=== PATIENT | male | born 1955 | race Caucasian/White ===

== ENCOUNTER → 2016-08-23 | Outpatient (CLI) | payer OTHER ==
[~2016-08-23] MED LIST: ALBU1AER9 INH; AMOX1TAB43 PO; FLUT1INH7 INH; FLUT220A INH; MIRT30TA2 PO; MULT-506 PO; NICO14DI5 TD; OLAN1TAB64 PO; PRED-301 PO; ROFL1TAB5 PO; ROSU20TA PO; SYMIN160 INH; TEMA30CA4 PO; TIOTCAP INH; VORT10TA PO; VORT10TA12 PEG; [UNRECOGNIZED DRUG - CODE] INH; doxepin PO
--- NOTE | 2016-08-23 09:56 | DIAGNOSTIC IMAGING REPORT ---
CHEST 2 VIEWS ROUTINE CLINICAL HISTORY: R06.02 Shortness of [id number] [id number] COMPARISON STUDY: 09/27/2012 FINDINGS: The bones soft tissues and hemidiaphragms are normal. The cardiomediastinal silhouette is normal. The lungs are clear. The pulmonary vasculature is normal. IMPRESSION: Negative chest. Electronically signed by: Wilber Canales M.D. 08/23/2016 9:55 AM Dictated Date/Time: 08/23/2016 9:54 AM
== END | disposition home or self-care (01) ==
LOC: C.RADBBURG 09:44
PROVIDERS: ATTEND Internal Medicine Pulmonary Disease
DX: J47.9 Bronchiectasis, uncomplicated (principal); R06.02 Shortness of breath

== ENCOUNTER → 2017-03-08 | Outpatient (CLI) | payer OTHER ==
--- NOTE | 2017-03-08 11:43 | DIAGNOSTIC IMAGING REPORT ---
CHEST 2 VIEWS ROUTINE HISTORY: 62 years-old Male BRONCHIECTASIS,COUGH COMPARISON: Chest radiographs 08/23/2016, CT chest 04/29/2015 TECHNIQUE: Frontal and lateral views of the chest FINDINGS: Cardiomediastinal and hilar silhouettes are within normal limits. There is atherosclerosis of the aorta. No pneumothorax, pleural effusion. Hazy right basilar opacity is best seen on the frontal projection. Lungs are mildly hyperinflated with diaphragmatic flattening. Abdomen is changes noted. Bones are grossly intact. IMPRESSION: 1. Hazy right basilar opacity seen best on the frontal projection suggests atelectasis or developing pneumonia. 2. Emphysema. The above report was generated using voice recognition software. It may contain grammatical, syntax or spelling errors. Electronically signed by: Trever Plummer M.D. 03/08/2017 11:42 AM Dictated Date/Time: 03/08/2017 11:40 AM
== END | disposition home or self-care (01) ==
LOC: C.RAD1850 11:28
PROVIDERS: ATTEND Physician Assistant
DX: J47.9 Bronchiectasis, uncomplicated (principal); R05 Cough; J43.9 Emphysema, unspecified

== ENCOUNTER 2017-03-22 15:41 | Inpatient (IN) | payer OTHER ==
[~2017-03-22] VITALS: Ht 167.6 cm; Wt 76.8 kg
[~2017-03-22 15:41] MED LIST changes: -AMOX1TAB43 PO; -FLUT1INH7 INH; -NICO14DI5 TD; -PRED-301 PO; -ROFL1TAB5 PO; -VORT10TA12 PEG
[2017-03-22 16:44] VITALS: BP 140/98; PULSE 111; TEMP 36.9; O2SAT 95; Ht 167.6 cm; Wt 76.8 kg
--- NOTE | 2017-03-22 16:56 | History and Physical ---
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 He was recently seen in her office on March 08 and was placed on Levaquin 500 daily x 7 days and prednisone taper for 8 days. His symptoms have not improved, therefore he went back to the office for an acute sick visit and was referred to the hospitalist service as a direct admission. The patient reports he has been feeling short of breath for at least 2 weeks now, with cough productive of yellow sputum. He is unable to walk more than 1 block before becoming acutely short of breath. He denies hemoptysis. The patient is a chronic smoker and admits to smoking at least 4 cigarettes today. The patient is interested in smoking cessation. He did have a DuoNeb treatment while in the office, and reports that that helped a little bit. While at the office today when he was seeing Evangelina Robles, she brought to his attention swelling around his neck. He reports that this has been present for some time now but it has worsened within the past week, it is nonpainful to touch, no reddness or warmth around the area. . 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 Hyperlipidemia bipolar disorder Insomnia Surgical history: History of ankle surgery History of eye surgery Abdominal hernia repair Wrist surgery Foot surgery Social History Smoking Status: Former Smoker Smokeless Tobacco Use: No Alcohol Use: none Drug Use: none Marital Status: single Housing status: lives alone Immunizations History of Influenza Vaccine: No History of Tetanus Vaccine?: No History of Pneumococcal: No History of Hepatitis B Vaccine: No Multi-Drug Resistant Organisms History of MDRO: No Allergies Coded Allergies: No Known Allergies (Verified , 12/04/15) Home Medications Scheduled Fluticasone Furoate-Vilanterol (Breo Ellipta 200-25 Mcg/INH), 1 PUFF INH DAILY Mirtazapine Soltab (Remeron Soltab), 30 MG PO HS Multivitamin (Multivitamin), 1 TAB PO DAILY Olanzapine (Zyprexa), 15 MG PO DAILY Roflumilast (Daliresp), 1 TAB PO DAILY Rosuvastatin Calcium (Crestor), 20 MG PO QAM Tiotropium [place] (Spiriva Handihaler), 1 CAP INH DAILY Vortioxetine HBr (Trintellix), 10 MG PEG DAILY [doxepin], 150 MG PO DAILY [ipratropium/alb], 3 ML INH DIRECTED Scheduled PRN Albuterol Sulfate (Proair Hfa), 2 PUFF INH QID PRN Temazepam (Restoril), 15 MG PO HS PRN for Sleep Review of Systems Constitutional: No fever, sweats or chills Eyes: No diplopia, no worsening or blurred vision ENT: normal hearing, no trouble swallowing Respiratory: See HPI. Cardiovascular: No chest pain, tightness or palpitations Abdomen: + Constipation. No pain, nausea, vomiting, diarrhea Musculoskeletal: No joint pain, calf pain, swelling Neurologic: No weakness, numbness/tingling, or balance problems, + does use a cane occasionally Psychiatric: Bipolar disorder Skin: No rash or itch Physical Exam General: awake, alert, no apparent distress Head: Normocephalic, atraumatic ENT: PERRL, EOMI, no pharyngeal exudate, mucous membranes moist, + cervical lymphadenopathy Chest: + supraclavicular edema-worse on right compared to left, soft to touch, + Prolonged expiratory phase, barrel chest, expiratory wheeze throughout, cough , on 2 L via NC, breath sounds throughout without rhonchi or rales. No axillary lymphadenopathy. Cardiac: Regular rate, + tachycardic, no murmur, no JVD, normal peripheral pulses, good capillary refill Abdominal: NABS x 4, slightly distended but soft, nontender to palpation, no rebound, guarding or tenderness. No femoral lymphadenopathy. 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 Shortness of breath ? Acute COPD exacerbation vs infectious etiology - Admit to telemetry - Failed outpatient therapy with antibiotics and prednisone - Checking CBC with differential, PRP, lactic acid, blood cultures 2, Ua and culture if indicated - Collect sputum culture- hx of acid fast bacilli - Check MRSA nasal swab - Checking a chest x-ray 2 view, consider CTA chest to r/o PE after PRP resulted - Pulmonary toilet ordered with Solu-Medrol 60 mg Q8H, Mucinex, flutter, incentive spirometry - Continue spiriva inh, daliresp 500 mcg PO daily, and breoeliptra inh - Start Zosyn and vancomycin IV 48 hours for empiric coverage since he has failed outpatient Levaquin 1 week. - Pt follows with Evangelina Valero as an outpatient in the pulmonary office, will consult Pulmonary team for further recommendations. New onset supraclavicular region lymphadenopathy - Pt reports as nonpainful with palpation. Appears bilaterally in supraclavicular regions, soft to the touch, appears to be worsening over the last week but patient reports has been present for an unknown amount of time. Overlying skin is not erythematous. Patient has not demonstrated fever. No other peripheral swelling. - Follow chest x-ray - Consider ultrasound or Chest CT, and consider FNA for further workup pending initial imaging results. Tachycardia - Checking a12 lead EKG now, Will check to make sure no underlying arrhythmia. - Patient does not take any oral hypertensive agents as an outpatient, likely due to his shortness of breath at this time. Will order Lopressor IV when necessary for tachycardia greater than 120 bpm. - Check troponin now and trend x 2 more sets - Consider CTA if Cr. ok to r/o PE. Bipolar disorder - Patient takes Trintellix 10 mg daily, will ask him to bring supply from home as this is not available as an inpatient - Continue olanzapine 15 mg daily - Follows with Dr. Veras at [id number], and was seen in office 1 month ago. Insomnia - Continue doxepin 150 mg QHS, mirtazapine 30 mg QHS, and temazepam 15 mg QHS prn Constipation - Ordered dulcolax tabs, MiraLAX, and milk of magnesia when necessary Hyperlipidemia - Continue Crestor 20 mg daily DVT prophylaxis: Heparin, teds, SCDs CODE STATUS: Full code Disposition: Admitted to telemetry, patient from home, lives alone. Level of Care Telemetry Advanced Directives Existing Advance Directive: No Existing Living Will: No Existing Power of Scaler Packer: No Existing Health Care Proxy: No Resuscitation Status FULL RESUSCITATION VTE Prophylaxis VTE Risk Assessment Done? Y/N: Yes Risk Level: Low Given or contraindicated: Unfractionated heparin SQ, T.E.D. Stockings, SCD's
[2017-03-22] MEDS ORDERED: PIPERACILL/TAZOBAC IV 4.5 GM in DEXTROSE 5% 100ML 100 ML IV SCH (17:30)
[2017-03-22] MEDS ORDERED: POLYETHYLENE (MIRALAX) 17 GM PACK PO PRN (17:30)
[2017-03-22] MEDS ORDERED: MAGNESIUM HYDROXIDE SUSP 30 ML UDC PO PRN (17:30)
[2017-03-22] MEDS ORDERED: TEMAZEPAM 15 MG CAP PO PRN (17:30)
[2017-03-22] MEDS ORDERED: ONDANSETRON INJ 2 MG/ML 2 ML VIAL IV PRN (17:30)
[2017-03-22] MEDS ORDERED: ACETAMINOPHEN 325 MG TAB PO PRN (17:30)
[2017-03-22] MEDS ORDERED: VORT10TA12 PEG (17:34)
[2017-03-22] MEDS ORDERED: ROFL1TAB5 PO (17:34)
[2017-03-22] MEDS ORDERED: FLUT1INH7 INH (17:34)
[2017-03-22 18:10] LABS: BASO % 0.9 %; BASO ABS # 0.08 K/uL (0-0.2); COMPLETE YES; HEMATOCRIT 48.2 % (42-52); IG% 1.2 %; LYMPH % 22.3 %; LYMPH ABS # 2.08 K/uL (1.2-3.4); MEAN CELL VOLUME 101.9 fL (80-100); MEAN CORPUSCULAR HEMOGLOBIN 33.2 pg (25-34); MEAN CORPUSCULAR HGB CONC 32.6 g/dl (32-36); MEAN PLATELET VOLUME 10.3 fL (7.4-10.4); MONO % 8.7 %; NEUT % 62.9 %; PLATELET COUNT 224 K/uL (130-400); RED BLOOD COUNT 4.73 M/uL (4.7-6.1); WHITE BLOOD COUNT 9.34 K/uL (4.8-10.8)
[2017-03-22] MEDS ORDERED: VANCOMYCIN INJ 2,000 MG in SODIUM CHLORIDE 0.9% 500ML 500 ML IV ONE (18:22)
[2017-03-22] MEDS ORDERED: METOPROLOL TARTRATE 1 MG/ML VIAL IV PRN (18:30)
[2017-03-22] MEDS ORDERED: PIPERACILL/TAZOBAC IV 3.375 GM in DEXTROSE 5% 100ML IV ONE (18:30)
[2017-03-22 18:32] LABS: BUN/CREATININE RATIO 22.1 (10-20); CALCIUM 9.7 mg/dl (8.5-10.1); CREATININE 0.88 mg/dl (0.60-1.40); POTASSIUM 4.1 mmol/L (3.5-5.1)
[2017-03-22] MEDS: NICOTINE 14 MG/24 HR TDSY TD SCH (18:42)
[2017-03-22] MEDS ORDERED: VANCOMYCIN CONSULT ACTIVE PRN (18:45)
[2017-03-22] MEDS ORDERED: PIPERACILL/TAZOBAC CONSULT ACTIVE PRN (18:45)
[2017-03-22 18:47] VITALS: BP 136/96; PULSE 111; TEMP 36.7; O2SAT 94
[2017-03-22] MEDS: METHYLPREDNISOLONE IV 60 MG in SYRINGE 0 ML IV SCH (18:50)
[2017-03-22] MEDS: BISACODYL 5 MG TABEC PO SCH (18:50)
[2017-03-22] MEDS: ALBUT/IPRATROP 3MG/0.5MG NEB 3 ML VIAL INH SCH (19:24)
[2017-03-22 19:26] VITALS: PULSE 106; O2SAT 95
[2017-03-22 19:45] LABS: INR 0.9 (0.9-1.1); PROTHROMBIN TIME (PATIENT) 9.9 SECONDS (9.0-12.0)
[2017-03-22 20:00] VITALS: O2SAT 95
[2017-03-22] MEDS ORDERED: OPTIRAY 320 IV PRN (20:00)
[2017-03-22] MEDS: DOXEPIN HCL 50 MG CAP PO SCH (20:40)
--- NOTE | 2017-03-22 20:40 | Pharmacy Progress Note ---
Pharmacy Abx Initial Consult Date of Service Mar 22, 2017. Pharmacy Dosing Scope Date of Consult: 03/22/17 Consultation requested by: Lucille Gordillo PA-C Pharmacy is consulted to initiate Vancomycin & Zosyn IV dosing therapy, order appropriate labs and adjust drug dose/frequency. Subjective The patient is a 62 year old male admitted on Mar 22, 2017 at 16:29. Objective Height (Feet): 5 Height (Inches): 6.00 Weight (Kilograms): 77.100 Vital Signs (Past 12Hrs) Vital Signs Past 12 Hours Date Time Temp Pulse Resp B/P (MAP) Pulse Ox O2 Delivery O2 Flow Rate FiO2 03/22/17 19:26 106 95 Nasal Cannula 2.0 03/22/17 18:47 36.7 111 24 136/96 (109) 94 Nasal Cannula 2.0 03/22/17 16:44 36.9 111 22 140/98 95 Nasal Cannula 2.0 Lab Results (24Hrs) Laboratory Tests (24 Hours) Test 03/22/17 17:47 Lactic Acid Level 0.3 mmol/L (0.4-2.0) L White Blood Count 9.34 K/uL (4.8-10.8) Red Blood Count 4.73 M/uL (4.7-6.1) Hemoglobin 15.7 g/dL (14.0-18.0) Hematocrit 48.2 % (42-52) Mean Corpuscular Volume 101.9 fL (80-100) H Mean Corpuscular Hemoglobin 33.2 pg (25-34) Mean Corpuscular Hemoglobin Concent 32.6 g/dl (32-36) Platelet Count 224 K/uL (130-400) Mean Platelet Volume 10.3 fL (7.4-10.4) Neutrophils (%) (Auto) 62.9 % Lymphocytes (%) (Auto) 22.3 % Monocytes (%) (Auto) 8.7 % Eosinophils (%) (Auto) 4.0 % Basophils (%) (Auto) 0.9 % Neutrophils # (Auto) 5.89 K/uL (1.4-6.5) Lymphocytes # (Auto) 2.08 K/uL (1.2-3.4) Monocytes # (Auto) 0.81 K/uL (0.11-0.59) H Eosinophils # (Auto) 0.37 K/uL (0-0.5) Basophils # (Auto) 0.08 K/uL (0-0.2) Micro Results Date/Time Source Procedure Growth Status 03/22/17 17:54 Blood Blood Culture Pending Received 03/22/17 17:47 Blood Blood Culture Pending Received 03/22/17 17:17 Nasal MRSA DNA Surveillance Screen Pending Ordered 03/22/17 17:51 Sputum Expectorated Sputum Gram Stain Pending Ordered 03/22/17 17:51 Sputum Expectorated Sputum Sputum Culture Pending Ordered Risk Factors for Resistance * Antimicrobial use within the last 90 days -- Levaquin 500mg po daily x 7 days prior to admission Assessment & Plan Assessment 62 year old male on empiric IV Vancomycin and Zosyn for unclear possible infectious process, possible pneumonia. * Patient was on Levaquin 500mg po daily x 7 days prior to admission * Renal function appears to be at baseline with recent sCr = 0.88 mg/dL and estimated CrCl ~87 mL/min. Estimated pharmacokinetic parameters: * Ke ~0.077/hr, T1/2 ~9 hrs Plan Vancomycin IV * Loading dose: 2000 mg (26 mg/kg) * Maintenance dose: 1250 mg IV (16 mg/kg) every 12 hours * Goal trough level for possible pneumonia : ~15 mcg/mL * Did not order trough level at this time due to empiric use of antibiotics. If Vancomycin to be continued >48 hours, will order level at that time Piperacillin/tazobactam * 3.375 g bolus administered over 30 minutes, then 3.375 g IV extended infusion every 8 hours for CrCl greater than 20 mL/min OR every 12 hours for CrCl 20 mL/ min or less and dialysis. Pharmacy will continue to follow and will adjust dose/frequency as necessary. Thank you.
[2017-03-22] MEDS: MIRTAZAPINE TAB 15 MG TAB PO SCH (20:41)
[2017-03-22] MEDS: GUAIFENESIN 600 MG TABCR PO SCH (20:56)
[2017-03-22] MEDS: ENOXAPARIN 40 MG/0.4 ML SYR SC SCH (20:57)
[2017-03-22] MEDS: INSULIN ASPART 100 UNITS/ML 3 ML PEN SC SCH (21:00)
--- NOTE | 2017-03-22 21:04 | DIAGNOSTIC IMAGING REPORT ---
CHEST 2 VIEWS ROUTINE CLINICAL HISTORY: Eval etiology of sob, hx COPD dyspnea COMPARISON STUDY: 03/08/2017 FINDINGS: Mild chronic interstitial change. No focal infiltrates. Diaphragms smooth. Lungs otherwise appear clear. IMPRESSION: Improved exam compared to the prior study. Mild chronic baseline interstitial change. The above report was generated using voice recognition software. It may contain grammatical, syntax or spelling errors. Electronically signed by: Wilber Canales M.D. 03/22/2017 9:03 PM Dictated Date/Time: 03/22/2017 9:02 PM
--- NOTE | 2017-03-22 21:11 | DIAGNOSTIC IMAGING REPORT ---
(CHEST FOR PE) ANGIO WITH CT DOSE: 545.82 mGy.cm HISTORY: Chest pain dyspnea TECHNIQUE: Multiaxial CT images of the chest were performed following the intravenous administration of contrast to evaluate the pulmonary arteries. Maximal intensity projection images were also obtained. A dose lowering technique was utilized adhering to the principles of ALARA. COMPARISON STUDY: 04/29/2015 FINDINGS: Mild atherosclerotic change thoracic aorta. Pulmonary vasculature enhances appropriately. There are no filling defects. Slight peribronchial thickening. Slight interstitial prominence throughout both hemithoraces. Small parenchymal infiltrate right base posteriorly. IMPRESSION: 1. No evidence for pulmonary embolus. 2. Mild interstitial and peribronchial prominence. 3. Focal infiltrate right base The above report was generated using voice recognition software. It may contain grammatical, syntax or spelling errors. Electronically signed by: Wilber Canales M.D. 03/22/2017 9:10 PM Dictated Date/Time: 03/22/2017 9:07 PM
[2017-03-22] MEDS: PIPERACILL/TAZOBAC IV 3.375 GM in DEXTROSE 5% 100ML IV SCH (22:41)
[2017-03-22 23:35] VITALS: BP 100/58; PULSE 102; TEMP 36.5; O2SAT 93
[2017-03-23] VITALS (9 sets, daily range): BP systolic 108–123; BP diastolic 72–92; PULSE 96–113; TEMP 36.6–36.8; O2SAT 92–96
[2017-03-23] MEDS: METHYLPREDNISOLONE IV 60 MG in SYRINGE 0 ML IV SCH ×3 (02:16→17:27)
[2017-03-23] MEDS: VANCOMYCIN INJ 1,250 MG in SODIUM CHLORIDE 0.9% 250ML 250 ML IV SCH ×2 (05:58→17:25)
[2017-03-23] MEDS: PIPERACILL/TAZOBAC IV 3.375 GM in DEXTROSE 5% 100ML IV SCH ×3 (06:00→20:41)
[2017-03-23 06:52] LABS: BASO % 0.2 %; BASO ABS # 0.02 K/uL (0-0.2); COMPLETE YES; EOS % 0.2 %; HEMATOCRIT 46.7 % (42-52); LYMPH % 6.7 %; LYMPH ABS # 0.69 K/uL (1.2-3.4); MEAN CELL VOLUME 100.9 fL (80-100); MEAN CORPUSCULAR HEMOGLOBIN 32.4 pg (25-34); MEAN CORPUSCULAR HGB CONC 32.1 g/dl (32-36); MEAN PLATELET VOLUME 10.4 fL (7.4-10.4); MONO % 0.7 %; NEUT % 91.2 %; PLATELET COUNT 226 K/uL (130-400); RED BLOOD COUNT 4.63 M/uL (4.7-6.1); WHITE BLOOD COUNT 10.28 K/uL (4.8-10.8)
[2017-03-23 06:59] LABS: URINE APPEARANCE CLEAR (CLEAR); URINE BILIRUBIN NEG (NEG); URINE COLOR YELLOW; URINE NITRITE NEG (NEG); URINE PH 5.5 (4.5-7.5); URINE SPECIFIC GRAVITY 1.031 (1.000-1.030); UROBILINOGEN NEG (NEG); ZZUR CULT IF INDIC CLEAN CATCH NO
[2017-03-23 07:01] LABS: MANUAL MICROSCOPIC REQUIRED? NO; REVIEW REQ? NO
[2017-03-23] MEDS: ALBUT/IPRATROP 3MG/0.5MG NEB 3 ML VIAL INH SCH ×4 (07:08→19:45)
[2017-03-23 07:18] LABS: BLOOD UREA NITROGEN 18 mg/dl (7-18); CALCIUM 9.1 mg/dl (8.5-10.1); CARBON DIOXIDE 26 mmol/L (21-32); CHLORIDE 106 mmol/L (98-107); CREATININE 0.82 mg/dl (0.60-1.40); ESTIMATED AVERAGE GLUCOSE 134 mg/dl; GLUCOSE 175 mg/dl (70-99); HA1C FLAG Normal (Normal); POTASSIUM 4.2 mmol/L (3.5-5.1); SODIUM 139 mmol/L (136-145)
[2017-03-23 07:22] LABS: CHOLESTEROL 231 mg/dl (0-200); CHOLESTEROL/HDL RATIO 4.9; HDL CHOLESTEROL 47 mg/dl; LDL CHOLESTEROL CALCULATED 140 mg/dl; TRIGLYCERIDES 221 mg/dl (0-150); VERY LOW DENSITY LIPOPROT CALC 44 mg/dl
[2017-03-23] MEDS: ROFLUMILAST 500 MCG TAB PO SCH (07:29)
[2017-03-23] MEDS: ROSUVASTATIN CALCIUM 20 MG TAB PO SCH (07:29)
[2017-03-23] MEDS: GUAIFENESIN 600 MG TABCR PO SCH (07:29)
[2017-03-23] MEDS: OLANZAPINE 10 MG TAB PO SCH (07:30)
[2017-03-23] MEDS: BISACODYL 5 MG TABEC PO SCH (07:30)
[2017-03-23] MEDS: TIOTROPIUM BROMIDE 5 PUFF/90 MCG INH INH SCH (07:31)
[2017-03-23] MEDS: INSULIN ASPART 100 UNITS/ML 3 ML PEN SC SCH ×4 (07:37→20:44)
--- NOTE | 2017-03-23 08:25 | Family Medicine Progress Note ---
Progress Note Date of Service Mar 23, 2017. Subjective Pt evaluation today including: conversation w/ patient, physical exam, chart review, lab review, review of studies Found pt resting comfortably in gurney. Says his left frontal chest area aches with a cough, same as has been for "weeks". Notes the bilateral neck swelling, says it's been around for six months, worse perhaps in last month, but no apparent impact on life. Denies any overnight or acute c/o. Constitutional: No fever, No chills Respiratory: + cough, + shortness of breath Cardiovascular: + chest pain, No edema Abdomen: No pain, No nausea, No vomiting, No diarrhea Musculoskeletal: + swelling (bilateral neck) Medications Current Inpatient Medications Medications (Trade) Dose Ordered Sig/Evelyn Route Start Time Stop Time Status Last Admin Dose Admin Enoxaparin Sodium (Lovenox Inj) 40 mg Q24H SC 03/22/17 21:00 04/21/17 20:59 03/22/17 20:57 40 MG Acetaminophen (Tylenol Tab) 650 mg Q4H PRN PO 03/22/17 17:30 04/21/17 17:29 Magnesium Hydroxide (Milk Of Magnesia Susp) 30 ml Q12H PRN PO 03/22/17 17:30 04/21/17 17:29 Ondansetron HCl (Zofran Inj) 4 mg Q6H PRN IV 03/22/17 17:30 04/21/17 17:29 Polyethylene (Miralax Powder Packet) 17 gm DAILY PRN PO 03/22/17 17:30 04/21/17 17:29 Albuterol/ Ipratropium (Duoneb) 3 ml QIDR INH 03/22/17 20:00 04/21/17 19:59 03/23/17 07:08 3 ML Methylprednisolone Sodium Succinate 60 mg/Syringe 0.96 ml @ 1.5 mls/min Q8H IV 03/22/17 18:30 04/21/17 18:29 03/23/17 02:16 1.5 MLS/MIN Nicotine (Nicoderm Cq 14MG Patch) 1 patch QAM TD 03/22/17 17:30 04/21/17 17:29 03/22/17 18:42 1 PATCH Miscellaneous (Remove Nicoderm Patch) 1 ea HS N/A 03/22/17 21:00 04/21/17 20:59 03/22/17 20:57 1 EA Guaifenesin (Mucinex Contr Rel Tab) 600 mg Q12 PO 03/22/17 21:00 04/21/17 20:59 03/23/17 07:29 600 MG Roflumilast (Daliresp Tab) 500 mcg DAILY PO 03/23/17 09:00 04/22/17 08:59 03/23/17 07:29 500 MCG Rosuvastatin Calcium (Crestor Tab) 20 mg QAM PO 03/23/17 09:00 04/22/17 08:59 03/23/17 07:29 20 MG Temazepam (Restoril Cap) 15 mg HS PRN PO 03/22/17 17:30 04/21/17 17:29 Tiotropium [place] (Spiriva Handihaler Inhaler) 1 puff DAILY INH 03/23/17 09:00 04/22/17 08:59 03/23/17 07:31 1 PUFF Miscellaneous Information (Order Awaiting Action) 1 ea QS N/A 03/23/17 00:00 04/22/17 00:00 Mirtazapine (Remeron Tab) 30 mg HS PO 03/22/17 21:00 04/21/17 20:59 03/22/17 20:41 30 MG Olanzapine (Zyprexa Tab) 15 mg DAILY PO 03/23/17 09:00 04/22/17 08:59 03/23/17 07:30 15 MG Doxepin HCl (Sinequan Cap) 150 mg HS PO 03/22/17 21:00 04/21/17 20:59 03/22/17 20:40 150 MG Miscellaneous Information (Order Awaiting Action) 1 ea QS N/A 03/23/17 00:00 04/22/17 00:00 Bisacodyl (Dulcolax Tab) 5 mg DAILY PO 03/22/17 18:15 04/21/17 18:14 Insulin Aspart (novoLOG ASPART) SLIDING SCALE G... ACHS SC 03/22/17 21:00 04/21/17 20:59 03/23/17 07:37 4 UNITS Metoprolol Tartrate (Lopressor Iv) 5 mg Q4 PRN IV 03/22/17 18:30 04/21/17 18:29 Vancomycin HCl (Consult) 1 ea UD PRN N/A 03/22/17 18:45 04/21/17 18:44 Piperacillin Sod/ Tazobactam Sod (Consult) 1 ea UD PRN N/A 03/22/17 18:45 04/21/17 18:44 Ioversol (Optiray 320) 100 ml UD PRN IV 03/22/17 20:00 03/26/17 19:59 Piperacillin Sod/ Tazobactam Sod 3.375 gm/Dextrose 115 ml @ 28.75 mls/ hr Q8H IV 03/22/17 22:00 03/24/17 21:59 03/23/17 06:00 28.75 MLS/HR Vancomycin HCl 1250 mg/Sodium Chloride 275 ml @ 125 mls/hr Q12H IV 03/23/17 06:00 03/25/17 05:59 03/23/17 05:58 125 MLS/HR Objective Vital Signs Date Time Temp Pulse Resp B/P (MAP) Pulse Ox O2 Delivery O2 Flow Rate FiO2 03/23/17 07:10 96 18 94 Nasal Cannula 2.0 03/23/17 07:05 36.6 98 20 121/86 (98) 94 03/23/17 04:00 Nasal Cannula 2.0 03/23/17 03:50 36.8 104 22 108/78 (88) 93 Nasal Cannula 2.0 03/23/17 00:01 Nasal Cannula 2.0 03/22/17 23:35 36.5 102 24 100/58 (72) 93 Nasal Cannula 2.0 03/22/17 20:00 95 Nasal Cannula 2.0 03/22/17 19:26 106 95 Nasal Cannula 2.0 03/22/17 18:47 36.7 111 24 136/96 (109) 94 Nasal Cannula 2.0 03/22/17 16:44 36.9 111 22 140/98 95 Nasal Cannula 2.0 Physical Exam General Appearance: no apparent distress (speaking easily in full sentences, NC oxygen in place) Respiratory/Chest: no respiratory distress, + wheezing (diffuse expiratory wheezing) Cardiovascular: regular rate, rhythm, no murmur Abdomen: non tender, soft Extremities: no pedal edema Laboratory Results 03/23/17 06:09 Red Blood Count 4.63, Mean Corpuscular Volume 100.9, Mean Corpuscular Hemoglobin 32.4, Mean Corpuscular Hemoglobin Concent 32.1, Mean Platelet Volume 10.4, Neutrophils (%) (Auto) 91.2, Lymphocytes (%) (Auto) 6.7, Monocytes (%) ( Auto) 0.7, Eosinophils (%) (Auto) 0.2, Basophils (%) (Auto) 0.2, Neutrophils # ( Auto) 9.38, Lymphocytes # (Auto) 0.69, Monocytes # (Auto) 0.07, Eosinophils # ( Auto) 0.02, Basophils # (Auto) 0.02 03/23/17 06:09 Test 03/22/17 17:47 03/23/17 06:09 03/23/17 06:15 03/23/17 06:35 Prothrombin Time 9.9 SECONDS (9.0-12.0) Prothromb Time International Ratio 0.9 (0.9-1.1) Lactic Acid Level 0.3 mmol/L (0.4-2.0) White Blood Count 10.28 K/uL (4.8-10.8) Red Blood Count 4.63 M/uL (4.7-6.1) Hemoglobin 15.0 g/dL (14.0-18.0) Hematocrit 46.7 % (42-52) Mean Corpuscular Volume 100.9 fL (80-100) Mean Corpuscular Hemoglobin 32.4 pg (25-34) Mean Corpuscular Hemoglobin Concent 32.1 g/dl (32-36) Platelet Count 226 K/uL (130-400) Mean Platelet Volume 10.4 fL (7.4-10.4) Neutrophils (%) (Auto) 91.2 % Lymphocytes (%) (Auto) 6.7 % Monocytes (%) (Auto) 0.7 % Eosinophils (%) (Auto) 0.2 % Basophils (%) (Auto) 0.2 % Neutrophils # (Auto) 9.38 K/uL (1.4-6.5) Lymphocytes # (Auto) 0.69 K/uL (1.2-3.4) Monocytes # (Auto) 0.07 K/uL (0.11-0.59) Eosinophils # (Auto) 0.02 K/uL (0-0.5) Basophils # (Auto) 0.02 K/uL (0-0.2) RDW Standard Deviation 55.0 fL (36.4-46.3) RDW Coefficient of Variation 15.0 % (11.5-14.5) Immature Granulocyte % (Auto) 1.0 % Immature Granulocyte # (Auto) 0.10 K/uL (0.00-0.02) Anion Gap 7.0 mmol/L (3-11) Est Creatinine Clear Calc Drug Dose 86.4 ml/min Estimated GFR () 111.4 Estimated GFR (Non- 96.1 BUN/Creatinine Ratio 22.0 (10-20) Estimated Average Glucose 134 mg/dl Hemoglobin A1c 6.3 % (4.5-5.6) Calcium Level 9.1 mg/dl (8.5-10.1) Troponin I < 0.015 ng/ml (0-0.045) Triglycerides Level 221 mg/dl (0-150) Cholesterol Level 231 mg/dl (0-200) HDL Cholesterol 47 mg/dl LDL Cholesterol, Calculated 140 mg/dl VLDL Cholesterol, Calculated 44 mg/dl Cholesterol/HDL Ratio 4.9 Urine Color YELLOW Urine Appearance CLEAR (CLEAR) Urine pH 5.5 (4.5-7.5) Urine Specific [place] 1.031 (1.000-1.030) Urine Protein NEG (NEG) Urine Glucose (UA) NEG (NEG) Urine Ketones NEG (NEG) Urine Occult Blood NEG (NEG) Urine Nitrite NEG (NEG) Urine Bilirubin NEG (NEG) Urine Urobilinogen NEG (NEG) Urine Leukocyte Esterase NEG (NEG) Bedside Glucose 179 mg/dl (70-99) Test 03/23/17 08:18 Date/Time Source Procedure Growth Status 03/22/17 22:45 Nasal MRSA DNA Surveillance Screen - Final Specimen Negative for MRSA by DNA Probe Complete Assessment and Plan 62 yo M with PMHx of advanced COPD, bronchietasis, chronic tobacco smoker of 0.5 -1 ppd x 45 years, and sensorineural hearing loss, 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 Shortness of breath: Hx COPD. Back on 30Aug, was placed on levaquin 500 mg daily x7d and prednisone taper x 8d. No reported sx improvement. - 13Sep MRSA nasal swab negative [ ] 13Sep BCx x 2 pending [ ] Sputum cx ordered on 13Sep was cancelled. Will inquire on rounds if will pursue further. - 13Sep CTA for PE: 1. No evidence for pulmonary embolus. 2. Mild interstitial and peribronchial prominence. 3. Focal infiltrate right base - Pulmonary toilet ordered with Solu-Medrol 60 mg Q8H, Mucinex, flutter, incentive spirometry - Continue spiriva inh, daliresp 500 mcg PO daily, and breoeliptra inh - Start Zosyn and vancomycin IV 48 hours for empiric coverage since he has failed outpatient Levaquin 1 week. - Pt follows with Evangelina Valero as an outpatient in the pulmonary office, will consult Pulmonary team for further recommendations. [ ] Will discuss status of pulm consult on rounds. New onset supraclavicular region lymphadenopathy: Per pt, has been present for about six months, worse in past month (prior reports stated in past week). No prior PCM workup per pt. Says not painful and doesn't limit his speaking, swallowing, neck ROM, or cause impact on ADL's. - No ttp. Overlying skin is not erythematous. Patient has not demonstrated fever. No other peripheral swelling. - Consider ultrasound or Chest CT, and consider FNA for further workup pending initial imaging results. Tachycardia: Noted on admit. EKG on 13Sep was sinus tachy 102 without other acute changes. TnI x 3 negative. CTA did not show evidence of PE. - Patient does not take any oral hypertensive agents as an outpatient, likely due to his shortness of breath at this time. Will order Lopressor IV when necessary for tachycardia greater than 120 bpm. PMH Bipolar disorder: - Patient takes Trintellix 10 mg daily, will ask him to bring supply from home as this is not available as an inpatient - Continue olanzapine 15 mg daily - Follows with Dr. Veras at [facility] [id number], and was seen in office 1 month ago. PMH Insomnia: - Continue doxepin 150 mg QHS, mirtazapine 30 mg QHS, and temazepam 15 mg QHS prn ? Constipation: - Ordered dulcolax tabs, MiraLAX, and milk of magnesia when necessary PMH Hyperlipidemia: - Continue Crestor 20 mg daily Disposition: Patient from home, lives alone. DVT prophylaxis: Heparin, teds, SCDs CODE STATUS: Full code Will discuss all the above on attending rounds this morning. GAYE, PGY1 Informatics Pharmacist Tracking Resident Involvement: Resident Care Provided Care Provided: Adult [facility] (inpt rounds) History Resident Physician Supervision Note: I was present with Dr. Whipple during the history and exam. I discussed the case with the resident and agree with the findings and plan as documented in the note. Any exceptions or clarifications are listed here. pt resting in bed with improving minimally productive cough and shortness of breath. Tolerating nebulizer care well. B/L neck swelling increased from chronic but still nonpainful. General Appearance: WD/WN, no apparent distress Neck: non-tender, full range of motion, supple, other (?swelling over the supraclavicular soft tissue b/l which is nonpainful) Respiratory: chest non-tender, no respiratory distress, decreased breath sounds , wheezing (diffuse b/l exp) Cardiovascular: normal peripheral pulses, regular rate, rhythm, no edema, no murmur Assessment/Plan 62 y/o male h/o COPD, ~40pk year smoking hx, AF[employer] p/w worsening SOB/cough SOB/Cough - likely COPD exacerbation failing outpatient therapy - pulmonology aware, input appreciated - vanc/zosyn, solumedrol, continue inhaler regimen ( minus breo, as is on solumedrol) B/L Neck swelling - US today Tachycardia - increased HR potentially 2/2 respiratory demand v. pulmonary HTN v. underlying cardiac pathology Constipation - bowel regimen Bipolar - continue outpatient regimen HLD - continue crestor
--- NOTE | 2017-03-23 09:19 | Pulmonary Consultation ---
History General Date of Service: Mar 23, 2017. Stated Complaint: Copd Exacerbation, Tachycardia HPI The patient is a 62 year old male who presents to [facility] with complaints of Copd Exacerbation, Tachycardia. The patient's primary care provider is Bro Thomas PA-C. 62-year-old male with history of COPD,bronchiectasis, EVE, current tobacco user of half a pack to 1 pack per day for the last 45 years, bipolar disorder and hyperlipidemia.He follows up with Dr. Hammer's office and was transferred yesterday from pulmonary clinic as a direct admit for COPD exacerbation. He had been recently seen by JOSE MANUEL Valero on March 08 2017 in pulmonary clinic. He was prescribed Levaquin 500 mg daily for a week as well as a steroid taper for 8 days.He returned with minimal improvement of his symptoms of productive yellow cough and worsening shortness of breath especially on exertion. He denies any fever, chills, chest pain, lower extremity edema or swelling, recent travel or sick contacts. He denies any hemoptysis. He also states that he has had some swelling in this neck that has increase over the last 6 months, nontender. He was given DuoNeb treatment on the office which improved his symptoms a little bit but then transferred over to Hospital for further evaluation. Vital signs since arrival have shown MAXIMUM TEMPERATURE 36.8, blood pressure ranging from 108/78-121/86, pulse 96-104, respiratory rate 18-22, pulse oximetry 93-94 on 2 L nasal cannula. His current home medications include albuterol sulfate 2 puffs inhaler 4 times a day when necessary, Breo Ellipta 200 -25 g 1 puff inhalation daily, mirtazapine 30 mg by mouth at bedtime, multivitamin 1 tab by mouth daily, olanzapine 15 mg by mouth daily, telemetry rest 500 g tab daily, rosuvastatin 20 mg tab daily, temazepam 15 and by mouth at bedtime when necessary and Spiriva one Inhalation daily. CT chest showed evidence of pulmonary embolus, mild interstitial and peribronchial prominence with a focal opacification of the right lower lobe as well as chronic emphysematous changes. CT chest from 04/29/2015 showed emphysema, bronchiectasis of upper and lower lobes with some modest tracheostenosis. He is status post bronchoscopy done on 12/04/2015. The pathology from bronchial washings of right lower lobe showed no malignant cells; respiratory epithelial cells, squamous cells and pulmonary macrophages. Bacteria culture showed moderate normal emelia. Fungal culture showed saprophyticus fungus. AFB cultures showed Mycobacterium gordonae. He is currently on Vancomycin and Zosyn IV and Solumedrol. This morning he states that he is feeling somewhat better. He some pain in his left side of chest associated with deep inspiration. Historian: patient Onset: last week Severity: moderate Complaint Status: improved Review of Systems Constitutional: reports: as stated in HPI Eyes: reports: as stated in HPI ENT: reports: as stated in HPI Cardiovascular: reports: as stated in HPI Respiratory: reports: as stated in HPI Gastrointestinal: reports: as stated in HPI Genitourinary - Male: reports: as stated in HPI Musculoskeletal: reports: as stated in HPI Integumentary: reports: as stated in HPI Neurologic: reports: as stated in HPI Psychiatric: reports: as stated in HPI Endocrine: as stated in HPI Hematologic / Lymphatic: as stated in HPI Allergic / Immunologic: as stated in HPI All Other Symptoms All Other Systems: Reviewed and Negative Past Medical History Past Medical History: COPD Bronchiectasis EVE Hyperlipidemia Seasonal allergies Tobacco use disorder Tracheal stenosis Past Surgical History: History of ankle surgery History of eye surgery History of foot surgery right History of hernia repair History of wrist surgery Family History His family history is significant for alcoholism, diabetes, myocardial infarction. Social History Hx Tobacco Use In Past Year?: Yes Smoking Status: Current Every Day Smoker Marital status: single Housing status: lives alone Immunizations History of Influenza Vaccine: No History of Tetanus Vaccine?: No History of Pneumococcal: No History of Hepatitis B Vaccine: No History of MDRO History of MDRO: No Allergies Coded Allergies: No Known Allergies (Verified , 12/04/15) Current Medications Reported Home Medications Medications Dose Route/Sig Max Daily Dose Days Date Category Daliresp (Roflumilast) 500 Mcg Tab 1 Tab PO DAILY 90 03/22/17 Reported Breo Ellipta 200-25 Mcg/INH (Fluticasone Furoate-Vilanterol) 1 Inh Inh 1 Puff INH DAILY 03/22/17 Reported Trintellix (Vortioxetine HBr) 10 Mg Tab 10 Mg PEG DAILY 03/22/17 Reported Zyprexa (Olanzapine) 15 Mg Tab 15 Mg PO DAILY 12/04/15 Reported Remeron Soltab (Mirtazapine) 30 Mg Soltab 30 Mg PO HS 12/04/15 Reported [doxepin] 150 Mg PO DAILY 12/04/15 Reported [ipratropium/alb] 3 Ml INH DIRECTED 12/04/15 Reported Spiriva Handihaler (Tiotropium [place]) 18 Mcg/ Aerp 1 Cap INH DAILY 12/04/15 Reported Multivitamin (Multivitamins) Tab 1 Tab PO DAILY 10/05/12 Reported Crestor (Rosuvastatin Calcium) 20 Mg Tab 20 Mg PO QAM 09/27/12 Reported Proair Hfa (Albuterol Sulfate) 108 Mcg/ Aer 2 Puff INH QID PRN 09/27/12 Reported Restoril (Temazepam) 30 Mg Cap 15 Mg PO HS PRN 09/27/12 Reported Physical Physical Exam Vital Signs: Date Time Temp Pulse Resp B/P (MAP) Pulse Ox O2 Delivery O2 Flow Rate FiO2 03/23/17 07:10 96 18 94 Nasal Cannula 2.0 03/23/17 07:05 36.6 98 20 121/86 (98) 94 03/23/17 04:00 Nasal Cannula 2.0 03/23/17 03:50 36.8 104 22 108/78 (88) 93 Nasal Cannula 2.0 03/23/17 00:01 Nasal Cannula 2.0 03/22/17 23:35 36.5 102 24 100/58 (72) 93 Nasal Cannula 2.0 03/22/17 20:00 95 Nasal Cannula 2.0 03/22/17 19:26 106 95 Nasal Cannula 2.0 03/22/17 18:47 36.7 111 24 136/96 (109) 94 Nasal Cannula 2.0 03/22/17 16:44 36.9 111 22 140/98 95 Nasal Cannula 2.0 General Appearance: WD/WN, NO APPARENT DISTRESS Head: NORMOCEPHALIC, ATRAUMATIC Eyes: PERRLA, NO DISCHARGE, EOMI, SCLERAE NORMAL ENT: NORMAL THROAT EXAM Neck: NORMAL RANGE OF MOTION, NO STRIDOR, SUPPLE, NO LYMPHADENOPATHY, other ( bilateral supraclavicular lymphadenopathy, nontender) Respiratory: other (Bilateral wheezing with prolonged expiratory phase) Cardiovasular: REGULAR RATE/RHYTHM, NORMAL S1S2 Abdomen: NON TENDER, NORMAL BOWEL SOUNDS Back: NORMAL INSPECTION Upper Extremities: NO EDEMA, NO DEFORMITY, NORMAL ROM, other (no cyanosis, no clubbing) Lower Extremities: NO EDEMA, NO DEFORMITY, NORMAL ROM Pulses: dorsalis pedis (R) (2+), dorsalis pedis (L) (2+) Neuro: ALERT, ORIENTED x 3, NORMAL MOTOR EXAM, NORMAL SENSATION, NORMAL SPEECH , NORMAL GAIT Psychiatric: NO SUICIDAL IDEATION, CONTRACTS FOR SAFETY, flat affect Diagnostics Labs Results Past 24 Hours Test 03/22/17 17:47 03/22/17 20:05 03/23/17 00:32 03/23/17 06:09 Range/Units White Blood Count 9.34 10.28 4.8-10.8 K/uL Red Blood Count 4.73 4.63 4.7-6.1 M/uL Hemoglobin 15.7 15.0 14.0-18.0 g/dL Hematocrit 48.2 46.7 42-52 % Mean Corpuscular Volume 101.9 100.9 80-100 fL Mean Corpuscular Hemoglobin 33.2 32.4 25-34 pg Mean Corpuscular Hemoglobin Concent 32.6 32.1 32-36 g/dl Platelet Count 224 226 130-400 K/uL Mean Platelet Volume 10.3 10.4 7.4-10.4 fL Neutrophils (%) (Auto) 62.9 91.2 % Lymphocytes (%) (Auto) 22.3 6.7 % Monocytes (%) (Auto) 8.7 0.7 % Eosinophils (%) (Auto) 4.0 0.2 % Basophils (%) (Auto) 0.9 0.2 % Neutrophils # (Auto) 5.89 9.38 1.4-6.5 K/uL Lymphocytes # (Auto) 2.08 0.69 1.2-3.4 K/uL Monocytes # (Auto) 0.81 0.07 0.11-0.59 K/uL Eosinophils # (Auto) 0.37 0.02 0-0.5 K/uL Basophils # (Auto) 0.08 0.02 0-0.2 K/uL RDW Standard Deviation 56.8 55.0 36.4-46.3 fL RDW Coefficient of Variation 15.2 15.0 11.5-14.5 % Immature Granulocyte % (Auto) 1.2 1.0 % Immature Granulocyte # (Auto) 0.11 0.10 0.00-0.02 K/uL Prothrombin Time 9.9 9.0-12.0 SECONDS Prothromb Time International Ratio 0.9 0.9-1.1 Sodium Level 143 139 136-145 mmol/L Potassium Level 4.1 4.2 3.5-5.1 mmol/L Chloride Level 109 106 98-107 mmol/L Carbon Dioxide Level 29 26 21-32 mmol/L Anion Gap 5.0 7.0 3-11 mmol/L Blood Urea Nitrogen 19 18 7-18 mg/dl Creatinine 0.88 0.82 0.60-1.40 mg/dl Est Creatinine Clear Calc Drug Dose 87.2 86.4 ml/min Estimated GFR () 108.2 111.4 Estimated GFR (Non- 93.4 96.1 BUN/Creatinine Ratio 22.1 22.0 10-20 Random Glucose 117 175 70-99 mg/dl Lactic Acid Level 0.3 0.4-2.0 mmol/L Calcium Level 9.7 9.1 8.5-10.1 mg/dl Troponin I < 0.015 < 0.015 < 0.015 0-0.045 ng/ml Bedside Glucose 172 70-99 mg/dl Estimated Average Glucose 134 mg/dl Hemoglobin A1c 6.3 4.5-5.6 % Triglycerides Level 221 0-150 mg/dl Cholesterol Level 231 0-200 mg/dl HDL Cholesterol 47 mg/dl LDL Cholesterol, Calculated 140 mg/dl VLDL Cholesterol, Calculated 44 mg/dl Cholesterol/HDL Ratio 4.9 Test 03/23/17 06:15 03/23/17 06:35 Range/Units Urine Color YELLOW Urine Appearance CLEAR CLEAR Urine pH 5.5 4.5-7.5 Urine Specific [place] 1.031 1.000-1.030 Urine Protein NEG NEG Urine Glucose (UA) NEG NEG Urine Ketones NEG NEG Urine Occult Blood NEG NEG Urine Nitrite NEG NEG Urine Bilirubin NEG NEG Urine Urobilinogen NEG NEG Urine Leukocyte Esterase NEG NEG Bedside Glucose 179 70-99 mg/dl Microbiology Results 03/22/17 Blood Culture, Received Pending 03/22/17 Blood Culture, Received Pending 03/22/17 MRSA DNA Surveillance Screen - Final, Complete Specimen Negative for MRSA by DNA Probe Diagnostic Radiology Chest x-ray 03/22/2017 FINDINGS: Mild chronic interstitial change. No focal infiltrates. Diaphragms smooth. Lungs otherwise appear clear. (CHEST FOR PE) ANGIO WITH FINDINGS: Mild atherosclerotic change thoracic aorta. Pulmonary vasculature enhances appropriately. There are no filling defects. Slight peribronchial thickening. Slight interstitial prominence throughout both hemithoraces. Small parenchymal infiltrate right base posteriorly. IMPRESSION: 1. No evidence for pulmonary embolus. 2. Mild interstitial and peribronchial prominence. 3. Focal infiltrate right base EKG EKG 03/22/2017 Sinus tachycardia 102 bpm Impression Assessment and Plan COPD exacerbation EVE Bronchiectasis Right lower lobe pneumonia Tobacco use disorder Supraclavicular lymphadenopathy At the current time I would continue patient patient has severe COPD which is most likely exacerbated from right lower lobe pneumonia and failing outpatient empiric antibiotic therapy. Follow up blood cultures and obtain sputum cultures. Continue supplemental oxygen to maintain SaO2 above 92%. Patient does have history of EVE so consider CPAP at night. Continue with Duonebs q6h, Solumedrol 60 mg q8h, Spiriva and Daliresp. Continue with aggressive chest PT, flutter valve. For supraclavicular lymphadenopathy--will require more imaging and defer this to primary team. I appreciate the consult.
[2017-03-23] MEDS: NICOTINE 14 MG/24 HR TDSY TD SCH (09:44)
[2017-03-23] MEDS ORDERED: NURSING DECISION MEDICATION ORDER SCH (13:30)
[2017-03-23] MEDS ORDERED: NURSING VERBAL MED ORDER ONE (13:30)
--- NOTE | 2017-03-23 13:34 | DIAGNOSTIC IMAGING REPORT ---
BILATERAL SUPRACLAVICULAR ULTRASOUND HISTORY: Bilateral supraclavicular soft tissue swelling COMPARISON: Chest CTA 03/22/2017. FINDINGS: No masses or fluid collections within the supraclavicular locations. No lymphadenopathy. IMPRESSION: No sonographic abnormality within the bilateral supraclavicular locations. Electronically signed by: Selvin Mueller M.D. 03/23/2017 1:33 PM Dictated Date/Time: 03/23/2017 1:28 PM
[2017-03-23] MEDS ORDERED: NICOTINE POLACRILEX 2 MG GUM MT PRN (13:45)
[2017-03-23] MEDS ORDERED: SODIUM CHLORIDE 0.9% 1000ML 1,000 ML IV ONE (17:00)
[2017-03-23] MEDS: DOXEPIN HCL 50 MG CAP PO SCH (20:40)
[2017-03-23] MEDS: MIRTAZAPINE TAB 15 MG TAB PO SCH (20:40)
[2017-03-23] MEDS: ENOXAPARIN 40 MG/0.4 ML SYR SC SCH (20:41)
[2017-03-23] MEDS: TRINTELLIX: ORDER AWAITING ACTION SCH (23:16)
[2017-03-24] VITALS (12 sets, daily range): BP systolic 103–139; BP diastolic 69–92; PULSE 94–112; TEMP 36.4–36.8; O2SAT 92–97
[2017-03-24] MEDS: METHYLPREDNISOLONE IV 60 MG in SYRINGE 0 ML IV SCH ×3 (02:39→18:30)
[2017-03-24] MEDS: PIPERACILL/TAZOBAC IV 3.375 GM in DEXTROSE 5% 100ML IV SCH ×3 (05:41→22:10)
[2017-03-24] MEDS: VANCOMYCIN INJ 1,250 MG in SODIUM CHLORIDE 0.9% 250ML 250 ML IV SCH ×2 (05:41→18:00)
--- NOTE | 2017-03-24 05:43 | Family Medicine Progress Note ---
Progress Note Date of Service Mar 24, 2017. Subjective Pt evaluation today including: conversation w/ patient, physical exam, chart review, lab review Found pt sitting up, watching tv, appeared comfortable. Says that his breathing was improved yesterday afternoon but feels a little harder this morning. Says hasn't been able to cough any sputum up yet for a sample. Denies any new CP, SOB, pains or other concerns besides baseline admit sx. No reported overnight events. Constitutional: No fever, No chills Respiratory: + cough, + shortness of breath, + dyspnea at rest Cardiovascular: No chest pain, No edema Abdomen: No pain, No nausea, No vomiting, No diarrhea Medications Current Inpatient Medications Medications (Trade) Dose Ordered Sig/Evelyn Route Start Time Stop Time Status Last Admin Dose Admin Enoxaparin Sodium (Lovenox Inj) 40 mg Q24H SC 03/22/17 21:00 04/21/17 20:59 03/23/17 20:41 40 MG Acetaminophen (Tylenol Tab) 650 mg Q4H PRN PO 03/22/17 17:30 04/21/17 17:29 Magnesium Hydroxide (Milk Of Magnesia Susp) 30 ml Q12H PRN PO 03/22/17 17:30 04/21/17 17:29 Ondansetron HCl (Zofran Inj) 4 mg Q6H PRN IV 03/22/17 17:30 04/21/17 17:29 Polyethylene (Miralax Powder Packet) 17 gm DAILY PRN PO 03/22/17 17:30 04/21/17 17:29 Albuterol/ Ipratropium (Duoneb) 3 ml QIDR INH 03/22/17 20:00 04/21/17 19:59 03/23/17 19:45 3 ML Methylprednisolone Sodium Succinate 60 mg/Syringe 0.96 ml @ 1.5 mls/min Q8H IV 03/22/17 18:30 04/21/17 18:29 03/24/17 02:39 1.5 MLS/MIN Nicotine (Nicoderm Cq 14MG Patch) 1 patch QAM TD 03/22/17 17:30 04/21/17 17:29 03/24/17 07:38 1 PATCH Miscellaneous (Remove Nicoderm Patch) 1 ea HS N/A 03/22/17 21:00 04/21/17 20:59 03/23/17 21:00 1 EA Guaifenesin (Mucinex Contr Rel Tab) 600 mg Q12 PO 03/22/17 21:00 04/21/17 20:59 Future Hold 03/23/17 07:29 600 MG Roflumilast (Daliresp Tab) 500 mcg DAILY PO 03/23/17 09:00 04/22/17 08:59 03/24/17 07:37 500 MCG Rosuvastatin Calcium (Crestor Tab) 20 mg QAM PO 03/23/17 09:00 04/22/17 08:59 03/24/17 07:36 20 MG Temazepam (Restoril Cap) 15 mg HS PRN PO 03/22/17 17:30 04/21/17 17:29 Tiotropium [place] (Spiriva Handihaler Inhaler) 1 puff DAILY INH 03/23/17 09:00 04/22/17 08:59 03/24/17 07:36 1 PUFF Miscellaneous Information (Order Awaiting Action) 1 ea QS N/A 03/23/17 00:00 04/22/17 00:00 Mirtazapine (Remeron Tab) 30 mg HS PO 03/22/17 21:00 04/21/17 20:59 03/23/17 20:40 30 MG Olanzapine (Zyprexa Tab) 15 mg DAILY PO 03/23/17 09:00 04/22/17 08:59 03/24/17 07:35 15 MG Doxepin HCl (Sinequan Cap) 150 mg HS PO 03/22/17 21:00 04/21/17 20:59 03/23/17 20:40 150 MG Miscellaneous Information (Order Awaiting Action) 1 ea QS N/A 03/23/17 00:00 04/22/17 00:00 Bisacodyl (Dulcolax Tab) 5 mg DAILY PO 03/22/17 18:15 04/21/17 18:14 03/24/17 07:35 5 MG Insulin Aspart (novoLOG ASPART) SLIDING SCALE G... ACHS SC 03/22/17 21:00 04/21/17 20:59 03/24/17 07:44 3 UNITS Metoprolol Tartrate (Lopressor Iv) 5 mg Q4 PRN IV 03/22/17 18:30 04/21/17 18:29 Vancomycin HCl (Consult) 1 ea UD PRN N/A 03/22/17 18:45 04/21/17 18:44 Piperacillin Sod/ Tazobactam Sod (Consult) 1 ea UD PRN N/A 03/22/17 18:45 04/21/17 18:44 Ioversol (Optiray 320) 100 ml UD PRN IV 03/22/17 20:00 03/26/17 19:59 Piperacillin Sod/ Tazobactam Sod 3.375 gm/Dextrose 115 ml @ 28.75 mls/ hr Q8H IV 03/22/17 22:00 03/24/17 21:59 03/24/17 05:41 28.75 MLS/HR Vancomycin HCl 1250 mg/Sodium Chloride 275 ml @ 125 mls/hr Q12H IV 03/23/17 06:00 03/25/17 05:59 03/24/17 05:41 125 MLS/HR Objective Vital Signs Date Time Temp Pulse Resp B/P (MAP) Pulse Ox O2 Delivery O2 Flow Rate FiO2 03/24/17 04:04 36.5 100 18 121/74 (90) 93 Nasal Cannula 2.0 03/24/17 04:00 Nasal Cannula 2.0 03/24/17 00:19 36.5 108 18 110/80 (90) 92 Nasal Cannula 2.0 03/24/17 00:00 Nasal Cannula 2.0 03/23/17 20:00 Nasal Cannula 2.0 03/23/17 19:25 98 18 96 Nasal Cannula 2.0 03/23/17 18:56 36.8 104 24 123/92 (102) 92 Nasal Cannula 2.0 03/23/17 16:00 Nasal Cannula 2.0 03/23/17 15:25 105 18 93 Nasal Cannula 2.0 03/23/17 15:14 36.6 100 24 119/72 (88) 92 Nasal Cannula 2.0 03/23/17 11:47 36.7 113 20 110/80 (90) 93 03/23/17 11:04 108 18 94 Nasal Cannula 2.0 03/23/17 08:00 Room Air Physical Exam General Appearance: no apparent distress (speaking a few words, seems his baseline () Neck: + pertinent finding (bilateral supraclavicular soft tissue swelling, unchanged from 14Sep) Respiratory/Chest: no respiratory distress (not at baseline), no accessory muscle use, + wheezing (diffuse expiratory wheezing) Cardiovascular: no edema, no murmur, + tachycardia (borderline, regular) Abdomen: normal bowel sounds, non tender, soft Neurologic/Psychiatric: + depressed affect (seems baseline for pt) Skin: no rash (no supraclavicular erythema/rash (B)) Laboratory Results 03/24/17 05:29 Red Blood Count 4.07, Mean Corpuscular Volume 101.5, Mean Corpuscular Hemoglobin 33.4, Mean Corpuscular Hemoglobin Concent 32.9, Mean Platelet Volume 11.0, Neutrophils (%) (Auto) 94.2, Lymphocytes (%) (Auto) 1.5, Monocytes (%) ( Auto) 3.5, Eosinophils (%) (Auto) 0.0, Basophils (%) (Auto) 0.1, Neutrophils # ( Auto) 18.44, Lymphocytes # (Auto) 0.30, Monocytes # (Auto) 0.68, Eosinophils # ( Auto) 0.00, Basophils # (Auto) 0.01 03/24/17 05:29 Test 03/24/17 05:29 03/24/17 06:37 White Blood Count 19.56 K/uL (4.8-10.8) Red Blood Count 4.07 M/uL (4.7-6.1) Hemoglobin 13.6 g/dL (14.0-18.0) Hematocrit 41.3 % (42-52) Mean Corpuscular Volume 101.5 fL (80-100) Mean Corpuscular Hemoglobin 33.4 pg (25-34) Mean Corpuscular Hemoglobin Concent 32.9 g/dl (32-36) Platelet Count 230 K/uL (130-400) Mean Platelet Volume 11.0 fL (7.4-10.4) Neutrophils (%) (Auto) 94.2 % Lymphocytes (%) (Auto) 1.5 % Monocytes (%) (Auto) 3.5 % Eosinophils (%) (Auto) 0.0 % Basophils (%) (Auto) 0.1 % Neutrophils # (Auto) 18.44 K/uL (1.4-6.5) Lymphocytes # (Auto) 0.30 K/uL (1.2-3.4) Monocytes # (Auto) 0.68 K/uL (0.11-0.59) Eosinophils # (Auto) 0.00 K/uL (0-0.5) Basophils # (Auto) 0.01 K/uL (0-0.2) RDW Standard Deviation 55.6 fL (36.4-46.3) RDW Coefficient of Variation 15.3 % (11.5-14.5) Immature Granulocyte % (Auto) 0.7 % Immature Granulocyte # (Auto) 0.13 K/uL (0.00-0.02) Anion Gap 5.0 mmol/L (3-11) Est Creatinine Clear Calc Drug Dose 88.8 ml/min Estimated GFR () 108.7 Estimated GFR (Non- 93.8 BUN/Creatinine Ratio 20.5 (10-20) Calcium Level 8.5 mg/dl (8.5-10.1) Bedside Glucose 168 mg/dl (70-99) Assessment and Plan 62 yo M with PMHx of advanced COPD, bronchietasis, chronic tobacco smoker of 0.5 -1 ppd x 45 years, and sensorineural hearing loss, 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 Shortness of breath / PNA: Hx COPD. Back on 30Aug, was placed on levaquin 500 mg daily x7d and prednisone taper x 8d. No reported sx improvement. 13Sep CTA noted no evidence of PE but a right base infiltrate concerning for PNA. Pt was started on zosyn and vancomycin empirically. Cultures pending. Pulmonary consult placed, appreciate their recs. Ongoing pulmonary toilet with duonebs, solumedrol, Spiriva,and daliresp. Worsening leukocytosis from 14->15Sep. - 13Sep MRSA nasal swab negative [ ] 13Sep BCx x 2 pending, but no growth as of 15Sep. [ ] Sputum cultures cancelled for second time. Will inquire on rounds. - Pt has a hx of EVE and may benefit from CPAP at night. - Pt follows with Evangelina Valero as an outpatient in the pulmonary office, will consult Pulmonary team for further recommendations. Bilateral supraclavicular region lymphadenopathy: Per pt, has been present for about six months, worse in past month (prior reports stated in past week). No prior PCM workup per pt. Says not painful and doesn't limit his speaking, swallowing, neck ROM, or cause impact on ADL's. Not tender on exam. Doesnt look clearly infectious. Soft tissue u/s did not show any focal masses or fluid pockets. Source remains unclear at this point. Tachycardia: Noted on admit. EKG on 13Sep was sinus tachy 102 without other acute changes. TnI x 3 negative. CTA did not show evidence of PE. Gave IVF without much change. May be due to fighting ongoing pulm infection. - Patient does not take any oral hypertensive agents as an outpatient, likely due to his shortness of breath at this time. Will consider Lopressor IV when necessary for tachycardia greater than 120 bpm. PMH Bipolar disorder: - Patient takes Trintellix 10 mg daily, will ask him to bring supply from home as this is not available as an inpatient - Continue olanzapine 15 mg daily - Follows with Dr. Veras at [id number], and was seen in office 1 month ago. PMH Insomnia: - Continue doxepin 150 mg QHS, mirtazapine 30 mg QHS, and temazepam 15 mg QHS prn ? Constipation: - Ordered dulcolax tabs, MiraLAX, and milk of magnesia when necessary PMH Hyperlipidemia: - Continue Crestor 20 mg daily Disposition: Patient from home, lives alone. DVT prophylaxis: Heparin, teds, SCDs CODE STATUS: Full code Will discuss all the above on attending rounds this morning. [facility], PGY1 [employer] Tracking Resident Involvement: Resident Care Provided Care Provided: Adult Hospital Medicine (inpt rounds) History Resident Physician Supervision Note: I was present with Dr. Whipple during the history and exam. I discussed the case with the resident and agree with the findings and plan as documented in the note. Any exceptions or clarifications are listed here. Pt seen and examined at bedside. Reports his shortness of breath is marginally improved from yesterday, despite worsening overnight. His SOB appears worse while sitting up and is somewhat better while laying flat. Cough is more frequent and productive today, and was able to produce sputum sample. Tolerated IVF 1L NS overnight well. Reports no fever, lightheadedness, chest pain. General Appearance: WD/WN, no apparent distress Neck: non-tender, full range of motion, supple, other (persistent, b/l supraclavicular swelling) Respiratory: chest non-tender, no respiratory distress, decreased breath sounds (improved from previous, but still diffuse), wheezing (scattered insp/ exp wheezes) Cardiovascular: normal peripheral pulses, regular rate, rhythm, no edema, no murmur Assessment/Plan 62 y/o male h/o COPD, ~40pk year smoking hx, AFB p/w worsening SOB/cough SOB/Cough - likely COPD exacerbation failing outpatient therapy - pulmonology aware, input appreciated - vanc/zosyn, solumedrol, continue inhaler regimen ( minus breo, as is on solumedrol) - awaiting clinical improvement, MRSA negative but without considerable improvement, will d/c vanc in AM B/L Neck swelling - US complete, no apparent cause for subjective swelling on US Tachycardia - increased HR potentially 2/2 respiratory demand v. pulmonary HTN v. underlying cardiac pathology - on telemetry, no response to fluid bolus, may be 2/2 to exacerbation, will monitor Constipation - bowel regimen Bipolar - continue outpatient regimen HLD - continue crestor
[2017-03-24 06:38] LABS: HEMATOCRIT 41.3 % (42-52); MEAN CELL VOLUME 101.5 fL (80-100); MEAN CORPUSCULAR HEMOGLOBIN 33.4 pg (25-34); MEAN CORPUSCULAR HGB CONC 32.9 g/dl (32-36); PLATELET COUNT 230 K/uL (130-400); RED BLOOD COUNT 4.07 M/uL (4.7-6.1); WHITE BLOOD COUNT 19.56 K/uL (4.8-10.8)
[2017-03-24 06:39] LABS: BASO % 0.1 %; BASO ABS # 0.01 K/uL (0-0.2); COMPLETE YES; IG% 0.7 %; LYMPH % 1.5 %; MONO % 3.5 %; NEUT % 94.2 %
[2017-03-24 06:45] LABS: BUN/CREATININE RATIO 20.5 (10-20); CALCIUM 8.5 mg/dl (8.5-10.1); CREATININE 0.87 mg/dl (0.60-1.40); POTASSIUM 4.4 mmol/L (3.5-5.1)
[2017-03-24] MEDS: OLANZAPINE 10 MG TAB PO SCH (07:35)
[2017-03-24] MEDS: BISACODYL 5 MG TABEC PO SCH (07:35)
[2017-03-24] MEDS: ROSUVASTATIN CALCIUM 20 MG TAB PO SCH (07:36)
[2017-03-24] MEDS: TIOTROPIUM BROMIDE 5 PUFF/90 MCG INH INH SCH (07:36)
[2017-03-24] MEDS: ROFLUMILAST 500 MCG TAB PO SCH (07:37)
[2017-03-24] MEDS: NICOTINE 14 MG/24 HR TDSY TD SCH (07:38)
[2017-03-24] MEDS: INSULIN ASPART 100 UNITS/ML 3 ML PEN SC SCH ×4 (07:44→20:40)
[2017-03-24] MEDS: TRINTELLIX: ORDER AWAITING ACTION SCH ×2 (08:00→16:00)
[2017-03-24] MEDS: ALBUT/IPRATROP 3MG/0.5MG NEB 3 ML VIAL INH SCH ×3 (11:13→19:19)
--- NOTE | 2017-03-24 11:33 | Pulmonology Progress Note ---
Pulmonary Progress Note Date of Service Mar 24, 2017. Attending Dr. Rivas Subjective Patient seen and examined at bedside. He states that he is feeling short of breath and wheezing a lot. Still having a cough. Objective VS: reviewed Gen: AAOx3, NAD, speaking in full sentences, calm but appears is tachypnea CVS: S1, S2, tachycardic Abd: soft/NT/ND BS+ Ext: no edema bilaterally, no cyanosis, no clubbing Labs reviewed WBC 10--> 19 Hgb 15-->13.6 Sputum culture 03/24--pending, AFB--pending Blood culture 03/22/2017--no growth to date Imaging viewed and reviewed by me Bilateral supraclavicular U/S 03/23/2017 FINDINGS: No masses or fluid collections within the supraclavicular locations. No lymphadenopathy. IMPRESSION: No sonographic abnormality within the bilateral supraclavicular locations. Medications reviewed Assessment & Plan Assessment and Plan COPD exacerbation EVE Bronchiectasis Right lower lobe pneumonia Tobacco use disorder At the current time I would continue patient patient has severe COPD which is most likely exacerbated from right lower lobe pneumonia and failing outpatient empiric antibiotic therapy. blood cultures are negative to date, sputum cultures are pending. He still has persisent wheezes and tachypnea--requested stat nebulizer treatment Continue supplemental oxygen to maintain SaO2 above 92%. Patient does have history of EVE so consider CPAP at night. If patient has worsened work of breathing can give BIPAP. Continue with Duonebs q6h, Solumedrol 60 mg q8h, Spiriva and Daliresp. Continue with aggressive chest PT, flutter valve Continue with nicotine patch Data Medications: Current Inpatient Medications Medications (Trade) Dose Ordered Sig/Evelyn Route Start Time Stop Time Status Last Admin Dose Admin Enoxaparin Sodium (Lovenox Inj) 40 mg Q24H SC 03/22/17 21:00 04/21/17 20:59 03/23/17 20:41 40 MG Acetaminophen (Tylenol Tab) 650 mg Q4H PRN PO 03/22/17 17:30 04/21/17 17:29 Magnesium Hydroxide (Milk Of Magnesia Susp) 30 ml Q12H PRN PO 03/22/17 17:30 04/21/17 17:29 Ondansetron HCl (Zofran Inj) 4 mg Q6H PRN IV 03/22/17 17:30 04/21/17 17:29 Polyethylene (Miralax Powder Packet) 17 gm DAILY PRN PO 03/22/17 17:30 04/21/17 17:29 Albuterol/ Ipratropium (Duoneb) 3 ml QIDR INH 03/22/17 20:00 04/21/17 19:59 03/24/17 11:13 3 ML Methylprednisolone Sodium Succinate 60 mg/Syringe 0.96 ml @ 1.5 mls/min Q8H IV 03/22/17 18:30 04/21/17 18:29 03/24/17 10:50 1.5 MLS/MIN Nicotine (Nicoderm Cq 14MG Patch) 1 patch QAM TD 03/22/17 17:30 04/21/17 17:29 03/24/17 07:38 1 PATCH Miscellaneous (Remove Nicoderm Patch) 1 ea HS N/A 03/22/17 21:00 04/21/17 20:59 03/23/17 21:00 1 EA Guaifenesin (Mucinex Contr Rel Tab) 600 mg Q12 PO 03/22/17 21:00 04/21/17 20:59 Future Hold 03/23/17 07:29 600 MG Roflumilast (Daliresp Tab) 500 mcg DAILY PO 03/23/17 09:00 04/22/17 08:59 03/24/17 07:37 500 MCG Rosuvastatin Calcium (Crestor Tab) 20 mg QAM PO 03/23/17 09:00 04/22/17 08:59 03/24/17 07:36 20 MG Temazepam (Restoril Cap) 15 mg HS PRN PO 03/22/17 17:30 04/21/17 17:29 Tiotropium [place] (Spiriva Handihaler Inhaler) 1 puff DAILY INH 03/23/17 09:00 04/22/17 08:59 03/24/17 07:36 1 PUFF Miscellaneous Information (Order Awaiting Action) 1 ea QS N/A 03/23/17 00:00 04/22/17 00:00 Mirtazapine (Remeron Tab) 30 mg HS PO 03/22/17 21:00 04/21/17 20:59 03/23/17 20:40 30 MG Olanzapine (Zyprexa Tab) 15 mg DAILY PO 03/23/17 09:00 04/22/17 08:59 03/24/17 07:35 15 MG Doxepin HCl (Sinequan Cap) 150 mg HS PO 03/22/17 21:00 04/21/17 20:59 03/23/17 20:40 150 MG Miscellaneous Information (Order Awaiting Action) 1 ea QS N/A 03/23/17 00:00 04/22/17 00:00 Bisacodyl (Dulcolax Tab) 5 mg DAILY PO 03/22/17 18:15 04/21/17 18:14 03/24/17 07:35 5 MG Insulin Aspart (novoLOG ASPART) SLIDING SCALE G... ACHS SC 03/22/17 21:00 04/21/17 20:59 03/24/17 07:44 3 UNITS Metoprolol Tartrate (Lopressor Iv) 5 mg Q4 PRN IV 03/22/17 18:30 04/21/17 18:29 Vancomycin HCl (Consult) 1 ea UD PRN N/A 03/22/17 18:45 04/21/17 18:44 Piperacillin Sod/ Tazobactam Sod (Consult) 1 ea UD PRN N/A 03/22/17 18:45 04/21/17 18:44 Ioversol (Optiray 320) 100 ml UD PRN IV 03/22/17 20:00 03/26/17 19:59 Piperacillin Sod/ Tazobactam Sod 3.375 gm/Dextrose 115 ml @ 28.75 mls/ hr Q8H IV 03/22/17 22:00 03/24/17 21:59 03/24/17 05:41 28.75 MLS/HR Vancomycin HCl 1250 mg/Sodium Chloride 275 ml @ 125 mls/hr Q12H IV 03/23/17 06:00 03/25/17 05:59 03/24/17 05:41 125 MLS/HR Vital Signs: Date Time Temp Pulse Resp B/P (MAP) Pulse Ox O2 Delivery O2 Flow Rate FiO2 03/24/17 11:13 104 20 93 Nasal Cannula 2.0 03/24/17 08:07 36.8 105 18 118/82 (94) 93 Nasal Cannula 2.0 03/24/17 08:00 Nasal Cannula 2.0 03/24/17 07:03 97 18 94 Nasal Cannula 2.0 03/24/17 04:04 36.5 100 18 121/74 (90) 93 Nasal Cannula 2.0 03/24/17 04:00 Nasal Cannula 2.0 03/24/17 00:19 36.5 108 18 110/80 (90) 92 Nasal Cannula 2.0 03/24/17 00:00 Nasal Cannula 2.0 03/23/17 20:00 Nasal Cannula 2.0 03/23/17 19:25 98 18 96 Nasal Cannula 2.0 03/23/17 18:56 36.8 104 24 123/92 (102) 92 Nasal Cannula 2.0 03/23/17 16:00 Nasal Cannula 2.0 03/23/17 15:25 105 18 93 Nasal Cannula 2.0 03/23/17 15:14 36.6 100 24 119/72 (88) 92 Nasal Cannula 2.0 03/23/17 11:47 36.7 113 20 110/80 (90) 93 Laboratory Results: Last 24 Hours Test 03/23/17 11:32 03/23/17 15:55 03/23/17 20:11 03/24/17 05:29 Bedside Glucose 186 mg/dl 167 mg/dl 223 mg/dl White Blood Count 19.56 K/uL Red Blood Count 4.07 M/uL Hemoglobin 13.6 g/dL Hematocrit 41.3 % Mean Corpuscular Volume 101.5 fL Mean Corpuscular Hemoglobin 33.4 pg Mean Corpuscular Hemoglobin Concent 32.9 g/dl Platelet Count 230 K/uL Mean Platelet Volume 11.0 fL Neutrophils (%) (Auto) 94.2 % Lymphocytes (%) (Auto) 1.5 % Monocytes (%) (Auto) 3.5 % Eosinophils (%) (Auto) 0.0 % Basophils (%) (Auto) 0.1 % Neutrophils # (Auto) 18.44 K/uL Lymphocytes # (Auto) 0.30 K/uL Monocytes # (Auto) 0.68 K/uL Eosinophils # (Auto) 0.00 K/uL Basophils # (Auto) 0.01 K/uL RDW Standard Deviation 55.6 fL RDW Coefficient of Variation 15.3 % Immature Granulocyte % (Auto) 0.7 % Immature Granulocyte # (Auto) 0.13 K/uL Sodium Level 142 mmol/L Potassium Level 4.4 mmol/L Chloride Level 110 mmol/L Carbon Dioxide Level 27 mmol/L Anion Gap 5.0 mmol/L Blood Urea Nitrogen 18 mg/dl Creatinine 0.87 mg/dl Est Creatinine Clear Calc Drug Dose 88.8 ml/min Estimated GFR () 108.7 Estimated GFR (Non- 93.8 BUN/Creatinine Ratio 20.5 Random Glucose 188 mg/dl Calcium Level 8.5 mg/dl Test 03/24/17 06:37 Bedside Glucose 168 mg/dl
--- NOTE | 2017-03-24 16:21 | DIAGNOSTIC IMAGING REPORT ---
CHEST 2 VIEWS ROUTINE CLINICAL HISTORY: Worsening shortness of breath COMPARISON STUDY: 03/22/2017 FINDINGS: The cardiac and mediastinal contours remain stable. There is stable interstitial thickening. There is no failure. There is no lobar consolidation. There is minimal blunting of the right posterior costophrenic angle suggesting a trace effusion. A linear opacities the right lung base is felt to be atelectatic.[ IMPRESSION: Emphysema and stable interstitial thickening. No acute parenchymal consolidation. Blunting of the right posterior costophrenic angle. A trace effusion cannot be excluded. Electronically signed by: Huang Ellison M.D. 03/24/2017 4:19 PM Dictated Date/Time: 03/24/2017 4:17 PM
--- NOTE | 2017-03-24 16:26 | Medical Student: [facility] ---
Med Student Progress Note Date of Service Mar 24, 2017. Subjective Pt evaluation today including: conversation w/ patient, physical exam, chart review, lab review, review of studies, review of inpatient medication list Pain: none PO Intake: normal Voiding: no voiding problems This is 62 year-old male with history of COPD, bronchiectasis, pulmonary emphysema, hyperlipidemia, and bipolar disorder presented on 03/22/17 with worsening SOB for 2 weeks with cough and yellow sputum. Upon admission, he was also found to have tachycardia. Of note, patient was seen in office on 03/08 and was put on Levaquin and prednisone taper. He also complains of neck swelling which he noticed a few months ago but get worse for the past week. Yesterday, he had an U/S soft tissue for the neck swelling problem which shows no abnormalities. Today, he says he feels the same. Still some difficulty breathing sitting in bed. Denies fever, N/V, chest pain, abdominal pain, and urination problems. He does not have BM yesterday. Review of Systems Constitutional: No fever Respiratory: + shortness of breath, + dyspnea at rest Cardiac: No chest pain Abdomen: No pain Male : No dysuria Objective Vital Signs Date Time Temp Pulse Resp B/P (MAP) Pulse Ox O2 Delivery O2 Flow Rate FiO2 03/24/17 12:16 36.6 112 18 103/69 (80) 92 Nasal Cannula 03/24/17 12:00 Nasal Cannula 2.0 03/24/17 11:13 104 20 93 Nasal Cannula 2.0 03/24/17 08:07 36.8 105 18 118/82 (94) 93 Nasal Cannula 2.0 03/24/17 08:00 Nasal Cannula 2.0 03/24/17 07:03 97 18 94 Nasal Cannula 2.0 03/24/17 04:04 36.5 100 18 121/74 (90) 93 Nasal Cannula 2.0 03/24/17 04:00 Nasal Cannula 2.0 03/24/17 00:19 36.5 108 18 110/80 (90) 92 Nasal Cannula 2.0 03/24/17 00:00 Nasal Cannula 2.0 03/23/17 20:00 Nasal Cannula 2.0 03/23/17 19:25 98 18 96 Nasal Cannula 2.0 03/23/17 18:56 36.8 104 24 123/92 (102) 92 Nasal Cannula 2.0 03/23/17 16:00 Nasal Cannula 2.0 03/23/17 15:25 105 18 93 Nasal Cannula 2.0 03/23/17 15:14 36.6 100 24 119/72 (88) 92 Nasal Cannula 2.0 Physical Exam General Appearance: no apparent distress Eyes: bilateral eyes normal inspection ENT: hearing grossly normal Neck: + pertinent finding (Supraclavicular mild swelling, no erythema.) Respiratory/Chest: + decreased breath sounds, + crackles (coarse ), + rales, + pertinent finding (on 2L NC) Cardiovascular: no edema, no murmur, + tachycardia Abdomen: normal bowel sounds, soft Extremities: no pedal edema Neurologic/Psychiatric: alert, normal mood/affect Laboratory Results Last 24 Hours Test 03/23/17 15:55 03/23/17 20:11 03/24/17 05:29 03/24/17 06:37 Bedside Glucose 167 mg/dl 223 mg/dl 168 mg/dl White Blood Count 19.56 K/uL Red Blood Count 4.07 M/uL Hemoglobin 13.6 g/dL Hematocrit 41.3 % Mean Corpuscular Volume 101.5 fL Mean Corpuscular Hemoglobin 33.4 pg Mean Corpuscular Hemoglobin Concent 32.9 g/dl Platelet Count 230 K/uL Mean Platelet Volume 11.0 fL Neutrophils (%) (Auto) 94.2 % Lymphocytes (%) (Auto) 1.5 % Monocytes (%) (Auto) 3.5 % Eosinophils (%) (Auto) 0.0 % Basophils (%) (Auto) 0.1 % Neutrophils # (Auto) 18.44 K/uL Lymphocytes # (Auto) 0.30 K/uL Monocytes # (Auto) 0.68 K/uL Eosinophils # (Auto) 0.00 K/uL Basophils # (Auto) 0.01 K/uL RDW Standard Deviation 55.6 fL RDW Coefficient of Variation 15.3 % Immature Granulocyte % (Auto) 0.7 % Immature Granulocyte # (Auto) 0.13 K/uL Sodium Level 142 mmol/L Potassium Level 4.4 mmol/L Chloride Level 110 mmol/L Carbon Dioxide Level 27 mmol/L Anion Gap 5.0 mmol/L Blood Urea Nitrogen 18 mg/dl Creatinine 0.87 mg/dl Est Creatinine Clear Calc Drug Dose 88.8 ml/min Estimated GFR () 108.7 Estimated GFR (Non- 93.8 BUN/Creatinine Ratio 20.5 Random Glucose 188 mg/dl Calcium Level 8.5 mg/dl Medications Current Inpatient Medications Medications (Trade) Dose Ordered Sig/Evelyn Route Start Time Stop Time Status Last Admin Dose Admin Enoxaparin Sodium (Lovenox Inj) 40 mg Q24H SC 03/22/17 21:00 04/21/17 20:59 03/23/17 20:41 40 MG Acetaminophen (Tylenol Tab) 650 mg Q4H PRN PO 03/22/17 17:30 04/21/17 17:29 Magnesium Hydroxide (Milk Of Magnesia Susp) 30 ml Q12H PRN PO 03/22/17 17:30 04/21/17 17:29 Ondansetron HCl (Zofran Inj) 4 mg Q6H PRN IV 03/22/17 17:30 04/21/17 17:29 Polyethylene (Miralax Powder Packet) 17 gm DAILY PRN PO 03/22/17 17:30 04/21/17 17:29 Albuterol/ Ipratropium (Duoneb) 3 ml QIDR INH 03/22/17 20:00 04/21/17 19:59 03/24/17 11:13 3 ML Methylprednisolone Sodium Succinate 60 mg/Syringe 0.96 ml @ 1.5 mls/min Q8H IV 03/22/17 18:30 04/21/17 18:29 03/24/17 10:50 1.5 MLS/MIN Nicotine (Nicoderm Cq 14MG Patch) 1 patch QAM TD 03/22/17 17:30 04/21/17 17:29 03/24/17 07:38 1 PATCH Miscellaneous (Remove Nicoderm Patch) 1 ea HS N/A 03/22/17 21:00 04/21/17 20:59 03/23/17 21:00 1 EA Guaifenesin (Mucinex Contr Rel Tab) 600 mg Q12 PO 03/22/17 21:00 04/21/17 20:59 Future Hold 03/23/17 07:29 600 MG Roflumilast (Daliresp Tab) 500 mcg DAILY PO 03/23/17 09:00 04/22/17 08:59 03/24/17 07:37 500 MCG Rosuvastatin Calcium (Crestor Tab) 20 mg QAM PO 03/23/17 09:00 04/22/17 08:59 03/24/17 07:36 20 MG Temazepam (Restoril Cap) 15 mg HS PRN PO 03/22/17 17:30 04/21/17 17:29 Tiotropium [place] (Spiriva Handihaler Inhaler) 1 puff DAILY INH 03/23/17 09:00 04/22/17 08:59 03/24/17 07:36 1 PUFF Miscellaneous Information (Order Awaiting Action) 1 ea QS N/A 03/23/17 00:00 04/22/17 00:00 Mirtazapine (Remeron Tab) 30 mg HS PO 03/22/17 21:00 04/21/17 20:59 03/23/17 20:40 30 MG Olanzapine (Zyprexa Tab) 15 mg DAILY PO 03/23/17 09:00 04/22/17 08:59 03/24/17 07:35 15 MG Doxepin HCl (Sinequan Cap) 150 mg HS PO 03/22/17 21:00 04/21/17 20:59 03/23/17 20:40 150 MG Miscellaneous Information (Order Awaiting Action) 1 ea QS N/A 03/23/17 00:00 04/22/17 00:00 Bisacodyl (Dulcolax Tab) 5 mg DAILY PO 03/22/17 18:15 04/21/17 18:14 03/24/17 07:35 5 MG Insulin Aspart (novoLOG ASPART) SLIDING SCALE G... ACHS SC 03/22/17 21:00 04/21/17 20:59 03/24/17 12:59 5 UNITS Metoprolol Tartrate (Lopressor Iv) 5 mg Q4 PRN IV 03/22/17 18:30 04/21/17 18:29 Vancomycin HCl (Consult) 1 ea UD PRN N/A 03/22/17 18:45 04/21/17 18:44 Piperacillin Sod/ Tazobactam Sod (Consult) 1 ea UD PRN N/A 03/22/17 18:45 04/21/17 18:44 Ioversol (Optiray 320) 100 ml UD PRN IV 03/22/17 20:00 03/26/17 19:59 Piperacillin Sod/ Tazobactam Sod 3.375 gm/Dextrose 115 ml @ 28.75 mls/ hr Q8H IV 03/22/17 22:00 03/24/17 21:59 03/24/17 05:41 28.75 MLS/HR Vancomycin HCl 1250 mg/Sodium Chloride 275 ml @ 125 mls/hr Q12H IV 03/23/17 06:00 03/25/17 05:59 03/24/17 05:41 125 MLS/HR Assessment and Plan Assessment and Plan: This is 62 year-old male with history of COPD, bronchiectasis, pulmonary emphysema, hyperlipidemia, and bipolar disorder presented on 03/22/17 with worsening SOB for 2 weeks with cough and yellow sputum. Upon admission, he was also found to have tachycardia. Patient also complains of neck swelling recently get worse. SOB Ddx: COPD exacerbation, pulmonary hypertension 2/2 chronic lung disease, pneumonia, PA, PE. CXR upon admission (03/22) shows no focal infiltrates and patient came in with no fever, chills and WBC was in normal range. This makes pneumonia unlikely however need to rule this out with blood culture and sputum culture. PA is possible however patient does not have chest pain and troponin (< 0.015) is normal. EKG does not show ischemia. PE is ruled out with CTA (03/22). COPD exacerbation or pulmonary hypertension 2/2 chronic lung disease are most probable cause of SOB. - [employer] consulted - COPD exacerbation - recommended continuing duoneb, solumedrol, spiriva, daliresp, chest PT, and flutter valve; consider cpap for patient at night - Pneumonia? Blood culture - no growth today; sputum culture pending. Meanwhile , continue vanco and zosyn. Tachycardia Ddx: 2/2 to SOB, heart condition, or PE. PE is ruled out with CTA (03/22). Heart condition such as heart strain 2/2 pulmonary htn due to chronic lung disease is possible. However, it is not likely in this patient since he does not have any symptoms of chest pain/discomfort or edema, normal ekg, normal troponin. - Continue monitor - Echo? Supraventricular swelling Ddx: Fluid shift 2/2 pulmonary htn, infection, superior vena cava obstruction, lymphatic obstruction. Lymphatic obstruction is not likely since lymphatic obstruction tend to occur unilaterally with lymphedema in both leg and arm. Superior vena cava obstruction is possible if patient develops a mass that compresses the vena cava. This patient has a unchanged CXR with existing chronic findings, no mass found and no signs of facial plethora or facial/neck veins swelling. With hx of extensive chronic lung disease, pulmonary htn is possible; however this patient does not seem to have edema with no JVD and no pitting edema. - U/S 03/23 shows no mass or fluid collection in the supraventricular areas. - Continue to watch. Bipolar Disorder - Continue home meds mirtazapine and olanzapine DVT prophylaxis - Lovenox injection. Continued [facility] stay due to: abnormal vital signs
[2017-03-24] MEDS ORDERED: VANCOMYCIN TROUGH ONE (17:30)
--- NOTE | 2017-03-24 19:34 | Pharmacy Progress Note ---
Pharmacy Abx Dose Progress Nt Date of Service Mar 24, 2017. Pharmacy Dosing Scope The patient is currently receiving the following antimicrobial agents per Pharmacy consult: Vancomycin 1,250 mg IV every 12 hours & Zosyn 3.375g IV Q8hrs extended infusion dosing {each dose given over 4hrs} Objective Height (Feet): 5 Height (Inches): 6.00 Weight (Kilograms): 78.100 Vital Signs (Past 12Hrs) Vital Signs Past 12 Hours Date Time Temp Pulse Resp B/P (MAP) Pulse Ox O2 Delivery O2 Flow Rate FiO2 03/24/17 19:19 94 18 95 Nasal Cannula 2.0 03/24/17 18:39 36.7 104 18 116/92 (100) 94 Nasal Cannula 2.0 03/24/17 16:00 Nasal Cannula 2.0 03/24/17 15:09 104 18 95 Nasal Cannula 2.0 03/24/17 14:56 36.8 109 20 131/80 (97) 95 Nasal Cannula 2.0 03/24/17 12:16 36.6 112 18 103/69 (80) 92 Nasal Cannula 03/24/17 12:00 Nasal Cannula 2.0 03/24/17 11:13 104 20 93 Nasal Cannula 2.0 03/24/17 08:07 36.8 105 18 118/82 (94) 93 Nasal Cannula 2.0 03/24/17 08:00 Nasal Cannula 2.0 Lab Results (24Hrs) Laboratory Tests (24 Hours) Test 03/24/17 05:29 White Blood Count 19.56 K/uL (4.8-10.8) H Red Blood Count 4.07 M/uL (4.7-6.1) L Hemoglobin 13.6 g/dL (14.0-18.0) L Hematocrit 41.3 % (42-52) L Mean Corpuscular Volume 101.5 fL (80-100) H Mean Corpuscular Hemoglobin 33.4 pg (25-34) Mean Corpuscular Hemoglobin Concent 32.9 g/dl (32-36) Platelet Count 230 K/uL (130-400) Mean Platelet Volume 11.0 fL (7.4-10.4) H Neutrophils (%) (Auto) 94.2 % Lymphocytes (%) (Auto) 1.5 % Monocytes (%) (Auto) 3.5 % Eosinophils (%) (Auto) 0.0 % Basophils (%) (Auto) 0.1 % Neutrophils # (Auto) 18.44 K/uL (1.4-6.5) H Lymphocytes # (Auto) 0.30 K/uL (1.2-3.4) L Monocytes # (Auto) 0.68 K/uL (0.11-0.59) H Eosinophils # (Auto) 0.00 K/uL (0-0.5) Basophils # (Auto) 0.01 K/uL (0-0.2) Micro Results Date/Time Source Procedure Growth Status 03/22/17 17:54 Blood Blood Culture - Preliminary NO GROWTH TO DATE. Resulted 03/22/17 17:47 Blood Blood Culture - Preliminary NO GROWTH TO DATE. Resulted 03/22/17 22:45 Nasal MRSA DNA Surveillance Screen - Final Specimen Negative for MRSA by DNA Probe Complete 03/24/17 07:30 Sputum Expectorated Sputum Gram Stain Pending Ordered 03/24/17 07:30 Sputum Expectorated Sputum Sputum Culture Pending Ordered 03/24/17 07:15 Sputum Expectorated Sputum Acid Fast Stain Pending Received 03/24/17 07:15 Sputum Expectorated Sputum Mycobacterial Culture Pending Received Risk Factors for Resistance * Antimicrobial use within the last 90 days: Levaquin x 7 days Assessment & Plan Assessment 62 year old male receiving Vancomycin + Zosyn for empiric treatment of PNA Day # 3/7 of antimicrobial therapy Plan Vancomycin IV * Trough level of 11.8 mcg/mL is subtherapeutic * Change to 1250 mg IV every 10 hours * Goal trough level for PNA : 15 to 20 mcg/mL * Trough level ordered for: 03/26/17 @ 1000 * Less than traditional dose and/or extended dosing interval selected due to likelihood of drug accumulation Piperacillin/tazobactam * Continue 3.375 g IV extended infusion every 8 hours for CrCl greater than 20 mL/min Pharmacy will continue to follow and will adjust dose/frequency as necessary. Thank you.
[2017-03-24] MEDS: DOXEPIN HCL 50 MG CAP PO SCH (20:37)
[2017-03-24] MEDS: MIRTAZAPINE TAB 15 MG TAB PO SCH (20:37)
[2017-03-24] MEDS: ENOXAPARIN 40 MG/0.4 ML SYR SC SCH (20:39)
[2017-03-25] VITALS (13 sets, daily range): BP systolic 115–124; BP diastolic 74–86; PULSE 90–108; TEMP 36.5–36.8; O2SAT 93–97
[2017-03-25] MEDS: METHYLPREDNISOLONE IV 60 MG in SYRINGE 0 ML IV SCH ×2 (02:18→09:22)
[2017-03-25] MEDS: VANCOMYCIN INJ 1,250 MG in SODIUM CHLORIDE 0.9% 250ML 250 ML IV SCH ×2 (04:19→14:11)
[2017-03-25 05:48] LABS: COMPLETE YES; HEMATOCRIT 40.9 % (42-52); IG% 0.7 %; LYMPH % 3.4 %; LYMPH ABS # 0.55 K/uL (1.2-3.4); MEAN CELL VOLUME 103.8 fL (80-100); MEAN CORPUSCULAR HGB CONC 31.8 g/dl (32-36); MEAN PLATELET VOLUME 10.5 fL (7.4-10.4); MONO % 3.2 %; NEUT % 92.7 %; PLATELET COUNT 219 K/uL (130-400); RED BLOOD COUNT 3.94 M/uL (4.7-6.1); WHITE BLOOD COUNT 16.14 K/uL (4.8-10.8)
[2017-03-25 06:13] LABS: CREATININE 0.82 mg/dl (0.60-1.40)
[2017-03-25] MEDS: PIPERACILL/TAZOBAC IV 3.375 GM in DEXTROSE 5% 100ML IV SCH ×3 (06:55→22:06)
[2017-03-25] MEDS: INSULIN ASPART 100 UNITS/ML 3 ML PEN SC SCH ×4 (07:00→22:06)
[2017-03-25] MEDS: ALBUT/IPRATROP 3MG/0.5MG NEB 3 ML VIAL INH SCH ×5 (07:07→19:06)
[2017-03-25] MEDS: TRINTELLIX: ORDER AWAITING ACTION SCH ×3 (08:00→16:00)
[2017-03-25] MEDS: BISACODYL 5 MG TABEC PO SCH (08:51)
[2017-03-25] MEDS: ROSUVASTATIN CALCIUM 20 MG TAB PO SCH (08:51)
[2017-03-25] MEDS: TIOTROPIUM BROMIDE 5 PUFF/90 MCG INH INH SCH (08:51)
[2017-03-25] MEDS: OLANZAPINE 10 MG TAB PO SCH (08:51)
[2017-03-25] MEDS: ROFLUMILAST 500 MCG TAB PO SCH (08:51)
[2017-03-25] MEDS: NICOTINE 14 MG/24 HR TDSY TD SCH (08:53)
[2017-03-25] MEDS ORDERED: ALBUT/IPRATROP 3MG/0.5MG NEB 3 ML VIAL INH SCH (12:00)
[2017-03-25] MEDS ORDERED: PERFLUTREN LIPID MICROSPHERE (DEFINITY) IV ONE (13:56)
--- NOTE | 2017-03-25 14:50 | ECHOCARDIOGRAM REPORT ---
*NOTICE TO RECEIVING LIBERTARIAN AGENCY This information is strictly Confidential and protected under [place] law. [place] law prohibits you from making any further disclosure of this information unless further disclosure is expressly permitted by the written consent of the person to whom it pertains or is authorized by law. A general authorization for the release of medical or other information is not sufficient for this purpose. Hospital accepts no responsibility if the information is made available to any other person, INCLUDING THE PATIENT. Interpretation Summary * Name: CHRISSY NEGRON Study Date: 03/25/2017 01:35 PM BP: 124/80 mmHg * Patient Location: [id number].[id number]\E202\[id number]\1 HR: 106 * : 1955 (M/d/yyyy) Gender: Male Height: 66 in * Age: 62 yrs Ethnicity: HI Weight: 172 lb * Ordering Physician: Maricarmen Amaya * Referring Physician: Miguel Hammer * Performed By: Vanda Damian * * Reason For Study: COPD EXACERBATION * BSA: 1.9 m2 * -- Conclusions -- * The left ventricle is normal in size. * There is mild concentric left ventricular hypertrophy. * Left ventricular systolic function is normal. * Ejection Fraction = 60-65%. * The left ventricular wall motion is normal. * The right ventricle is normal in size and function. * The right ventricular systolic function is normal as assessed by tricuspid annular plane systolic excursion (TAPSE) (normal >1.5 cm). * Calcified non-coronary cusp * No significant aortic stenosis * Grade I diastolic dysfunction, (abnormal relaxation pattern). * Normal LA pressures Procedure Details * A complete two-dimensional transthoracic echocardiogram was performed (2D, M-mode, Doppler and color flow Doppler). * The study was technically difficult. * There were technical limitations due to patient'sPoor acoustic windows secondary to severe lung disease. * A contrast injection of Definity was performed to improve assessment of LV function. * Contrast was injected into an intravenous site in the right arm. * One vial of Definity ultrasound contrast was diluted in normal saline to a total volume of 10 ml. A total of '3' ml of solution was administered during imaging. * Lot # [id number] of Definity utilized for procedure. * Expiration date 04/26. Left Ventricle * The left ventricle is normal in size. * There is mild concentric left ventricular hypertrophy. * Ejection Fraction = 60-65%. * Left ventricular systolic function is normal. * The left ventricular wall motion is normal. Right Ventricle * The right ventricle is normal in size and function. * The right ventricular systolic function is normal as assessed by tricuspid annular plane systolic excursion (TAPSE) (normal >1.5 cm). Atria * The left atrial size is normal. * Right atrial size is normal. Mitral Valve * The mitral valve is grossly normal. Tricuspid Valve * The tricuspid valve is not well visualized, but is grossly normal. Aortic Valve * Calcified non-coronary cusp No significant aortic stenosis Pulmonic Valve * The pulmonic valve is not well seen, but is grossly normal. Great Vessels * The aortic root is normal size. Pericardium/Pleural * There is no pericardial effusion. Great Vessels * Normal inferior vena cava size and collapsability with sniff indicates a normal right atrial pressure of 3 mmHg Left Ventricular Diastolic Function * Grade I diastolic dysfunction, (abnormal relaxation pattern). * Normal LA pressures MMode 2D Measurements and Calculations IVSd 1.2 cm IVSs 2.0 cm LVIDd 4.6 cm LVIDs 2.9 cm LVPWd 1.5 cm LVPWs 1.5 cm IVS/LVPW 0.80 FS 36.1 % EDV(Teich) 97.1 ml ESV(Teich) 33.2 ml EF(Teich) 65.8 % EDV(cubed) 97.1 ml ESV(cubed) 25.3 ml EF(cubed) 73.9 % % IVS thick 71.4 % % LVPW thick 0.69 % LV mass(C)d 232.5 grams LV mass(C)dI 123.9 grams/m\S\2 LV mass(C)s 197.5 grams LV mass(C)sI 105.3 grams/m\S\2 SV(Teich) 63.9 ml SI(Teich) 34.1 ml/m\S\2 SV(cubed) 71.8 ml SI(cubed) 38.3 ml/m\S\2 ACS 1.6 cm LA dimension 3.7 cm asc Aorta Diam 2.9 cm LVOT diam 2.1 cm LVOT area 3.5 cm\S\2 LVAd ap4 32.8 cm\S\2 LVLd ap4 8.3 cm EDV(MOD-sp4) 108.5 ml EDV(sp4-el) 109.8 ml LVAs ap4 18.2 cm\S\2 LVLs ap4 7.2 cm ESV(MOD-sp4) 39.5 ml ESV(sp4-el) 39.4 ml EF(MOD-sp4) 63.6 % EF(sp4-el) 64.1 % SV(MOD-sp4) 69.0 ml SI(MOD-sp4) 36.8 ml/m\S\2 SV(sp4-el) 70.4 ml SI(sp4-el) 37.5 ml/m\S\2 Doppler Measurements and Calculations MV E max paulino 88.5 cm/sec MV A max paulino 113.3 cm/sec MV E/A 0.78 MV dec time 0.16 sec Ao V2 max 136.3 cm/sec Ao max PG 7.4 mmHg Ao max PG (full) 5.1 mmHg MEDINA(V,A) 1.9 cm\S\2 MEDINA(V,D) 1.9 cm\S\2 LV V1 max PG 2.3 mmHg LV V1 max 75.7 cm/sec PA V2 max 69.6 cm/sec PA max PG 1.9 mmHg
--- NOTE | 2017-03-25 16:58 | Family Medicine Progress Note ---
Progress Note Date of Service Mar 25, 2017. Subjective Pt evaluation today including: conversation w/ patient, physical exam, chart review, lab review, review of studies, review of inpatient medication list Pain: No pain reported by patient PO Intake: No issues, normal diet Voiding: no voiding problems Patient today was complaining of feeling acutely dyspneic and asked for another duoneb, which was given He reports no pain Currently on 2L NC with SpO2 95% Constitutional: No see HPI, No fever, No chills, No sweats, No weight loss, No weakness, No fatigue, No problem reported Eyes: No see HPI, No worsening of vision, No eye pain, No redness, No discharge, No diplopia, No problem reported ENT: No see HPI, No hearing loss, No unusual epistaxis, No nasal symptoms, No sore throat, No tinnitus, No dental problems, No trouble swallowing, No problem reported Respiratory: + see HPI, + cough, + sputum, + wheezing, + shortness of breath Cardiovascular: No see HPI, No chest pain, No orthopnea, No PND, No edema, No claudication, No palpitations, No problem reported Psychiatric: + anhedonism All Other Systems: Reviewed and Negative Medications Current Inpatient Medications Medications (Trade) Dose Ordered Sig/Evelyn Route Start Time Stop Time Status Last Admin Dose Admin Enoxaparin Sodium (Lovenox Inj) 40 mg Q24H SC 03/22/17 21:00 04/21/17 20:59 03/24/17 20:39 40 MG Acetaminophen (Tylenol Tab) 650 mg Q4H PRN PO 03/22/17 17:30 04/21/17 17:29 Magnesium Hydroxide (Milk Of Magnesia Susp) 30 ml Q12H PRN PO 03/22/17 17:30 04/21/17 17:29 Ondansetron HCl (Zofran Inj) 4 mg Q6H PRN IV 03/22/17 17:30 04/21/17 17:29 Polyethylene (Miralax Powder Packet) 17 gm DAILY PRN PO 03/22/17 17:30 04/21/17 17:29 03/24/17 21:02 17 GM Albuterol/ Ipratropium (Duoneb) 3 ml QIDR INH 03/22/17 20:00 04/21/17 19:59 03/25/17 15:05 3 ML Nicotine (Nicoderm Cq 14MG Patch) 1 patch QAM TD 03/22/17 17:30 04/21/17 17:29 03/24/17 07:38 1 PATCH Miscellaneous (Remove Nicoderm Patch) 1 ea HS N/A 03/22/17 21:00 04/21/17 20:59 03/24/17 20:56 1 EA Guaifenesin (Mucinex Contr Rel Tab) 600 mg Q12 PO 03/22/17 21:00 04/21/17 20:59 Future Hold 03/23/17 07:29 600 MG Roflumilast (Daliresp Tab) 500 mcg DAILY PO 03/23/17 09:00 04/22/17 08:59 03/25/17 08:51 500 MCG Rosuvastatin Calcium (Crestor Tab) 20 mg QAM PO 03/23/17 09:00 04/22/17 08:59 03/25/17 08:51 20 MG Temazepam (Restoril Cap) 15 mg HS PRN PO 03/22/17 17:30 04/21/17 17:29 Tiotropium [place] (Spiriva Handihaler Inhaler) 1 puff DAILY INH 03/23/17 09:00 04/22/17 08:59 03/25/17 08:51 1 PUFF Miscellaneous Information (Order Awaiting Action) 1 ea QS N/A 03/23/17 00:00 04/22/17 00:00 Mirtazapine (Remeron Tab) 30 mg HS PO 03/22/17 21:00 04/21/17 20:59 03/24/17 20:37 30 MG Olanzapine (Zyprexa Tab) 15 mg DAILY PO 03/23/17 09:00 04/22/17 08:59 03/25/17 08:51 15 MG Doxepin HCl (Sinequan Cap) 150 mg HS PO 03/22/17 21:00 04/21/17 20:59 03/24/17 20:37 150 MG Miscellaneous Information (Order Awaiting Action) 1 ea QS N/A 03/23/17 00:00 04/22/17 00:00 Bisacodyl (Dulcolax Tab) 5 mg DAILY PO 03/22/17 18:15 04/21/17 18:14 03/25/17 08:51 5 MG Insulin Aspart (novoLOG ASPART) SLIDING SCALE G... ACHS SC 03/22/17 21:00 04/21/17 20:59 03/25/17 14:35 8 UNITS Metoprolol Tartrate (Lopressor Iv) 5 mg Q4 PRN IV 03/22/17 18:30 04/21/17 18:29 Vancomycin HCl (Consult) 1 ea UD PRN N/A 03/22/17 18:45 04/21/17 18:44 Piperacillin Sod/ Tazobactam Sod (Consult) 1 ea UD PRN N/A 03/22/17 18:45 04/21/17 18:44 Ioversol (Optiray 320) 100 ml UD PRN IV 03/22/17 20:00 03/26/17 19:59 Piperacillin Sod/ Tazobactam Sod 3.375 gm/Dextrose 115 ml @ 28.75 mls/ hr Q8H IV 03/22/17 22:00 03/29/17 23:59 03/25/17 13:59 28.75 MLS/HR Vancomycin HCl 1250 mg/Sodium Chloride 275 ml @ 125 mls/hr Q10H IV 03/25/17 04:00 03/29/17 23:59 03/25/17 14:11 125 MLS/HR Methylprednisolone Sodium Succinate 60 mg/Syringe 0.96 ml @ 1.5 mls/min Q12 IV 03/25/17 21:00 04/21/17 18:29 Objective Vital Signs Date Time Temp Pulse Resp B/P (MAP) Pulse Ox O2 Delivery O2 Flow Rate FiO2 03/25/17 15:05 106 18 95 Nasal Cannula 2.0 03/25/17 14:52 36.5 101 18 124/86 (99) 97 Nasal Cannula 4.0 03/25/17 12:20 36.8 104 18 115/74 (88) 95 Nasal Cannula 4.0 03/25/17 12:00 95 Nasal Cannula 2.0 03/25/17 11:15 106 18 95 Nasal Cannula 2.0 03/25/17 09:12 101 20 93 Nasal Cannula 2.0 03/25/17 08:16 36.8 107 20 124/80 (95) 95 Nasal Cannula 4.0 03/25/17 08:05 Nasal Cannula 4.0 03/25/17 07:07 90 18 96 Nasal Cannula 2.0 03/25/17 04:00 36.5 98 20 124/81 (95) 97 Nasal Cannula 4.0 03/25/17 04:00 97 Nasal Cannula 4.0 03/25/17 00:00 97 Nasal Cannula 4.0 03/24/17 23:00 36.4 102 16 139/79 (99) 97 Nasal Cannula 4.0 03/24/17 20:00 94 Nasal Cannula 2.0 03/24/17 19:19 94 18 95 Nasal Cannula 2.0 03/24/17 18:39 36.7 104 18 116/92 (100) 94 Nasal Cannula 2.0 Physical Exam General Appearance: WD/WN, no apparent distress Eyes: normal inspection, PERRL, EOMI, sclerae normal ENT: pharynx normal Neck: supple, no JVD Respiratory/Chest: chest non-tender, no accessory muscle use, + decreased breath sounds, + wheezing Cardiovascular: regular rate, rhythm, no murmur, + tachycardia Abdomen: normal bowel sounds, non tender, soft, no organomegaly Extremities: normal range of motion, non-tender Neurologic/Psychiatric: alert, oriented x 3, + pertinent finding (flat affect) Skin: normal color Lymphatic: no adenopathy Laboratory Results 03/25/17 05:19 Red Blood Count 3.94, Mean Corpuscular Volume 103.8, Mean Corpuscular Hemoglobin 33.0, Mean Corpuscular Hemoglobin Concent 31.8, Mean Platelet Volume 10.5, Neutrophils (%) (Auto) 92.7, Lymphocytes (%) (Auto) 3.4, Monocytes (%) ( Auto) 3.2, Eosinophils (%) (Auto) 0.0, Basophils (%) (Auto) 0.0, Neutrophils # ( Auto) 14.96, Lymphocytes # (Auto) 0.55, Monocytes # (Auto) 0.52, Eosinophils # ( Auto) 0.00, Basophils # (Auto) 0.00 03/25/17 05:19 Test 03/25/17 05:19 03/25/17 16:16 White Blood Count 16.14 K/uL (4.8-10.8) Red Blood Count 3.94 M/uL (4.7-6.1) Hemoglobin 13.0 g/dL (14.0-18.0) Hematocrit 40.9 % (42-52) Mean Corpuscular Volume 103.8 fL (80-100) Mean Corpuscular Hemoglobin 33.0 pg (25-34) Mean Corpuscular Hemoglobin Concent 31.8 g/dl (32-36) Platelet Count 219 K/uL (130-400) Mean Platelet Volume 10.5 fL (7.4-10.4) Neutrophils (%) (Auto) 92.7 % Lymphocytes (%) (Auto) 3.4 % Monocytes (%) (Auto) 3.2 % Eosinophils (%) (Auto) 0.0 % Basophils (%) (Auto) 0.0 % Neutrophils # (Auto) 14.96 K/uL (1.4-6.5) Lymphocytes # (Auto) 0.55 K/uL (1.2-3.4) Monocytes # (Auto) 0.52 K/uL (0.11-0.59) Eosinophils # (Auto) 0.00 K/uL (0-0.5) Basophils # (Auto) 0.00 K/uL (0-0.2) RDW Standard Deviation 58.9 fL (36.4-46.3) RDW Coefficient of Variation 15.4 % (11.5-14.5) Immature Granulocyte % (Auto) 0.7 % Immature Granulocyte # (Auto) 0.11 K/uL (0.00-0.02) Est Creatinine Clear Calc Drug Dose 94.2 ml/min Estimated GFR () 111.4 Estimated GFR (Non- 96.1 Bedside Glucose 283 mg/dl (70-99) Assessment and Plan 62 yo M with PMHx of advanced COPD, bronchietasis, chronic tobacco smoker of 0.5 -1 ppd x 45 years, and sensorineural hearing loss, 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 Shortness of breath / PNA: - Hx COPD. 13 Sep CTA noted no evidence of PE but a right base infiltrate concerning for PNA. - Continue zosyn and vancomycin empirically considering relapse this morning. - Cultures pending. Pulmonary consult placed, appreciate their recs. Ongoing pulmonary toilet with duonebs, solumedrol, Spiriva,and daliresp. - Leukocytosis improved from 19 to 16 today - 13Sep BCx x 2 pending, but no growth as of 15Sep. - Sputum cultures pending - Pt has a hx of EVE and may benefit from CPAP at night. - consulted pulm; recommend steroid taper - Solumedrol switched to 60 mg IV q12; will switch to oral prednisone 60 mg daily - Patient activity level increased as tolerated - BIPAP for overnight if he can tolerate. Bilateral supraclavicular region lymphadenopathy: Per pt, has been present for about six months, worse in past month (prior reports stated in past week). No prior PCM workup per pt. Says not painful and doesn't limit his speaking, swallowing, neck ROM, or cause impact on ADL's. Not tender on exam. Doesnt look clearly infectious. Soft tissue u/s did not show any focal masses or fluid pockets. Source remains unclear at this point. Tachycardia: Noted on admit. EKG on 13Sep was sinus tachy 102 without other acute changes. TnI x 3 negative. CTA did not show evidence of PE. Gave IVF without much change. May be due to fighting ongoing pulm infection. - Patient does not take any oral hypertensive agents as an outpatient, likely due to his shortness of breath at this time. Will consider Lopressor IV when necessary for tachycardia greater than 120 bpm. PMH Bipolar disorder: - Patient takes Trintellix 10 mg daily, will ask him to bring supply from home as this is not available as an inpatient - Continue olanzapine 15 mg daily - Follows with Dr. Veras at [id number], and was seen in office 1 month ago. PMH Insomnia: - Continue doxepin 150 mg QHS, mirtazapine 30 mg QHS, and temazepam 15 mg QHS prn ? Constipation: - Ordered dulcolax tabs, MiraLAX, and milk of magnesia when necessary PMH Hyperlipidemia: - Continue Crestor 20 mg daily Disposition: Remains on telemetry. DVT prophylaxis: Heparin, teds, SCDs CODE STATUS: Full code History Resident Physician Supervision Note: I was present with Dr. Amaya during the history and exam. I discussed the case with the resident and agree with the findings and plan as documented in the note. Any exceptions or clarifications are listed here. Pt seen and examined at bedside. Overnight reported some worsening of SOB which is resolved now. Overall condition improved since previous, may be approaching baseline, though pt unsure as 'wheezes at home'. Reports no positional SOB or fever. General Appearance: WD/WN, no apparent distress Neck: non-tender, full range of motion, supple, other (persistent, mild diffuse swelling w/ NL US) Respiratory: chest non-tender, no respiratory distress, rhonchi, wheezing ( improved air movement but still diffuse) Cardiovascular: normal peripheral pulses, regular rate, rhythm, no edema, no murmur Gastrointestinal: normal bowel sounds, non tender, soft, no organomegaly Assessment/Plan 62 y/o male h/o COPD, ~40pk year smoking hx, AFB p/w worsening SOB/cough COPD exacerbation, failed outpt therapy - pulmonology aware, input appreciated - zosyn, d/c vanc, taper solumedrol, continue inhaler regimen (minus breo, as is on solumedrol) - awaiting clinical improvement, will trial transition to PO in AM Tachycardia - somewhat improved w/ improved respiratory status, on telemetry, no response to fluid bolus B/L Neck swelling - US complete, no apparent cause for subjective swelling on US Constipation - bowel regimen Bipolar - continue outpatient regimen HLD - continue crestor Resident Tracking Resident Involvement: Resident Care Provided Care Provided: Adult Hospital Medicine
--- NOTE | 2017-03-25 19:17 | Pulmonology Progress Note ---
Pulmonary Progress Note Date of Service Mar 25, 2017. Attending Dr. Rivas Subjective Patient seen and examined this afternoon. States that he feels a little bit better, still wheezing. States he wheezes at home, but this is a little worse. Denies any chest pain. States he would like to get up out of bed and go for a walk. Objective VS: reviewed, Sao2 93-97% on 2-4L Gen: AAOx3, NAD, speaking in full sentences, calm but appears is tachypnea CVS: S1, S2, tachycardic Abd: soft/NT/ND BS+ Ext: no edema bilaterally, no cyanosis, no clubbing Labs reviewed WBC 10--> 19-->16 Hgb 15-->13.6-->13, MCV 103 Sputum culture 03/24--pending, AFB--pending Blood culture 03/22/2017--no growth to date Imaging viewed and reviewed by me TTE 03/25/2017 * -- Conclusions -- * The left ventricle is normal in size. * There is mild concentric left ventricular hypertrophy. * Left ventricular systolic function is normal. * Ejection Fraction = 60-65%. * The left ventricular wall motion is normal. * The right ventricle is normal in size and function. * The right ventricular systolic function is normal as assessed by tricuspid annular plane systolic excursion (TAPSE) (normal >1.5 cm). * Calcified non-coronary cusp * No significant aortic stenosis * Grade I diastolic dysfunction, (abnormal relaxation pattern). * Normal LA pressures Bilateral supraclavicular U/S 03/23/2017 FINDINGS: No masses or fluid collections within the supraclavicular locations. No lymphadenopathy. IMPRESSION: No sonographic abnormality within the bilateral supraclavicular locations. Medications reviewed Assessment & Plan Assessment and Plan COPD exacerbation EVE Bronchiectasis Right lower lobe pneumonia Tobacco use disorder At the current time I would continue patient patient has severe COPD which is most likely exacerbated from right lower lobe pneumonia and failing outpatient empiric antibiotic therapy. Blood cultures are negative to date, sputum cultures are pending. He still has persistent wheezes and tachypnea--he is mildly improved. Continue supplemental oxygen to maintain SaO2 above 92%. Patient does have history of EVE so consider CPAP at night. If patient has worsened work of breathing can give BIPAP. Continue with Duonebs q6h, Taper solumedrol , Spiriva and Daliresp. Continue with aggressive chest PT, flutter valve Continue with nicotine patch Consider patient out of bed to chair and ambulation with assistance. Data Medications: Current Inpatient Medications Medications (Trade) Dose Ordered Sig/Evelyn Route Start Time Stop Time Status Last Admin Dose Admin Enoxaparin Sodium (Lovenox Inj) 40 mg Q24H SC 03/22/17 21:00 04/21/17 20:59 03/24/17 20:39 40 MG Acetaminophen (Tylenol Tab) 650 mg Q4H PRN PO 03/22/17 17:30 04/21/17 17:29 Magnesium Hydroxide (Milk Of Magnesia Susp) 30 ml Q12H PRN PO 03/22/17 17:30 04/21/17 17:29 Ondansetron HCl (Zofran Inj) 4 mg Q6H PRN IV 03/22/17 17:30 04/21/17 17:29 Polyethylene (Miralax Powder Packet) 17 gm DAILY PRN PO 03/22/17 17:30 04/21/17 17:29 03/24/17 21:02 17 GM Albuterol/ Ipratropium (Duoneb) 3 ml QIDR INH 03/22/17 20:00 04/21/17 19:59 03/25/17 15:05 3 ML Nicotine (Nicoderm Cq 14MG Patch) 1 patch QAM TD 03/22/17 17:30 04/21/17 17:29 03/24/17 07:38 1 PATCH Miscellaneous (Remove Nicoderm Patch) 1 ea HS N/A 03/22/17 21:00 04/21/17 20:59 03/24/17 20:56 1 EA Guaifenesin (Mucinex Contr Rel Tab) 600 mg Q12 PO 03/22/17 21:00 04/21/17 20:59 Future Hold 03/23/17 07:29 600 MG Roflumilast (Daliresp Tab) 500 mcg DAILY PO 03/23/17 09:00 04/22/17 08:59 03/25/17 08:51 500 MCG Rosuvastatin Calcium (Crestor Tab) 20 mg QAM PO 03/23/17 09:00 04/22/17 08:59 03/25/17 08:51 20 MG Temazepam (Restoril Cap) 15 mg HS PRN PO 03/22/17 17:30 04/21/17 17:29 Tiotropium [place] (Spiriva Handihaler Inhaler) 1 puff DAILY INH 03/23/17 09:00 04/22/17 08:59 03/25/17 08:51 1 PUFF Miscellaneous Information (Order Awaiting Action) 1 ea QS N/A 03/23/17 00:00 04/22/17 00:00 Mirtazapine (Remeron Tab) 30 mg HS PO 03/22/17 21:00 04/21/17 20:59 03/24/17 20:37 30 MG Olanzapine (Zyprexa Tab) 15 mg DAILY PO 03/23/17 09:00 04/22/17 08:59 03/25/17 08:51 15 MG Doxepin HCl (Sinequan Cap) 150 mg HS PO 03/22/17 21:00 04/21/17 20:59 03/24/17 20:37 150 MG Miscellaneous Information (Order Awaiting Action) 1 ea QS N/A 03/23/17 00:00 04/22/17 00:00 Bisacodyl (Dulcolax Tab) 5 mg DAILY PO 03/22/17 18:15 04/21/17 18:14 03/25/17 08:51 5 MG Metoprolol Tartrate (Lopressor Iv) 5 mg Q4 PRN IV 03/22/17 18:30 04/21/17 18:29 Vancomycin HCl (Consult) 1 ea UD PRN N/A 03/22/17 18:45 04/21/17 18:44 Piperacillin Sod/ Tazobactam Sod (Consult) 1 ea UD PRN N/A 03/22/17 18:45 04/21/17 18:44 Ioversol (Optiray 320) 100 ml UD PRN IV 03/22/17 20:00 03/26/17 19:59 Piperacillin Sod/ Tazobactam Sod 3.375 gm/Dextrose 115 ml @ 28.75 mls/ hr Q8H IV 03/22/17 22:00 03/29/17 23:59 03/25/17 13:59 28.75 MLS/HR Vancomycin HCl 1250 mg/Sodium Chloride 275 ml @ 125 mls/hr Q10H IV 03/25/17 04:00 03/29/17 23:59 03/25/17 14:11 125 MLS/HR Methylprednisolone Sodium Succinate 60 mg/Syringe 0.96 ml @ 1.5 mls/min Q12 IV 03/25/17 21:00 04/21/17 18:29 Insulin Aspart (novoLOG ASPART) SLIDING SCALE G... ACHS SC 03/25/17 16:15 04/24/17 16:14 03/25/17 18:28 14 UNITS Insulin Glargine (Lantus Solostar Pen) 10 units BID SC 03/25/17 21:00 04/24/17 20:59 I & O: 24-Hour Column 03/26/17 08:00 Intake Total 515 ml Balance 515 ml Vital Signs: Date Time Temp Pulse Resp B/P (MAP) Pulse Ox O2 Delivery O2 Flow Rate FiO2 03/25/17 16:00 95 Nasal Cannula 2.0 03/25/17 15:05 106 18 95 Nasal Cannula 2.0 03/25/17 14:52 36.5 101 18 124/86 (99) 97 Nasal Cannula 4.0 03/25/17 12:20 36.8 104 18 115/74 (88) 95 Nasal Cannula 4.0 03/25/17 12:00 95 Nasal Cannula 2.0 03/25/17 11:15 106 18 95 Nasal Cannula 2.0 03/25/17 09:12 101 20 93 Nasal Cannula 2.0 03/25/17 08:16 36.8 107 20 124/80 (95) 95 Nasal Cannula 4.0 03/25/17 08:05 Nasal Cannula 4.0 03/25/17 07:07 90 18 96 Nasal Cannula 2.0 03/25/17 04:00 36.5 98 20 124/81 (95) 97 Nasal Cannula 4.0 03/25/17 04:00 97 Nasal Cannula 4.0 03/25/17 00:00 97 Nasal Cannula 4.0 03/24/17 23:00 36.4 102 16 139/79 (99) 97 Nasal Cannula 4.0 03/24/17 20:00 94 Nasal Cannula 2.0 03/24/17 19:19 94 18 95 Nasal Cannula 2.0 Laboratory Results: Last 24 Hours Test 03/24/17 20:00 03/25/17 05:19 03/25/17 07:05 03/25/17 11:25 Bedside Glucose 232 mg/dl 194 mg/dl 212 mg/dl White Blood Count 16.14 K/uL Red Blood Count 3.94 M/uL Hemoglobin 13.0 g/dL Hematocrit 40.9 % Mean Corpuscular Volume 103.8 fL Mean Corpuscular Hemoglobin 33.0 pg Mean Corpuscular Hemoglobin Concent 31.8 g/dl Platelet Count 219 K/uL Mean Platelet Volume 10.5 fL Neutrophils (%) (Auto) 92.7 % Lymphocytes (%) (Auto) 3.4 % Monocytes (%) (Auto) 3.2 % Eosinophils (%) (Auto) 0.0 % Basophils (%) (Auto) 0.0 % Neutrophils # (Auto) 14.96 K/uL Lymphocytes # (Auto) 0.55 K/uL Monocytes # (Auto) 0.52 K/uL Eosinophils # (Auto) 0.00 K/uL Basophils # (Auto) 0.00 K/uL RDW Standard Deviation 58.9 fL RDW Coefficient of Variation 15.4 % Immature Granulocyte % (Auto) 0.7 % Immature Granulocyte # (Auto) 0.11 K/uL Creatinine 0.82 mg/dl Est Creatinine Clear Calc Drug Dose 94.2 ml/min Estimated GFR () 111.4 Estimated GFR (Non- 96.1 Test 03/25/17 16:16 Bedside Glucose 283 mg/dl
[2017-03-25] MEDS: DOXEPIN HCL 50 MG CAP PO SCH (20:03)
[2017-03-25] MEDS: MIRTAZAPINE TAB 15 MG TAB PO SCH (20:03)
[2017-03-25] MEDS: ENOXAPARIN 40 MG/0.4 ML SYR SC SCH (20:05)
[2017-03-25] MEDS ORDERED: METHYLPREDNISOLONE IV 60 MG in SYRINGE 0 ML IV SCH (21:00)
[2017-03-25] MEDS: INSULIN GLARGINE SOLOSTAR 100 UNITS/ML 3 ML PEN SC SCH (22:10)
[2017-03-26] VITALS (14 sets, daily range): BP systolic 114–133; BP diastolic 66–90; PULSE 91–110; TEMP 36.6–36.8; O2SAT 91–99
[2017-03-26] MEDS: VANCOMYCIN INJ 1,250 MG in SODIUM CHLORIDE 0.9% 250ML 250 ML IV SCH ×2 (00:09→10:21)
[2017-03-26] MEDS: PIPERACILL/TAZOBAC IV 3.375 GM in DEXTROSE 5% 100ML IV SCH ×2 (06:05→13:38)
[2017-03-26] MEDS: ALBUT/IPRATROP 3MG/0.5MG NEB 3 ML VIAL INH SCH ×4 (06:22→18:47)
[2017-03-26] MEDS: TRINTELLIX: ORDER AWAITING ACTION SCH ×4 (08:00→23:27)
[2017-03-26] MEDS: TIOTROPIUM BROMIDE 5 PUFF/90 MCG INH INH SCH (08:24)
[2017-03-26] MEDS: ROFLUMILAST 500 MCG TAB PO SCH (08:25)
[2017-03-26] MEDS: BISACODYL 5 MG TABEC PO SCH (08:25)
[2017-03-26] MEDS: ROSUVASTATIN CALCIUM 20 MG TAB PO SCH (08:25)
[2017-03-26] MEDS: OLANZAPINE 10 MG TAB PO SCH (08:25)
[2017-03-26] MEDS: NICOTINE 14 MG/24 HR TDSY TD SCH (08:26)
[2017-03-26] MEDS: INSULIN GLARGINE SOLOSTAR 100 UNITS/ML 3 ML PEN SC SCH ×2 (08:29→21:12)
[2017-03-26] MEDS: INSULIN ASPART 100 UNITS/ML 3 ML PEN SC SCH ×4 (08:29→21:13)
[2017-03-26] MEDS ORDERED: VANCOMYCIN TROUGH SCH (09:30)
[2017-03-26 09:40] LABS: BASO % 0.1 %; BASO ABS # 0.01 K/uL (0-0.2); COMPLETE YES; HEMATOCRIT 43.3 % (42-52); LYMPH % 6.9 %; LYMPH ABS # 1.04 K/uL (1.2-3.4); MEAN CELL VOLUME 101.9 fL (80-100); MEAN CORPUSCULAR HEMOGLOBIN 33.2 pg (25-34); MEAN CORPUSCULAR HGB CONC 32.6 g/dl (32-36); MEAN PLATELET VOLUME 10.3 fL (7.4-10.4); MONO % 5.3 %; NEUT % 86.7 %; PLATELET COUNT 212 K/uL (130-400); RED BLOOD COUNT 4.25 M/uL (4.7-6.1); WHITE BLOOD COUNT 15.05 K/uL (4.8-10.8)
[2017-03-26 10:11] LABS: CREATININE 0.83 mg/dl (0.60-1.40)
[2017-03-26 10:12] LABS: BUN/CREATININE RATIO 21.9 (10-20); CREATININE 0.84 mg/dl (0.60-1.40)
--- NOTE | 2017-03-26 10:18 | Pulmonology Progress Note ---
Pulmonary Progress Note Date of Service Mar 26, 2017. Attending Dr. Rivas Subjective Patient seen and examined. He states that he feels the same. He is still a little short of breath, still wheezing. Objective VS: reviewed Tm 36.7, P 91, BP 122/74-133/85, SaO2 93-99%. Gen: AAOx3, NAD, speaking in full sentences, calm but appears is tachypnea CVS: S1, S2, tachycardic Abd: soft/NT/ND BS+ Ext: no edema bilaterally, no cyanosis, no clubbing Labs reviewed WBC 10--> 19-->16-->15 Hgb 15-->13.6-->13-->14, MCV 101 Sputum culture 03/24--cancelled, AFB--pending Blood culture 03/22/2017--no growth to date Imaging viewed and reviewed by wa TTE 03/25/2017 * -- Conclusions -- * The left ventricle is normal in size. * There is mild concentric left ventricular hypertrophy. * Left ventricular systolic function is normal. * Ejection Fraction = 60-65%. * The left ventricular wall motion is normal. * The right ventricle is normal in size and function. * The right ventricular systolic function is normal as assessed by tricuspid annular plane systolic excursion (TAPSE) (normal >1.5 cm). * Calcified non-coronary cusp * No significant aortic stenosis * Grade I diastolic dysfunction, (abnormal relaxation pattern). * Normal LA pressures Bilateral supraclavicular U/S 03/23/2017 FINDINGS: No masses or fluid collections within the supraclavicular locations. No lymphadenopathy. IMPRESSION: No sonographic abnormality within the bilateral supraclavicular locations. Medications reviewed Assessment & Plan Assessment and Plan COPD exacerbation EVE Bronchiectasis Right lower lobe pneumonia Tobacco use disorder At the current time I would continue patient patient has severe COPD which is most likely exacerbated from right lower lobe pneumonia and failing outpatient empiric antibiotic therapy. Blood cultures are negative to date, sputum cultures are pending. He still has persistent wheezes and tachypnea--he improving Continue supplemental oxygen to maintain SaO2 above 92%. Patient does have history of EVE so consider CPAP at night. If patient has worsened work of breathing can give BIPAP. Continue with Duonebs q6h, Spiriva and Daliresp. Patient now switched to oral prednisone 60 mg, which should be tapered by 5 mg dailiy until finished. Continue with aggressive chest PT, flutter valve Continue with nicotine patch I will sign off case today. Please reconsult if you have any other further questions or concerns. Data Medications: Current Inpatient Medications Medications (Trade) Dose Ordered Sig/Evelyn Route Start Time Stop Time Status Last Admin Dose Admin Enoxaparin Sodium (Lovenox Inj) 40 mg Q24H SC 03/22/17 21:00 04/21/17 20:59 03/25/17 20:05 40 MG Acetaminophen (Tylenol Tab) 650 mg Q4H PRN PO 03/22/17 17:30 04/21/17 17:29 Magnesium Hydroxide (Milk Of Magnesia Susp) 30 ml Q12H PRN PO 03/22/17 17:30 04/21/17 17:29 Ondansetron HCl (Zofran Inj) 4 mg Q6H PRN IV 03/22/17 17:30 04/21/17 17:29 Polyethylene (Miralax Powder Packet) 17 gm DAILY PRN PO 03/22/17 17:30 04/21/17 17:29 03/24/17 21:02 17 GM Albuterol/ Ipratropium (Duoneb) 3 ml QIDR INH 03/22/17 20:00 04/21/17 19:59 03/26/17 06:22 3 ML Nicotine (Nicoderm Cq 14MG Patch) 1 patch QAM TD 03/22/17 17:30 04/21/17 17:29 03/26/17 08:26 1 PATCH Miscellaneous (Remove Nicoderm Patch) 1 ea HS N/A 03/22/17 21:00 04/21/17 20:59 03/25/17 20:02 1 EA Guaifenesin (Mucinex Contr Rel Tab) 600 mg Q12 PO 03/22/17 21:00 04/21/17 20:59 Future Hold 03/23/17 07:29 600 MG Roflumilast (Daliresp Tab) 500 mcg DAILY PO 03/23/17 09:00 04/22/17 08:59 03/26/17 08:25 500 MCG Rosuvastatin Calcium (Crestor Tab) 20 mg QAM PO 03/23/17 09:00 04/22/17 08:59 03/26/17 08:25 20 MG Temazepam (Restoril Cap) 15 mg HS PRN PO 03/22/17 17:30 04/21/17 17:29 Tiotropium [place] (Spiriva Handihaler Inhaler) 1 puff DAILY INH 03/23/17 09:00 04/22/17 08:59 03/26/17 08:24 1 PUFF Miscellaneous Information (Order Awaiting Action) 1 ea QS N/A 03/23/17 00:00 04/22/17 00:00 Mirtazapine (Remeron Tab) 30 mg HS PO 03/22/17 21:00 04/21/17 20:59 03/25/17 20:03 30 MG Olanzapine (Zyprexa Tab) 15 mg DAILY PO 03/23/17 09:00 04/22/17 08:59 03/26/17 08:25 15 MG Doxepin HCl (Sinequan Cap) 150 mg HS PO 03/22/17 21:00 04/21/17 20:59 03/25/17 20:03 150 MG Miscellaneous Information (Order Awaiting Action) 1 ea QS N/A 03/23/17 00:00 04/22/17 00:00 Bisacodyl (Dulcolax Tab) 5 mg DAILY PO 03/22/17 18:15 04/21/17 18:14 03/26/17 08:25 5 MG Metoprolol Tartrate (Lopressor Iv) 5 mg Q4 PRN IV 03/22/17 18:30 04/21/17 18:29 Vancomycin HCl (Consult) 1 ea UD PRN N/A 03/22/17 18:45 04/21/17 18:44 Piperacillin Sod/ Tazobactam Sod (Consult) 1 ea UD PRN N/A 03/22/17 18:45 04/21/17 18:44 Ioversol (Optiray 320) 100 ml UD PRN IV 03/22/17 20:00 03/26/17 19:59 Piperacillin Sod/ Tazobactam Sod 3.375 gm/Dextrose 115 ml @ 28.75 mls/ hr Q8H IV 03/22/17 22:00 03/29/17 23:59 03/26/17 06:05 28.75 MLS/HR Vancomycin HCl 1250 mg/Sodium Chloride 275 ml @ 125 mls/hr Q10H IV 03/25/17 04:00 03/29/17 23:59 03/26/17 00:09 125 MLS/HR Insulin Aspart (novoLOG ASPART) SLIDING SCALE G... ACHS SC 03/25/17 16:15 04/24/17 16:14 03/26/17 08:29 6 UNITS Insulin Glargine (Lantus Solostar Pen) 10 units BID SC 03/25/17 21:00 04/24/17 20:59 03/26/17 08:29 10 UNITS Prednisone (PredniSONE TAB) 60 mg DAILY PO 03/26/17 09:00 04/25/17 08:59 03/26/17 09:23 60 MG Vital Signs: Date Time Temp Pulse Resp B/P (MAP) Pulse Ox O2 Delivery O2 Flow Rate FiO2 03/26/17 07:35 36.7 91 18 130/90 (103) 93 Room Air 03/26/17 06:22 99 20 95 Nasal Cannula 3.0 03/26/17 03:23 Nasal Cannula 3.0 03/26/17 03:15 36.7 94 24 122/74 (90) 99 Nasal Cannula 3.0 03/26/17 00:02 36.6 21 133/85 (101) 93 Nasal Cannula 3.0 03/25/17 23:45 Nasal Cannula 3.0 03/25/17 19:55 Nasal Cannula 03/25/17 19:25 36.5 107 18 116/76 (89) 93 Nasal Cannula 3.0 03/25/17 19:06 108 20 96 Nasal Cannula 2.0 03/25/17 16:00 95 Nasal Cannula 2.0 03/25/17 15:05 106 18 95 Nasal Cannula 2.0 03/25/17 14:52 36.5 101 18 124/86 (99) 97 Nasal Cannula 4.0 03/25/17 12:20 36.8 104 18 115/74 (88) 95 Nasal Cannula 4.0 03/25/17 12:00 95 Nasal Cannula 2.0 03/25/17 11:15 106 18 95 Nasal Cannula 2.0 Laboratory Results: Last 24 Hours Test 03/25/17 11:25 03/25/17 16:16 03/25/17 20:15 03/26/17 06:12 Bedside Glucose 212 mg/dl 283 mg/dl 124 mg/dl 167 mg/dl Test 03/26/17 09:24 White Blood Count 15.05 K/uL Red Blood Count 4.25 M/uL Hemoglobin 14.1 g/dL Hematocrit 43.3 % Mean Corpuscular Volume 101.9 fL Mean Corpuscular Hemoglobin 33.2 pg Mean Corpuscular Hemoglobin Concent 32.6 g/dl Platelet Count 212 K/uL Mean Platelet Volume 10.3 fL Neutrophils (%) (Auto) 86.7 % Lymphocytes (%) (Auto) 6.9 % Monocytes (%) (Auto) 5.3 % Eosinophils (%) (Auto) 0.0 % Basophils (%) (Auto) 0.1 % Neutrophils # (Auto) 13.05 K/uL Lymphocytes # (Auto) 1.04 K/uL Monocytes # (Auto) 0.80 K/uL Eosinophils # (Auto) 0.00 K/uL Basophils # (Auto) 0.01 K/uL RDW Standard Deviation 57.6 fL RDW Coefficient of Variation 15.4 % Immature Granulocyte % (Auto) 1.0 % Immature Granulocyte # (Auto) 0.15 K/uL Creatinine 0.83 mg/dl Est Creatinine Clear Calc Drug Dose 93.2 ml/min Estimated GFR () 110.8 Estimated GFR (Non- 95.6 Vancomycin Level Trough 18.2 mcg/ml
--- NOTE | 2017-03-26 11:17 | Family Medicine Progress Note ---
Progress Note Date of Service Mar 26, 2017. Subjective Pt evaluation today including: conversation w/ patient, physical exam, lab review, review of inpatient medication list Voiding: no voiding problems Patient sitting up eating breakfast on examination today; in no acute distress. Reports he is feeling much better than yesterday, and is eager to go home. Has 3L O2 via NC with SpO2 95% Constitutional: No fever, No chills, No sweats, No weight loss, No weakness , No fatigue, No problem reported Eyes: No worsening of vision ENT: + hearing loss, No sore throat, No trouble swallowing Respiratory: + cough, + shortness of breath, + dyspnea on exertion, + dyspnea at rest, No sputum Cardiovascular: No chest pain, No edema, No claudication, No palpitations Abdomen: No pain, No nausea, No vomiting, No diarrhea Male : No dysuria, No urinary frequency, No hematuria Neurologic: No memory loss Medications Current Inpatient Medications Medications (Trade) Dose Ordered Sig/Evelyn Route Start Time Stop Time Status Last Admin Dose Admin Enoxaparin Sodium (Lovenox Inj) 40 mg Q24H SC 03/22/17 21:00 04/21/17 20:59 03/25/17 20:05 40 MG Acetaminophen (Tylenol Tab) 650 mg Q4H PRN PO 03/22/17 17:30 04/21/17 17:29 Magnesium Hydroxide (Milk Of Magnesia Susp) 30 ml Q12H PRN PO 03/22/17 17:30 04/21/17 17:29 Ondansetron HCl (Zofran Inj) 4 mg Q6H PRN IV 03/22/17 17:30 04/21/17 17:29 Polyethylene (Miralax Powder Packet) 17 gm DAILY PRN PO 03/22/17 17:30 04/21/17 17:29 03/24/17 21:02 17 GM Albuterol/ Ipratropium (Duoneb) 3 ml QIDR INH 03/22/17 20:00 04/21/17 19:59 03/26/17 18:47 3 ML Nicotine (Nicoderm Cq 14MG Patch) 1 patch QAM TD 03/22/17 17:30 04/21/17 17:29 03/26/17 08:26 1 PATCH Miscellaneous (Remove Nicoderm Patch) 1 ea HS N/A 03/22/17 21:00 04/21/17 20:59 03/25/17 20:02 1 EA Guaifenesin (Mucinex Contr Rel Tab) 600 mg Q12 PO 03/22/17 21:00 04/21/17 20:59 Future Hold 03/23/17 07:29 600 MG Roflumilast (Daliresp Tab) 500 mcg DAILY PO 03/23/17 09:00 04/22/17 08:59 03/26/17 08:25 500 MCG Rosuvastatin Calcium (Crestor Tab) 20 mg QAM PO 03/23/17 09:00 04/22/17 08:59 03/26/17 08:25 20 MG Temazepam (Restoril Cap) 15 mg HS PRN PO 03/22/17 17:30 04/21/17 17:29 Tiotropium [place] (Spiriva Handihaler Inhaler) 1 puff DAILY INH 03/23/17 09:00 04/22/17 08:59 03/26/17 08:24 1 PUFF Miscellaneous Information (Order Awaiting Action) 1 ea QS N/A 03/23/17 00:00 04/22/17 00:00 Mirtazapine (Remeron Tab) 30 mg HS PO 03/22/17 21:00 04/21/17 20:59 03/25/17 20:03 30 MG Olanzapine (Zyprexa Tab) 15 mg DAILY PO 03/23/17 09:00 04/22/17 08:59 03/26/17 08:25 15 MG Doxepin HCl (Sinequan Cap) 150 mg HS PO 03/22/17 21:00 04/21/17 20:59 03/25/17 20:03 150 MG Miscellaneous Information (Order Awaiting Action) 1 ea QS N/A 03/23/17 00:00 04/22/17 00:00 Bisacodyl (Dulcolax Tab) 5 mg DAILY PO 03/22/17 18:15 04/21/17 18:14 03/26/17 08:25 5 MG Metoprolol Tartrate (Lopressor Iv) 5 mg Q4 PRN IV 03/22/17 18:30 04/21/17 18:29 Ioversol (Optiray 320) 100 ml UD PRN IV 03/22/17 20:00 03/26/17 19:59 Insulin Aspart (novoLOG ASPART) SLIDING SCALE G... ACHS SC 03/25/17 16:15 04/24/17 16:14 03/26/17 16:41 11 UNITS Insulin Glargine (Lantus Solostar Pen) 10 units BID SC 03/25/17 21:00 04/24/17 20:59 03/26/17 08:29 10 UNITS Prednisone (PredniSONE TAB) 60 mg DAILY PO 03/26/17 09:00 04/25/17 08:59 03/26/17 09:23 60 MG Amoxicillin/ Clavulanate Potassium (Augmentin Tab) 875 mg BIDM PO 03/26/17 16:45 03/28/17 23:59 03/26/17 16:15 875 MG Objective Physical Exam General Appearance: WD/WN, no apparent distress Eyes: normal inspection, PERRL, EOMI ENT: normal ENT inspection, TMs normal, + pertinent finding (sensorineural hearing loss) Neck: supple, no adenopathy, no JVD Respiratory/Chest: chest non-tender, no respiratory distress, no accessory muscle use, + wheezing (expiratory, diffuse) Cardiovascular: regular rate, rhythm, no edema, no gallop, no JVD, no murmur Abdomen: normal bowel sounds, non tender, soft Extremities: normal range of motion, non-tender, no pedal edema, no calf tenderness Neurologic/Psychiatric: 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, alert, oriented x 3, + pertinent finding (flat affect) Skin: warm/dry, no rash Laboratory Results 03/26/17 09:24 Red Blood Count 4.25, Mean Corpuscular Volume 101.9, Mean Corpuscular Hemoglobin 33.2, Mean Corpuscular Hemoglobin Concent 32.6, Mean Platelet Volume 10.3, Neutrophils (%) (Auto) 86.7, Lymphocytes (%) (Auto) 6.9, Monocytes (%) ( Auto) 5.3, Eosinophils (%) (Auto) 0.0, Basophils (%) (Auto) 0.1, Neutrophils # ( Auto) 13.05, Lymphocytes # (Auto) 1.04, Monocytes # (Auto) 0.80, Eosinophils # ( Auto) 0.00, Basophils # (Auto) 0.01 03/26/17 09:24 Test 03/26/17 09:24 03/26/17 16:20 White Blood Count 15.05 K/uL (4.8-10.8) Red Blood Count 4.25 M/uL (4.7-6.1) Hemoglobin 14.1 g/dL (14.0-18.0) Hematocrit 43.3 % (42-52) Mean Corpuscular Volume 101.9 fL (80-100) Mean Corpuscular Hemoglobin 33.2 pg (25-34) Mean Corpuscular Hemoglobin Concent 32.6 g/dl (32-36) Platelet Count 212 K/uL (130-400) Mean Platelet Volume 10.3 fL (7.4-10.4) Neutrophils (%) (Auto) 86.7 % Lymphocytes (%) (Auto) 6.9 % Monocytes (%) (Auto) 5.3 % Eosinophils (%) (Auto) 0.0 % Basophils (%) (Auto) 0.1 % Neutrophils # (Auto) 13.05 K/uL (1.4-6.5) Lymphocytes # (Auto) 1.04 K/uL (1.2-3.4) Monocytes # (Auto) 0.80 K/uL (0.11-0.59) Eosinophils # (Auto) 0.00 K/uL (0-0.5) Basophils # (Auto) 0.01 K/uL (0-0.2) RDW Standard Deviation 57.6 fL (36.4-46.3) RDW Coefficient of Variation 15.4 % (11.5-14.5) Immature Granulocyte % (Auto) 1.0 % Immature Granulocyte # (Auto) 0.15 K/uL (0.00-0.02) Anion Gap 5.0 mmol/L (3-11) Est Creatinine Clear Calc Drug Dose 92.1 ml/min Estimated GFR () 110.3 Estimated GFR (Non- 95.2 BUN/Creatinine Ratio 21.9 (10-20) Calcium Level 9.0 mg/dl (8.5-10.1) Vancomycin Level Trough 18.2 mcg/ml (SEE COMMENT) Bedside Glucose 272 mg/dl (70-99) Assessment and Plan 62 yo M with PMHx of advanced COPD, bronchietasis, chronic tobacco smoker of 0.5 -1 ppd x 45 years, and sensorineural hearing loss, 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 Shortness of breath: - Hx COPD. 13 Sep CTA noted no evidence of PE but a right base infiltrate concerning for pneumonia. - DCd zosyn and vancomycin today; started on oral augmentin 875 BID x 5 days ( to complete 10 full days after 5 days of zosyn); Should have taken 1 of 10 total tablets Monday evening. - Pulmonary consulted earlier, appreciate their recs. Ongoing pulmonary toilet with duonebs, Spiriva,and daliresp prn, but weaning - only needed one duoneb this morning. - Leukocytosis improved from 16 to 15 today - 13Sep BCx x 2 pending, but no growth as of 17Sep. - Sputum cultures pending - Pt has a hx of EVE, offered BIPAP overnight; has not needed but order is placed if need be. - Solumedrol switched to oral prednisone 60 mg daily - Patient activity level increased as tolerated - Should be ready to DC tomorrow if he can tolerate room air; nursing has been weaning from O2 today to prep for DC. Pt has not had home O2 at baseline Bilateral supraclavicular region lymphadenopathy: Per pt, has been present for about six months, worse in past month (prior reports stated in past week). No prior PCM workup per pt. Says not painful and doesn't limit his speaking, swallowing, neck ROM, or cause impact on ADL's. Not tender on exam. Doesnt look clearly infectious. Soft tissue u/s did not show any focal masses or fluid pockets. Source remains unclear at this point. Tachycardia: Noted on admit. EKG on 13Sep was sinus tachy 102 without other acute changes. TnI x 3 negative. CTA did not show evidence of PE. Gave IVF without much change. May be due to fighting ongoing pulm infection. - Patient does not take any oral hypertensive agents as an outpatient, likely due to his shortness of breath at this time. - HRs slowly shifting to mid 90s PMH Bipolar disorder: - Patient takes Trintellix 10 mg daily, will ask him to bring supply from home as this is not available as an inpatient - Continue olanzapine 15 mg daily - Follows with Dr. Veras at [id number], and was seen in office 1 month ago. PMH Insomnia: - Continue doxepin 150 mg QHS, mirtazapine 30 mg QHS, and temazepam 15 mg QHS prn ? Constipation: - Ordered dulcolax tabs, MiraLAX, and milk of magnesia prn PMH Hyperlipidemia: - Continue Crestor 20 mg daily Disposition: Remains on telemetry. For DC tomorrow hopefully DVT prophylaxis: Heparin, teds, SCDs CODE STATUS: Full code History Resident Physician Supervision Note: I was present with Dr. Amaya during the history and exam. I discussed the case with the resident and agree with the findings and plan as documented in the note. Any exceptions or clarifications are listed here. Pt seen and examined at bedside. Reports breathing gradually returning to baseline with mild exacerbation overnight but improving again now. Nonproductive cough has also decreased in frequency and severity. General Appearance: WD/WN, no apparent distress Respiratory: chest non-tender, no respiratory distress, decreased breath sounds , rhonchi, wheezing (gradually improving) Cardiovascular: normal peripheral pulses, regular rate, rhythm, no edema, no murmur Assessment/Plan 62 y/o male h/o COPD, ~40pk year smoking hx, AFB p/w worsening SOB/cough COPD exacerbation, failed outpt therapy - pulmonology aware, input appreciated - transition to PO pred and augmentin, continue inhaler regimen (minus breo, as is on solumedrol) - awaiting oxygen wean Tachycardia - improved w/ improved respiratory status, on telemetry, no response to fluid bolus B/L Neck swelling - US complete, no apparent cause for subjective swelling on US Constipation - bowel regimen Bipolar - continue outpatient regimen HLD - continue crestor Resident Tracking Resident Involvement: Resident Care Provided Care Provided: Adult [facility]
[2017-03-26] MEDS: AMOXICILLIN/CLAVULANATE TAB 875 MG TAB PO SCH (16:15)
[2017-03-26] MEDS: MIRTAZAPINE TAB 15 MG TAB PO SCH (19:46)
[2017-03-26] MEDS: DOXEPIN HCL 50 MG CAP PO SCH (19:47)
[2017-03-26] MEDS: ENOXAPARIN 40 MG/0.4 ML SYR SC SCH (19:47)
[2017-03-27] VITALS (13 sets, daily range): BP systolic 107–139; BP diastolic 71–93; PULSE 92–116; TEMP 36.4–36.9; O2SAT 91–98
--- NOTE | 2017-03-27 05:37 | Family Medicine Progress Note ---
Progress Note Date of Service Mar 27, 2017. Subjective Pt evaluation today including: conversation w/ patient, physical exam, chart review, lab review, review of studies Found pt sitting up, watching tv, appears comfortable and calm. Says his breathing has "improved" and at present denies out right SOB. Denies any CP or other acute c/o. Says he would like to go home (lives alone in apt complex) and a friend could pick him up from the hospital. Constitutional: No fever, No weight loss Respiratory: + cough, + shortness of breath (improved per pt) Cardiovascular: No chest pain, No edema Abdomen: No pain, No nausea, No vomiting Medications Current Inpatient Medications Medications (Trade) Dose Ordered Sig/Evelyn Route Start Time Stop Time Status Last Admin Dose Admin Enoxaparin Sodium (Lovenox Inj) 40 mg Q24H SC 03/22/17 21:00 04/21/17 20:59 03/26/17 19:47 40 MG Acetaminophen (Tylenol Tab) 650 mg Q4H PRN PO 03/22/17 17:30 04/21/17 17:29 Magnesium Hydroxide (Milk Of Magnesia Susp) 30 ml Q12H PRN PO 03/22/17 17:30 04/21/17 17:29 Ondansetron HCl (Zofran Inj) 4 mg Q6H PRN IV 03/22/17 17:30 04/21/17 17:29 Polyethylene (Miralax Powder Packet) 17 gm DAILY PRN PO 03/22/17 17:30 04/21/17 17:29 03/24/17 21:02 17 GM Albuterol/ Ipratropium (Duoneb) 3 ml QIDR INH 03/22/17 20:00 04/21/17 19:59 03/27/17 07:03 3 ML Nicotine (Nicoderm Cq 14MG Patch) 1 patch QAM TD 03/22/17 17:30 04/21/17 17:29 03/26/17 08:26 1 PATCH Miscellaneous (Remove Nicoderm Patch) 1 ea HS N/A 03/22/17 21:00 04/21/17 20:59 03/26/17 19:47 1 EA Guaifenesin (Mucinex Contr Rel Tab) 600 mg Q12 PO 03/22/17 21:00 04/21/17 20:59 Future Hold 03/23/17 07:29 600 MG Roflumilast (Daliresp Tab) 500 mcg DAILY PO 03/23/17 09:00 04/22/17 08:59 03/26/17 08:25 500 MCG Rosuvastatin Calcium (Crestor Tab) 20 mg QAM PO 03/23/17 09:00 04/22/17 08:59 03/26/17 08:25 20 MG Temazepam (Restoril Cap) 15 mg HS PRN PO 03/22/17 17:30 04/21/17 17:29 Tiotropium [place] (Spiriva Handihaler Inhaler) 1 puff DAILY INH 03/23/17 09:00 04/22/17 08:59 03/26/17 08:24 1 PUFF Miscellaneous Information (Order Awaiting Action) 1 ea QS N/A 03/23/17 00:00 04/22/17 00:00 Mirtazapine (Remeron Tab) 30 mg HS PO 03/22/17 21:00 04/21/17 20:59 03/26/17 19:46 30 MG Olanzapine (Zyprexa Tab) 15 mg DAILY PO 03/23/17 09:00 04/22/17 08:59 03/26/17 08:25 15 MG Doxepin HCl (Sinequan Cap) 150 mg HS PO 03/22/17 21:00 04/21/17 20:59 03/26/17 19:47 150 MG Miscellaneous Information (Order Awaiting Action) 1 ea QS N/A 03/23/17 00:00 04/22/17 00:00 Bisacodyl (Dulcolax Tab) 5 mg DAILY PO 03/22/17 18:15 04/21/17 18:14 03/26/17 08:25 5 MG Metoprolol Tartrate (Lopressor Iv) 5 mg Q4 PRN IV 03/22/17 18:30 04/21/17 18:29 Insulin Aspart (novoLOG ASPART) SLIDING SCALE G... ACHS SC 03/25/17 16:15 04/24/17 16:14 03/27/17 07:45 5 UNITS Insulin Glargine (Lantus Solostar Pen) 10 units BID SC 03/25/17 21:00 04/24/17 20:59 03/26/17 21:12 10 UNITS Prednisone (PredniSONE TAB) 60 mg DAILY PO 03/26/17 09:00 04/25/17 08:59 03/26/17 09:23 60 MG Amoxicillin/ Clavulanate Potassium (Augmentin Tab) 875 mg BIDM PO 03/26/17 16:45 03/28/17 23:59 03/27/17 07:36 875 MG Objective Vital Signs Date Time Temp Pulse Resp B/P (MAP) Pulse Ox O2 Delivery O2 Flow Rate FiO2 03/27/17 08:19 36.9 116 20 122/89 (100) 93 Nasal Cannula 1.0 03/27/17 07:05 36.5 98 19 139/93 (108) 95 03/27/17 07:04 106 22 92 Room Air 03/27/17 04:00 Nasal Cannula 1.0 03/27/17 03:48 36.5 92 20 122/83 (96) 95 Nasal Cannula 2.0 03/27/17 00:00 36.4 98 18 119/81 (94) 95 Nasal Cannula 2.0 03/26/17 23:25 Nasal Cannula 1.0 03/26/17 20:05 95 Nasal Cannula 1.0 03/26/17 19:35 36.8 110 18 131/66 (87) 92 03/26/17 18:47 109 22 92 Room Air 03/26/17 16:04 36.8 103 18 126/85 (99) 98 03/26/17 16:00 91 Nasal Cannula 1.0 03/26/17 15:08 101 18 92 Nasal Cannula 2.0 03/26/17 12:06 36.6 98 18 114/86 (95) 93 Room Air 03/26/17 12:00 92 Nasal Cannula 1.0 03/26/17 11:26 91 18 93 Room Air Laboratory Results 03/26/17 09:24 Red Blood Count 4.25, Mean Corpuscular Volume 101.9, Mean Corpuscular Hemoglobin 33.2, Mean Corpuscular Hemoglobin Concent 32.6, Mean Platelet Volume 10.3, Neutrophils (%) (Auto) 86.7, Lymphocytes (%) (Auto) 6.9, Monocytes (%) ( Auto) 5.3, Eosinophils (%) (Auto) 0.0, Basophils (%) (Auto) 0.1, Neutrophils # ( Auto) 13.05, Lymphocytes # (Auto) 1.04, Monocytes # (Auto) 0.80, Eosinophils # ( Auto) 0.00, Basophils # (Auto) 0.01 03/26/17 09:24 03/27/17 05:32 Test 03/26/17 09:24 03/27/17 05:32 03/27/17 06:59 White Blood Count 15.05 K/uL (4.8-10.8) Red Blood Count 4.25 M/uL (4.7-6.1) Hemoglobin 14.1 g/dL (14.0-18.0) Hematocrit 43.3 % (42-52) Mean Corpuscular Volume 101.9 fL (80-100) Mean Corpuscular Hemoglobin 33.2 pg (25-34) Mean Corpuscular Hemoglobin Concent 32.6 g/dl (32-36) Platelet Count 212 K/uL (130-400) Mean Platelet Volume 10.3 fL (7.4-10.4) Neutrophils (%) (Auto) 86.7 % Lymphocytes (%) (Auto) 6.9 % Monocytes (%) (Auto) 5.3 % Eosinophils (%) (Auto) 0.0 % Basophils (%) (Auto) 0.1 % Neutrophils # (Auto) 13.05 K/uL (1.4-6.5) Lymphocytes # (Auto) 1.04 K/uL (1.2-3.4) Monocytes # (Auto) 0.80 K/uL (0.11-0.59) Eosinophils # (Auto) 0.00 K/uL (0-0.5) Basophils # (Auto) 0.01 K/uL (0-0.2) RDW Standard Deviation 57.6 fL (36.4-46.3) RDW Coefficient of Variation 15.4 % (11.5-14.5) Immature Granulocyte % (Auto) 1.0 % Immature Granulocyte # (Auto) 0.15 K/uL (0.00-0.02) Anion Gap 5.0 mmol/L (3-11) BUN/Creatinine Ratio 21.9 (10-20) Calcium Level 9.0 mg/dl (8.5-10.1) Vancomycin Level Trough 18.2 mcg/ml (SEE COMMENT) Est Creatinine Clear Calc Drug Dose 96.7 ml/min Estimated GFR () 112.5 Estimated GFR (Non- 97.1 Bedside Glucose 90 mg/dl (70-99) Assessment and Plan 62 yo M with PMHx of advanced COPD, bronchietasis, chronic tobacco smoker of 0.5 -1 ppd x 45 years, and sensorineural hearing loss, 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 COPD Exacerbation secondary to PNA: Back on 30Aug, was placed on levaquin 500 mg daily x7d and prednisone taper x 8d. No reported sx improvement. 13Sep CTA noted no evidence of PE but a right base infiltrate concerning for PNA. Pt was started on zosyn and vancomycin empirically. Also started on pulmonary toilet with duonebs, solumedrol, Spiriva, and daliresp. Echocardiogram on 16Sep was grossly normal. Stopped vancomycin and zosyn on 17Sep. Gradually pt has noted improvement in symptoms. Most of inpt stay has only required 2-3 L oxygen via NC. - Ongoing leukocytosis noted, may be due to steroids. - 16Sep: Pulmonology recommended steroid taper, which was started via solumedrol 60 mg IV q12h then prednisone 60 mg daily. 17Sep note recd taper by 5 mg daily until finished. Pulm signed off 17Sep. - IV abx d/chandana. 17Sep started on Augmentin 875 mg BID. - 13Sep MRSA nasal swab negative, 13Sep BCx x 2 pending, but no growth as of 17Sep, 15Sep Sputum AFB noted acid fast strain with mycobacterial culture pending., 17Sep Sputum cx pending. The lab from 13 Sep & 15Sep sputum culture were cancelled. - 18Sep noted to have room SpO2 of 89-92% with ambulation. - Pt has a hx of EVE and may benefit from using CPAP at night. - Pt follows with Evangelina JACKSON) as an outpatient in the pulmonary office , will consult Pulmonary team for further recommendations. Tachycardia: Noted on admit. EKG on 13Sep was sinus tachy 102 without other acute changes. TnI x 3 negative. CTA did not show evidence of PE. ? sec to underlying pul status and ?anxiety. follow. Bipolar disorder: - Patient takes Trintellix 10 mg daily, will ask him to bring supply from home as this is not available as an inpatient - Continue olanzapine 15 mg daily - Follows with Dr. Veras at [facility] [id number], and was seen in office 1 month ago. Insomnia: - Continue doxepin 150 mg QHS, mirtazapine 30 mg QHS, and temazepam 15 mg QHS prn ? Constipation: - Ordered dulcolax tabs, MiraLAX, and milk of magnesia when necessary Hyperlipidemia: - Continue Crestor 20 mg daily Disposition: Patient from home, lives alone. DVT prophylaxis: Heparin, teds, SCDs CODE STATUS: Full code Resident Tracking Resident Involvement: Resident Care Provided Care Provided: Adult Hospital Medicine (inpt rounds) Reviewed: Pt Seen/Exam by Me History breathing better wanting to go home. Constitutional: denies: fever Respiratory: positive: short of breath (improving since admission) Cardiovascular: denies chest pain Gastrointestinal/Abdominal: negative: abdominal pain General Appearance: mild distress Respiratory: respiratory distress, decreased breath sounds Cardiovascular: regular rate, rhythm Neurologic/Psychiatric: alert, oriented x 3 Skin Characteristics: warm/dry Assessment/Plan Resident Physician Supervision Note: I was present with Dr. Whipple in bedside. I verified the whitfield history and physical, reviewed labs and image studies, discussed the case with the resident and agree with the findings and care plan.
[2017-03-27 06:26] LABS: CREATININE 0.8 mg/dl (0.60-1.40)
[2017-03-27] MEDS: ALBUT/IPRATROP 3MG/0.5MG NEB 3 ML VIAL INH SCH ×4 (07:03→18:59)
[2017-03-27] MEDS: AMOXICILLIN/CLAVULANATE TAB 875 MG TAB PO SCH ×2 (07:36→17:22)
[2017-03-27] MEDS: INSULIN ASPART 100 UNITS/ML 3 ML PEN SC SCH ×4 (07:45→21:00)
[2017-03-27] MEDS: TRINTELLIX: ORDER AWAITING ACTION SCH ×2 (08:00→16:00)
[2017-03-27] MEDS: BISACODYL 5 MG TABEC PO SCH (08:46)
[2017-03-27] MEDS: ROSUVASTATIN CALCIUM 20 MG TAB PO SCH (08:47)
[2017-03-27] MEDS: OLANZAPINE 10 MG TAB PO SCH (08:48)
[2017-03-27] MEDS: ROFLUMILAST 500 MCG TAB PO SCH (08:49)
[2017-03-27] MEDS: NICOTINE 14 MG/24 HR TDSY TD SCH (08:50)
[2017-03-27] MEDS: INSULIN GLARGINE SOLOSTAR 100 UNITS/ML 3 ML PEN SC SCH ×2 (08:53→21:00)
[2017-03-27] MEDS: TIOTROPIUM BROMIDE 5 PUFF/90 MCG INH INH SCH (12:30)
--- NOTE | 2017-03-27 15:27 | Discharge Summary ---
Discharge Summary Date of Service Mar 27, 2017. (Josh. Whipple M.D.) Discharge Summary Admission Date: Mar 22, 2017 at 17:26 Discharge Disposition: Home Principal Diagnosis: COPD exacerbation Problems/Secondary Diagnoses: - Community acquired pneumonia - Tachycardia - Bilateral supraclavicular soft tissue swelling Immunizations: Have You Had Influenza Vaccine: No History of Tetanus Vaccine?: No History of Pneumococcal: No History of Hepatitis B Vaccine: No Procedures: [id number] CXR two view: FINDINGS: Mild chronic interstitial change. No focal infiltrates. Diaphragms smooth. Lungs otherwise appear clear. IMPRESSION: Improved exam compared to the prior study. Mild chronic baseline interstitial change. [id number] CTA chest for PE 1. No evidence for pulmonary embolus. 2. Mild interstitial and peribronchial prominence. 3. Focal infiltrate right base [id number] BILATERAL SUPRACLAVICULAR ULTRASOUND No sonographic abnormality within the bilateral supraclavicular locations. [id number] CXR two view: Emphysema and stable interstitial thickening. No acute parenchymal consolidation. Blunting of the right posterior costophrenic angle. A trace effusion cannot be excluded. Consultations: [id number] Pulmonology: At the current time I would continue patient patient has severe COPD which is most likely exacerbated from right lower lobe pneumonia and failing outpatient empiric antibiotic therapy. Blood cultures are negative to date, sputum cultures are pending. He still has persistent wheezes and tachypnea--he improving. Continue supplemental oxygen to maintain SaO2 above 92%. Patient does have history of EVE so consider CPAP at night. If patient has worsened work of breathing can give BIPAP. Continue with Duonebs q6h, Spiriva and Daliresp. Patient now switched to oral prednisone 60 mg, which should be tapered by 5 mg dailiy until finished. Continue with aggressive chest PT, flutter valve. Continue with nicotine patch. I will sign off case today. Please reconsult if you have any other further questions or concerns. (Josh. Whipple M.D.) Medication Reconciliation New Medications: Prednisone (Prednisone) 5 Mg Tab 5 MG PO UD for 11 Days, #66 PKT Start at 11 tablets every day starting on Monday. Take one less tablet every day (for example, on MondayApr 01 take 8 tablets; on Wednesday Sep 27 take 4 tablets) until complete. Amoxicillin & Pot Clavulanate (Amoxicillin/Clavulanate P) 1 Tab Tab 875 MG PO BIDM for 4 Days, #8 TAB 0 Refills as antibiotic Nicotine (Nicoderm Cq 14MG Patch) 14 Mg/24 Hr Dis 1 PATCH TD QAM for 14 Days, #14 PATCH 0 Refills Continued Medications: Albuterol Sulfate (Proair Hfa) 108 Mcg/ Aer 2 PUFF INH QID PRN Fluticasone Furoate-Vilanterol (Breo Ellipta 200-25 Mcg/INH) 1 Inh Inh 1 PUFF INH DAILY Mirtazapine Soltab (Remeron Soltab) 30 Mg Soltab 30 MG PO HS, TAB Multivitamin (Multivitamin) Tab 1 TAB PO DAILY, TAB Olanzapine (Zyprexa) 15 Mg Tab 15 MG PO DAILY, TAB Roflumilast (Daliresp) 500 Mcg Tab 1 TAB PO DAILY for 90 Days, #90 TAB 3 Refills Rosuvastatin Calcium (Crestor) 20 Mg Tab 20 MG PO QAM, TAB Temazepam (Restoril) 30 Mg Cap 15 MG PO HS PRN for Sleep, CAP Tiotropium [place] (Spiriva Handihaler) 18 Mcg/ Aerp 1 CAP INH DAILY, INHALER Vortioxetine HBr (Trintellix) 10 Mg Tab 10 MG PEG DAILY [doxepin] () 150 MG PO DAILY [ipratropium/alb] () 3 ML INH DIRECTED Discharge Exam Review of Systems: Constitutional: No fever, No chills Respiratory: + cough, + shortness of breath, No sputum Cardiovascular: No chest pain, No edema Abdomen: No nausea, No vomiting, No diarrhea Physical Exam: General Appearance: no apparent distress Neck: + pertinent finding (bilateral supraclavicular soft tissue swelling, unchanged) Respiratory/Chest: no respiratory distress, + wheezing (expiratory > inspiratory wheezing throughout) Cardiovascular: no edema, no murmur, + tachycardia (borderline tachy, regular) Abdomen / GI: non tender, soft, no organomegaly Extremities: no calf tenderness, no pedal edema (Josh. Whipple M.D.) breathing much improved Review of Systems: Constitutional: No fever Respiratory: No shortness of breath Cardiovascular: No chest pain Abdomen: No pain Physical Exam: General Appearance: no apparent distress Respiratory/Chest: no respiratory distress, + decreased breath sounds Cardiovascular: regular rate, rhythm Abdomen / GI: normal bowel sounds, non tender, soft Neurologic/Psychiatric: alert, oriented x 3 Skin: warm/dry (Ruchi Jameson M.D.) Hospital Course History of Present Illness as noted in admission physical on 22Mar2017 This is a 62 yo M with PMHx of advanced COPD, bronchietasis, chronic tobacco smoker of 0.5-1 ppd x 45 years, and sensorineural hearing loss, 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 He was recently seen in her office on March 08 and was placed on Levaquin 500 daily x 7 days and prednisone taper for 8 days. His symptoms have not improved, therefore he went back to the office for an acute sick visit and was referred to the hospitalist service as a direct admission. The patient reports he has been feeling short of breath for at least 2 weeks now, with cough productive of yellow sputum. He is unable to walk more than 1 block before becoming acutely short of breath. He denies hemoptysis. The patient is a chronic smoker and admits to smoking at least 4 cigarettes today. The patient is interested in smoking cessation. He did have a DuoNeb treatment while in the office, and reports that that helped a little bit. While at the office today when he was seeing Evangelina Robles, she brought to his attention swelling around his neck. He reports that this has been present for some time now but it has worsened within the past week, it is nonpainful to touch, no reddness or warmth around the area. 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 COPD exacerbation / PNA: Hx COPD, current sx likely related to same. Back on 30Aug, was placed on levaquin 500 mg daily x7d and prednisone taper x 8d. No reported sx improvement. 13Sep CTA noted no evidence of PE but a right base infiltrate concerning for PNA. Pulmonary consult placed, appreciate their recs. Pt was started on zosyn and vancomycin empirically. Also started on pulmonary toilet with duonebs, solumedrol, Spiriva, and daliresp. Echocardiogram on 16Sep was grossly normal. 13Sep MRSA nasal swab negative. 13Sep BCx x 2 noted no growth (final). 17Sep stopped vancomycin and zosyn, started on Augmentin 875 mg BID. 16Sep: Pulmonology recommended steroid taper, which was started via solumedrol 60 mg IV q12h then prednisone 60 mg daily. 17Sep note recd taper by 5 mg daily until finished. Pulm signed off 17Sep. Gradually pt has noted improvement in symptoms. Most of inpt stay has only required 2-3 L oxygen via NC. On 18Sep, ambulatory pulse-ox noted SpO2 of 89-92% on room air. Pt denies hx of prior home oxygen use, so if still low on recheck, will likely need setup for the same upon d/c. - Some ongoing leukocytosis noted, improving, which may be due to steroids. [ ] 15Sep Sputum AFB noted acid fast strain with mycobacterial culture pending. [ ] 17Sep Sputum cx pending. The lab from 13 Sep & 15Sep sputum culture were cancelled. - Pt has a hx of EVE and may benefit from CPAP at night. - Pt follows with Evangelina JACKSON) as an outpatient in the pulmonary office. Tachycardia: Noted on admit. EKG on 13Sep was sinus tachy 102 without other acute changes. TnI x 3 negative. CTA did not show evidence of PE. Gave IVF without much change. May be due to fighting ongoing pulm infection (i.e. respiratory demand) vs pulmonary HTN vs underlying cardiac disease vs ongoing in -hospital stressors (e.g. lack of sleep, medications). Can f/u with PCM to see if still tachycardic upon d/c. Bipolar disorder: - Patient takes Trintellix 10 mg daily, though pt has not brought in home supply (as this is not available as an inpatient) during this hospitalization. - Continue olanzapine 15 mg daily. - Follows with Dr. Veras at [facility] q 8 weeks, and was seen in office approx. around February 2017. Insomnia: - Continue doxepin 150 mg QHS, mirtazapine 30 mg QHS, and temazepam 15 mg QHS prn Hyperlipidemia: - Continue Crestor 20 mg daily Disposition: Patient from home, lives alone. This includes examination of the patient, discharge planning, medication reconciliation, and communication with other providers. (Josh. Whipple M.D.) Resident Physician Supervision Note: I was present with Dr. Whipple in bedside. I verified the whitfield history and physical, reviewed labs and image studies, discussed the case with the resident and agree with the findings and care plan. Total Time Spent: Greater than 30 minutes (35) (Ruchi Jameson M.D.) Discharge Instructions Please refer to the electronic Patient Visit Report (Discharge Instructions) for additional information. (Josh. Whipple M.D.) Follow-Up - With PCM for ongoing management of his COPD, monitoring for tachycardia resolution, and further evaluation of supraclavicular soft tissue swelling. - With pulmonology for ongoing COPD management. (Josh. Whipple M.D.) Additional Copies To Bro Thomas PA-C
[2017-03-27] MEDS: ENOXAPARIN 40 MG/0.4 ML SYR SC SCH (20:36)
[2017-03-27] MEDS: DOXEPIN HCL 50 MG CAP PO SCH (20:36)
[2017-03-27] MEDS: MIRTAZAPINE TAB 15 MG TAB PO SCH (20:37)
[2017-03-28 02:49] VITALS: BP 118/69; PULSE 91; TEMP 36.7; O2SAT 95
--- NOTE | 2017-03-28 05:29 | Family Medicine Progress Note ---
Progress Note Date of Service Mar 28, 2017. Subjective Pt evaluation today including: conversation w/ patient, physical exam, chart review, lab review, review of studies Found pt sitting up, with neb on, speaking easily. Says no acute concerns, denies CP, acute SOB, or overnight issues. Constitutional: No fever, No weight loss Respiratory: + cough, + wheezing, + shortness of breath Cardiovascular: No chest pain, No edema Abdomen: No nausea, No vomiting, No diarrhea Medications Current Inpatient Medications Medications (Trade) Dose Ordered Sig/Evelyn Route Start Time Stop Time Status Last Admin Dose Admin Enoxaparin Sodium (Lovenox Inj) 40 mg Q24H SC 03/22/17 21:00 04/21/17 20:59 03/27/17 20:36 40 MG Acetaminophen (Tylenol Tab) 650 mg Q4H PRN PO 03/22/17 17:30 04/21/17 17:29 Magnesium Hydroxide (Milk Of Magnesia Susp) 30 ml Q12H PRN PO 03/22/17 17:30 04/21/17 17:29 Ondansetron HCl (Zofran Inj) 4 mg Q6H PRN IV 03/22/17 17:30 04/21/17 17:29 Polyethylene (Miralax Powder Packet) 17 gm DAILY PRN PO 03/22/17 17:30 04/21/17 17:29 03/24/17 21:02 17 GM Albuterol/ Ipratropium (Duoneb) 3 ml QIDR INH 03/22/17 20:00 04/21/17 19:59 03/28/17 07:01 3 ML Nicotine (Nicoderm Cq 14MG Patch) 1 patch QAM TD 03/22/17 17:30 04/21/17 17:29 03/27/17 08:50 1 PATCH Miscellaneous (Remove Nicoderm Patch) 1 ea HS N/A 03/22/17 21:00 04/21/17 20:59 03/27/17 20:37 1 EA Guaifenesin (Mucinex Contr Rel Tab) 600 mg Q12 PO 03/22/17 21:00 04/21/17 20:59 Future Hold 03/23/17 07:29 600 MG Roflumilast (Daliresp Tab) 500 mcg DAILY PO 03/23/17 09:00 04/22/17 08:59 03/27/17 08:49 500 MCG Rosuvastatin Calcium (Crestor Tab) 20 mg QAM PO 03/23/17 09:00 04/22/17 08:59 03/27/17 08:47 20 MG Temazepam (Restoril Cap) 15 mg HS PRN PO 03/22/17 17:30 04/21/17 17:29 Tiotropium [place] (Spiriva Handihaler Inhaler) 1 puff DAILY INH 03/23/17 09:00 04/22/17 08:59 03/27/17 12:30 1 PUFF Miscellaneous Information (Order Awaiting Action) 1 ea QS N/A 03/23/17 00:00 04/22/17 00:00 Mirtazapine (Remeron Tab) 30 mg HS PO 03/22/17 21:00 04/21/17 20:59 03/27/17 20:37 30 MG Olanzapine (Zyprexa Tab) 15 mg DAILY PO 03/23/17 09:00 04/22/17 08:59 03/27/17 08:48 15 MG Doxepin HCl (Sinequan Cap) 150 mg HS PO 03/22/17 21:00 04/21/17 20:59 03/27/17 20:36 150 MG Miscellaneous Information (Order Awaiting Action) 1 ea QS N/A 03/23/17 00:00 04/22/17 00:00 Bisacodyl (Dulcolax Tab) 5 mg DAILY PO 03/22/17 18:15 04/21/17 18:14 03/27/17 08:46 5 MG Metoprolol Tartrate (Lopressor Iv) 5 mg Q4 PRN IV 03/22/17 18:30 04/21/17 18:29 Insulin Aspart (novoLOG ASPART) SLIDING SCALE G... ACHS SC 03/25/17 16:15 04/24/17 16:14 03/27/17 21:00 2 UNITS Insulin Glargine (Lantus Solostar Pen) 10 units BID SC 03/25/17 21:00 04/24/17 20:59 03/27/17 21:00 10 UNITS Prednisone (PredniSONE TAB) 60 mg DAILY PO 03/26/17 09:00 04/25/17 08:59 03/27/17 08:46 60 MG Amoxicillin/ Clavulanate Potassium (Augmentin Tab) 875 mg BIDM PO 03/26/17 16:45 03/28/17 23:59 03/27/17 17:22 875 MG Objective Vital Signs Date Time Temp Pulse Resp B/P (MAP) Pulse Ox O2 Delivery O2 Flow Rate FiO2 03/28/17 07:28 36.4 102 18 123/94 (104) 92 Room Air 03/28/17 07:01 101 18 91 Room Air 03/28/17 04:00 Room Air 03/28/17 02:49 36.7 91 17 118/69 (85) 95 Room Air 03/28/17 00:00 Room Air 03/27/17 23:25 36.5 106 20 107/72 (84) 92 Room Air 03/27/17 20:00 Room Air 03/27/17 19:26 36.7 112 17 110/81 (91) 93 Room Air 03/27/17 18:59 103 18 93 Room Air 03/27/17 16:00 Room Air 03/27/17 15:58 36.9 111 22 113/87 (96) 92 Room Air 03/27/17 15:16 106 18 98 Room Air 03/27/17 12:52 36.9 110 20 108/71 (83) 91 Room Air 03/27/17 12:00 Room Air 03/27/17 11:08 108 18 97 Room Air 03/27/17 11:00 36.4 99 19 118/79 (92) 92 Room Air 03/27/17 08:19 36.9 116 20 122/89 (100) 93 Nasal Cannula 1.0 03/27/17 08:00 Nasal Cannula 1.0 Physical Exam General Appearance: no apparent distress Neck: + pertinent finding (bilateral supraclavicular soft tissue swelling, unchanged) Respiratory/Chest: no respiratory distress, + wheezing (expiratory > inspiratory diffuse wheezing throughout) Cardiovascular: no edema, no murmur, + tachycardia (regular) Abdomen: normal bowel sounds, non tender, soft Extremities: no pedal edema Laboratory Results 03/28/17 06:10 Red Blood Count 4.48, Mean Corpuscular Volume 102.5, Mean Corpuscular Hemoglobin 32.8, Mean Corpuscular Hemoglobin Concent 32.0, Mean Platelet Volume 10.3, Neutrophils (%) (Auto) 73.1, Lymphocytes (%) (Auto) 17.7, Monocytes (%) ( Auto) 6.0, Eosinophils (%) (Auto) 0.9, Basophils (%) (Auto) 0.2, Neutrophils # ( Auto) 8.17, Lymphocytes # (Auto) 1.98, Monocytes # (Auto) 0.67, Eosinophils # ( Auto) 0.10, Basophils # (Auto) 0.02 03/28/17 06:10 Test 03/28/17 06:10 03/28/17 06:42 White Blood Count 11.18 K/uL (4.8-10.8) Red Blood Count 4.48 M/uL (4.7-6.1) Hemoglobin 14.7 g/dL (14.0-18.0) Hematocrit 45.9 % (42-52) Mean Corpuscular Volume 102.5 fL (80-100) Mean Corpuscular Hemoglobin 32.8 pg (25-34) Mean Corpuscular Hemoglobin Concent 32.0 g/dl (32-36) Platelet Count 247 K/uL (130-400) Mean Platelet Volume 10.3 fL (7.4-10.4) Neutrophils (%) (Auto) 73.1 % Lymphocytes (%) (Auto) 17.7 % Monocytes (%) (Auto) 6.0 % Eosinophils (%) (Auto) 0.9 % Basophils (%) (Auto) 0.2 % Neutrophils # (Auto) 8.17 K/uL (1.4-6.5) Lymphocytes # (Auto) 1.98 K/uL (1.2-3.4) Monocytes # (Auto) 0.67 K/uL (0.11-0.59) Eosinophils # (Auto) 0.10 K/uL (0-0.5) Basophils # (Auto) 0.02 K/uL (0-0.2) RDW Standard Deviation 57.7 fL (36.4-46.3) RDW Coefficient of Variation 15.3 % (11.5-14.5) Immature Granulocyte % (Auto) 2.1 % Immature Granulocyte # (Auto) 0.24 K/uL (0.00-0.02) Anion Gap 5.0 mmol/L (3-11) Est Creatinine Clear Calc Drug Dose 97.0 ml/min Estimated GFR () 113.1 Estimated GFR (Non- 97.6 BUN/Creatinine Ratio 29.1 (10-20) Calcium Level 8.5 mg/dl (8.5-10.1) Bedside Glucose 88 mg/dl (70-99) Assessment and Plan 62 yo M with PMHx of advanced COPD, bronchietasis, chronic tobacco smoker of 0.5 -1 ppd x 45 years, and sensorineural hearing loss, 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 COPD exacerbation / PNA: Hx COPD, current sx likely related to same. Back on 30Aug, was placed on levaquin 500 mg daily x7d and prednisone taper x 8d. No reported sx improvement. 13Sep CTA noted no evidence of PE but a right base infiltrate concerning for PNA. Pulmonary consult placed, appreciate their recs. Pt was started on zosyn and vancomycin empirically. Also started on pulmonary toilet with duonebs, solumedrol, Spiriva, and daliresp. Echocardiogram on 16Sep was grossly normal. 17Sep stopped vancomycin and zosyn , started on Augmentin 875 mg BID. 16Sep: Pulmonology recommended steroid taper , which was started via solumedrol 60 mg IV q12h then prednisone 60 mg daily. 17Sep note recd taper by 5 mg daily until finished. Pulm signed off 17Sep. Gradually pt has noted improvement in symptoms. Most of inpt stay has only required 2-3 L oxygen via NC. On 18Sep, ambulatory pulse-ox noted SpO2 of 89-92 % on room air. Pt denies hx of prior home oxygen use, so if still low on recheck, will likely need setup for the same upon d/c. - Some ongoing leukocytosis noted, improving, which may be due to steroids. - 13Sep MRSA nasal swab negative - 13Sep BCx x 2 noted no growth (final). [ ] 15Sep Sputum AFB noted acid fast strain with mycobacterial culture pending. [ ] 17Sep Sputum cx pending. The lab from 13 Sep & 15Sep sputum culture were cancelled. - Pt has a hx of EVE and may benefit from CPAP at night. - Consider out of bed to chair and ambulation with assistance. - Pt follows with Evangelina JACKSON) as an outpatient in the pulmonary office. Tachycardia: Noted on admit. EKG on 13Sep was sinus tachy 102 without other acute changes. TnI x 3 negative. CTA did not show evidence of PE. Gave IVF without much change. May be due to fighting ongoing pulm infection (i.e. respiratory demand) vs pulmonary HTN vs underlying cardiac disease vs ongoing in -hospital stressors (e.g. lack of sleep, medications). Can f/u with PCM to see if still tachycardic upon d/c. Bipolar disorder: - Patient takes Trintellix 10 mg daily, though pt has not brought in home supply (as this is not available as an inpatient) during this hospitalization. - Continue olanzapine 15 mg daily. - Follows with Dr. Veras at [facility] q 8 weeks, and was seen in office approx. around February 2017. Insomnia: - Continue doxepin 150 mg QHS, mirtazapine 30 mg QHS, and temazepam 15 mg QHS prn Hyperlipidemia: - Continue Crestor 20 mg daily Disposition: Patient from home, lives alone. DVT prophylaxis: Heparin, teds, SCDs CODE STATUS: Full code Will discuss all the above on attending rounds this morning. GAYE, PGY1 Oncology Account Specialist Tracking Resident Involvement: Resident Care Provided Care Provided: Adult Hospital Medicine (inpt rounds)
[2017-03-28 06:42] LABS: BASO % 0.2 %; BASO ABS # 0.02 K/uL (0-0.2); COMPLETE YES; EOS % 0.9 %; HEMATOCRIT 45.9 % (42-52); IG% 2.1 %; LYMPH % 17.7 %; LYMPH ABS # 1.98 K/uL (1.2-3.4); MEAN CELL VOLUME 102.5 fL (80-100); MEAN CORPUSCULAR HEMOGLOBIN 32.8 pg (25-34); MEAN PLATELET VOLUME 10.3 fL (7.4-10.4); NEUT % 73.1 %; PLATELET COUNT 247 K/uL (130-400); RED BLOOD COUNT 4.48 M/uL (4.7-6.1); WHITE BLOOD COUNT 11.18 K/uL (4.8-10.8)
[2017-03-28 06:59] LABS: BUN/CREATININE RATIO 29.1 (10-20); CALCIUM 8.5 mg/dl (8.5-10.1); CREATININE 0.79 mg/dl (0.60-1.40); POTASSIUM 3.9 mmol/L (3.5-5.1)
[2017-03-28 07:01] VITALS: PULSE 101; O2SAT 91
[2017-03-28] MEDS: ALBUT/IPRATROP 3MG/0.5MG NEB 3 ML VIAL INH SCH ×2 (07:01→11:15)
[2017-03-28] MEDS: TRINTELLIX: ORDER AWAITING ACTION SCH ×2 (07:04)
[2017-03-28 07:28] VITALS: BP 123/94; PULSE 102; TEMP 36.4; O2SAT 92
[2017-03-28] MEDS: AMOXICILLIN/CLAVULANATE TAB 875 MG TAB PO SCH (08:12)
[2017-03-28] MEDS: NICOTINE 14 MG/24 HR TDSY TD SCH (08:13)
[2017-03-28] MEDS: ROFLUMILAST 500 MCG TAB PO SCH (08:13)
[2017-03-28] MEDS: OLANZAPINE 10 MG TAB PO SCH (08:13)
[2017-03-28] MEDS: BISACODYL 5 MG TABEC PO SCH (08:13)
[2017-03-28] MEDS: ROSUVASTATIN CALCIUM 20 MG TAB PO SCH (08:13)
[2017-03-28] MEDS: TIOTROPIUM BROMIDE 5 PUFF/90 MCG INH INH SCH (08:14)
[2017-03-28] MEDS: INSULIN ASPART 100 UNITS/ML 3 ML PEN SC SCH ×2 (08:16→11:52)
[2017-03-28] MEDS: INSULIN GLARGINE SOLOSTAR 100 UNITS/ML 3 ML PEN SC SCH (08:17)
--- NOTE | 2017-03-28 08:45 | Discharge Instructions ---
Discharge Instructions Date of Service Mar 28, 2017. Admission Reason for Admission: Copd Exacerbation, Tachycardia Discharge Discharge Diagnosis / Problem: COPD exacerbation, tachycardia Discharge Goals Goal(s): Improve function, Increase independence Activity Recommendations Activity Limitations: per Instructions/Follow-up section . Instructions / Follow-Up Instructions / Follow-Up You were admitted for a COPD exacerbation. Try to limit your activity to what is tolerated without getting short of breath. - It is important that you follow up in the pulmonology clinic for ongoing management of your COPD. There are some pending labs that they can review at that appointment. - Please also follow up with your primary care provider for further evaluation of your other medical issues. - You were prescribed some Augmentin, an antibiotic, to complete while at home. - You were prescribed prednisone, an oral steroid, to complete. It is a taper, meaning the dose decreases daily over time. - You were prescribed a nicotine patch if you need it. Please return to the nearest emergency department if you have any acute or immediate difficulty breathing, new chest pains, or with any other worrisome symptoms. clinical appeals specialist [facility]: Follow up appointments arranged. Per my entry in the DC instructions - "Please, follow up with Bro Thomas PA-C on MondayMarch 31 at 12:45 pm. *If you need to change this appointment you can call his office at [phone]. Please, follow up with Evangelina Robles PA-C on MondayApril 05 at 3:15 pm. *This office is located in [address] of the [facility] - big building next to this hospital. If you need to change this appointment you can call the office at ." Current Hospital Diet Patient's current hospital diet: Diabetes Type 2 Diet Discharge Diet Recommended Diet: Diabetes Type 2 Diet Pending Studies Studies pending at discharge: yes List of pending studies: [ ] 15Sep Sputum AFB noted acid fast strain with mycobacterial culture pending. [ ] 17Sep Sputum cx pending. The lab from Mar & 15Sep sputum culture were cancelled. Laboratory Results Hemoglobin A1c Test 03/23/17 06:09 Range/Units Estimated Average Glucose 134 mg/dl Hemoglobin A1c 6.3 H 4.5-5.6 % Lipid Panel Test 03/23/17 06:09 Range/Units Triglycerides Level 221 H 0-150 mg/dl Cholesterol Level 231 H 0-200 mg/dl HDL Cholesterol 47 mg/dl Cholesterol/HDL Ratio 4.9 LDL Cholesterol, Calculated 140 mg/dl Medical Emergencies . Who to Call and When: Medical Emergencies: If at any time you feel your situation is an emergency, please call 911 immediately. . Non-Emergent Contact Non-Emergency issues call your: Primary Care Provider, Shipping Hand . . "Provider Documentation" section prepared by Trever Whipple. . VTE Core Measure Inpt VTE Proph given/why not?: Unfractionated heparin SQ, T.E.Mike. Oxanaings, SCD 's
[2017-03-28] MEDS ORDERED: NICO14DI5 TD (09:20)
[2017-03-28] MEDS ORDERED: PRED-301 PO (09:20)
[2017-03-28] MEDS ORDERED: AMOX1TAB43 PO (09:20)
[2017-03-28 10:37] VITALS: BP 114/77; PULSE 88; TEMP 36.4; O2SAT 92
[2017-03-28 11:15] VITALS: PULSE 98; O2SAT 92
[2017-03-28 14:25] VITALS: BP 114/77; PULSE 98; TEMP 36.4; O2SAT 92
== END 2017-03-28 15:11 | disposition home health service (06) | DRG 190 ==
LOC: C.2E 16:29 → UNDOADMIN 16:29 → C.2E 17:26
PROVIDERS: ADMIT Hospitalist; ATTEND Family Medicine
DX: J44.1 Chronic obstructive pulmonary disease with (acute) exacerbation (principal); J18.9 Pneumonia, unspecified organism; J44.0 Chronic obstructive pulmonary disease with (acute) lower respiratory infection; R00.0 Tachycardia, unspecified; F31.9 Bipolar disorder, unspecified; G47.00 Insomnia, unspecified; E78.5 Hyperlipidemia, unspecified; R59.9 Enlarged lymph nodes, unspecified; G47.33 Obstructive sleep apnea (adult) (pediatric); K59.00 Constipation, unspecified; H90.5 Unspecified sensorineural hearing loss; J39.8 Other specified diseases of upper respiratory tract; Z87.891 Personal history of nicotine dependence; Z79.52 Long term (current) use of systemic steroids; Z79.899 Other long term (current) drug therapy

== ENCOUNTER → 2017-09-07 | Outpatient (CLI) | payer OTHER ==
[~2017-09-07] MED LIST changes: +AMOX1TAB43 PO; +FLUT1INH7 INH; -FLUT220A INH; +NICO14DI5 TD; +ROFL1TAB5 PO; -SYMIN160 INH; -VORT10TA PO; +VORT10TA12 PEG
--- NOTE | 2017-09-07 11:39 | DIAGNOSTIC IMAGING REPORT ---
CHEST 2 VIEWS ROUTINE CLINICAL HISTORY: ADVANCED COPD, BRNOCHIECTASIS, COUGH COMPARISON STUDY: 03/24/2017 FINDINGS: Mild improvement in aeration both lung bases. Mild basilar chronic interstitial change. Minimal parenchymal scarring left lung base unchanged. Diaphragms are smooth. Mild emphysematous change considered stable. IMPRESSION: Stable mild emphysematous component. Mild improvement of the basilar interstitial changes described previously. No acute process. The above report was generated using voice recognition software. It may contain grammatical, syntax or spelling errors. Electronically signed by: Wilber Canales M.D. 09/07/2017 11:38 AM Dictated Date/Time: 09/07/2017 11:36 AM
[2017-09-07 12:16] LABS: BASO % 0.6 %; BASO ABS # 0.06 K/uL (0-0.2); EOS % 1.9 %; EOS ABS # 0.19 K/uL (0-0.5); HEMATOCRIT 47.5 % (42-52); HEMOGLOBIN 16.1 g/dL (14.0-18.0); IG# 0.06 K/uL (0.00-0.02); LYMPH ABS # 1.82 K/uL (1.2-3.4); MEAN CELL VOLUME 100.4 fL (80-100); MEAN CORPUSCULAR HGB CONC 33.9 g/dl (32-36); MEAN PLATELET VOLUME 10.5 fL (7.4-10.4); MONO % 7.2 %; MONO ABS # 0.73 K/uL (0.11-0.59); NEUT % 71.7 %; NEUT ABS # 7.25 K/uL (1.4-6.5); PLATELET COUNT 263 K/uL (130-400); RED CELL DISTRIBUTION WIDTH CV 14.2 % (11.5-14.5); RED CELL DISTRIBUTION WIDTH SD 52.5 fL (36.4-46.3); WHITE BLOOD COUNT 10.11 K/uL (4.8-10.8)
[2017-09-07 13:15] LABS: INFLUENZA A PCR Neg for Influ A (NEG); INFLUENZA B PCR Neg for Influ B (NEG)
[2017-09-07 13:35] LABS: ALBUMIN 4.3 gm/dl (3.4-5.0); ALT/SGPT 74 U/L (12-78); AST/SGOT 33 U/L (15-37); BLOOD UREA NITROGEN 9 mg/dl (7-18); CALCIUM 9.6 mg/dl (8.5-10.1); CARBON DIOXIDE 24 mmol/L (21-32); CREATININE 0.89 mg/dl (0.60-1.40); GLUCOSE 102 mg/dl (70-99); SODIUM 137 mmol/L (136-145)
[2017-09-07 13:38] LABS: ALKALINE PHOSPHATASE 115 U/L (45-117)
== END | disposition home or self-care (01) ==
LOC: C.RAD1850 11:12
PROVIDERS: ATTEND Physician Assistant
DX: J47.9 Bronchiectasis, uncomplicated (principal); J44.9 Chronic obstructive pulmonary disease, unspecified; R05 Cough

== ENCOUNTER → 2017-09-29 | Outpatient (CLI) | payer OTHER ==
[2017-09-29 12:21] LABS: BASO % 0.8 %; BASO ABS # 0.06 K/uL (0-0.2); EOS % 2.4 %; EOS ABS # 0.19 K/uL (0-0.5); HEMOGLOBIN 15.5 g/dL (14.0-18.0); IG# 0.07 K/uL (0.00-0.02); LYMPH % 17.3 %; LYMPH ABS # 1.35 K/uL (1.2-3.4); MEAN CELL VOLUME 102.6 fL (80-100); MEAN CORPUSCULAR HEMOGLOBIN 33.8 pg (25-34); MEAN PLATELET VOLUME 10.8 fL (7.4-10.4); MONO % 7.3 %; MONO ABS # 0.57 K/uL (0.11-0.59); NEUT % 71.3 %; NEUT ABS # 5.57 K/uL (1.4-6.5); PLATELET COUNT 213 K/uL (130-400); RED CELL DISTRIBUTION WIDTH CV 14.5 % (11.5-14.5); RED CELL DISTRIBUTION WIDTH SD 54.4 fL (36.4-46.3); WHITE BLOOD COUNT 7.81 K/uL (4.8-10.8)
[2017-09-29 12:26] LABS: BLOOD UREA NITROGEN 15 mg/dl (7-18); CALCIUM 9.1 mg/dl (8.5-10.1); CARBON DIOXIDE 26 mmol/L (21-32); CREATININE 0.81 mg/dl (0.60-1.40); GLUCOSE 110 mg/dl (70-99); SODIUM 137 mmol/L (136-145)
[2017-09-29 12:29] LABS: INR 0.9 (0.9-1.1)
== END | disposition home or self-care (01) ==
LOC: C.LAB1850 10:05
PROVIDERS: ATTEND Physician Assistant
DX: J47.9 Bronchiectasis, uncomplicated (principal)

== ENCOUNTER 2017-10-18 07:05 | Day surgery (SDC) | payer OTHER ==
--- NOTE | 2017-10-17 15:44 | History and Physical ---
History & Physical Date of Service Oct 17, 2017. History & Physical 62-year-old gentleman here for bronchoscopic evaluation refractory COPD/ bronchitis PMHx: chronic bronchitis/COPD, bronchiectasis, sleep apnea (non-compliant), and tobacco use. Prior records reviewed. includes: hyperlipidemia, current tobacco use (36-pack year, current variable: 1/2- 2ppd), h/o dust exposure . Patient established in the office 10/2014 post admission for COPD exacerbation. Following discharge he began Symbicort and PRN albuterol and has been prescribed Breo, Spiriva, and Incruse, and DaliResp past/current. Beginning in he noted progression of POWELL, wheeze and chronic productive daily cough. 2015 bronchoscopy + lavage of mucopurulent secretions throughout with evidence of chronic inflammation. No tracheal stenosis. Bacteria/fungal/AFB/cytology: negative. He tolerated this procedure well without symptomatic post-procedure relief. Additionally, he has struggled with CPAP compliance and his machine was discontinued. He was agreeable to re-trial and repeat PSG 06/2017 completed was diagnostic of sleep apnea - mild. Auto CPAP recommended and we will arrange today. Clinically, patient continues to struggle. He reports daily chronic cough and dyspnea. HE is smoking 1/2 ppd and plans to go to a smoking cessation group later this week. He is compliant with his inhalers. Last visit, he was prescribed an antibiotic and steroid for marked wheeze and congestion on exam however reports that this was not palliative. PFT 01/19/2016: FVC: 2.59/71 % (24 % change), FEV1: 1.36/46 % (17 % change), FEV1/FVC: 65 %, FEF 25-75 %: 0.5/16 % (4 % change), PS: 3.54/46 % (14 % change), FVC: 2.59/71 %, T.96/122 %, RV: 4.37/210 %, DLCO: 54 % Active Problems 1. Acid fast bacillus 2. Advanced COPD/bronchiectasis (FEV1: 46%) 3. Ataxia 4. Mild obstructive sleep apnea (auto Pap [id number]) 6. Depression 7. Embedded metal fragments 8. Excessive daytime sleepiness 10. Hyperlipidemia 11. Impacted cerumen of both ears 12. Insomnia 14. Seasonal allergies 15. Shortness of breath 17. SNHL (sensorineural hearing loss) 18. Tinnitus 19. Tobacco use 20. Tracheal stenosis 21. Tremor Past Medical History 1. History of alcoholism (F10.21) 2. History of candidiasis of mouth (Z86.19) 3. History of pneumonia (Z87.01) Surgical History 1. History of Ankle Surgery 2. History of Eye Surgery 3. History of Foot Surgery Right 4. History of Hernia Repair 5. History of Wrist Surgery Family History 1. Family history of alcoholism (Z81.1) 2. Family history of diabetes mellitus (Z83.3) 3. Family history of myocardial infarction (Z82.49) Social History Always uses seat belt Current every day smoker No alcohol use Single Current Meds 1. AeroChamber MV; Use with Albuterol Inhaler; 2. Breo Ellipta 200-25 MCG/INH Inhalation Aerosol Powder Breath Activated; inhale 1 puff daily 3. Daliresp 500 MCG Oral Tablet; TAKE 1 TABLET DAILY 4. Ipratropium-Albuterol 0.5-2.5 (3) MG/3ML Inhalation Solution Q4 PRN 5. Calcium TABS 6. Incruse Ellipta 62.5 MCG/INH Inhalation Aerosol Powder Breath once daily 7. Rosuvastatin Calcium 20 MG Oral Tablet; Take 1 tablet daily; 8. Zonisamide 100 MG Oral Capsule; TAKE 2 CAPSULE Bedtime; 9. Brintellix 10 MG TABS; Take 1 tablet daily; 10. Doxepin HCl - 150 MG Oral Capsule; TAKE 1 CAPSULE DAILY; 11. Meloxicam 15 MG Oral Tablet; TAKE 1 TABLET DAILY WITH FOOD; 12. Mirtazapine 30 MG Oral Tablet; TAKE 1 TABLET AT BEDTIME; 13. Multi-Day Vitamins TABS; TAKE 1 TABLET DAILY; 14. OLANZapine 15 MG Oral Tablet; TAKE 1 TABLET DAILY 15. Restoril 15 MG Oral Capsule Allergies 1. No Known Drug Allergies Immunizations PCV --- Series1: -Jun-2015 Vital Signs Heart Rate: 105 O2 Saturation: 95, RA Temperature: 97.9 F Respiration: 20 Blood Pressure: 130 / 82 Recorded: 29Sep2017 09:00AM Weight: 174 lb 5 oz BMI Calculated: 29.92 BSA Calculated: 1.84 Physical Exam Constitutional: Well developed well nourished, no acute distress. Tobacco odor. Head: + facial symmetry, corrective lenses Eyes: Full EOMs, PERRLA, no conjunctiva injection Mouth: No erythema or exudate. Dentures in place. Mallampati IV. Throat: trachea midline, no adenopathy Respiratory: Non-labored respirations. Breath sounds present all jacobo. Poor air movement. Bilateral rales and wheeze. Cardiovascular: Regular rate and rhythm, no murmur appreciated. +[2] radial pulses. [<1s] capillary refill. Venous stasis changes. Extremities/MSK: moving symmetrically. No peripheral edema. Neurologic: Alert and Oriented x 3. Appropriate affect
[~2017-10-18] VITALS: Ht 167.6 cm; Wt 78.2 kg
[2017-10-18] VITALS (9 sets, daily range): BP systolic 120–147; BP diastolic 78–87; PULSE 99–118; TEMP 36.4–36.8; O2SAT 91–96; Ht 167.6 cm; Wt 78.2 kg
[~2017-10-18 07:05] MED LIST changes: -VORT10TA12 PEG; +VORT10TA12 PO
[2017-10-18] MEDS ORDERED: NURSING VERBAL MED ORDER ONE ×3 (08:45→10:15)
--- NOTE | 2017-10-18 08:45 | History & Physical Bridge Note ---
H&P Re-Evaluation Bridge Note: I have examined the patient, reviewed the History & Physical and in the interval since the performance of the History & Physical I have noted the following changes of clinical significance: No changes noted
--- NOTE | 2017-10-18 08:46 | Pre Sedation Assessment ---
Pre Sedation Assessment General Date of Sedation: Oct 18, 2017. Vital Signs Past 12 Hours Date Time Temp Pulse Resp B/P (MAP) Pulse Ox O2 Delivery O2 Flow Rate FiO2 10/18/17 08:21 36.4 107 24 147/84 (105) 96 Room Air Review Cardiovascular: regular rate, rhythm, no edema, no gallop, no JVD, no murmur, normal peripheral pulses Lungs: + wheezing Pre-Sedation Airway Assessment Smoking Status: Current Every Day Smoker Hx of Sleep Apnea: Yes Hx of difficult intubation: No Short Thick Neck: Yes Thyro-mental Distance: > 3 Finger Breadths Oral Cavity: Dentures Mallampati Classification: Class II ASA Classification: Class II Procedure Planning Contraindications for Sedation: None Current Medications Reviewed: Yes Notes The planned sedation has been discussed with the patient. Informed Consent was obtained. I have identified the patient, determined the appropriateness of sedation and have assessed the patient immediately prior to the procedure. All medicine(s) and interventions are by my order.
[2017-10-18] MEDS ORDERED: ALBUT/IPRATROP 3MG/0.5MG NEB 3 ML VIAL INH SCH (09:00)
--- NOTE | 2017-10-18 09:38 | Post Sedation Assessment ---
Post Sedation Assessment General Date of Sedation Oct 18, 2017. Vital Signs: Vital Signs Past 12 Hours Date Time Temp Pulse Resp B/P (MAP) Pulse Ox O2 Delivery O2 Flow Rate FiO2 10/18/17 08:51 99 18 96 Room Air 10/18/17 08:43 36.4 24 147/84 (105) 96 Room Air 10/18/17 08:21 36.4 107 24 147/84 (105) 96 Room Air Post Procedure Recovery Score Activity: (2) Moves 4 extremities * Respiration: (2) Deep breath/cough Circulation: (2) +/-20% PreAnes Value Consciousness: (2) Fully Awake Oxygen Saturation: (2) > 92% On Room Air Discharge Sedation Level of Care: Fast Track Phase II Post Sedation Plan On clinical assessment, the patient appears to have tolerated the sedation without complications. Patient is recovering as anticipated. Patient will continue to be monitored by nursing and may be discharged when sedation discharge criteria are met per below protocol. Upon Completions of procedure and additional 15 minutes continue every 5 minute vital signs and the P.A.R. score; then discharge to a Phase I or Fast Track to Phase II per the following guidelines: * Discharge Patient to appropriate Phase II area if PAR is 8 or greater or return to pre- procedure baseline. The post - procedure orders will be as directed. * If PAR score is less than 8 or not return to pre-procedure baseline then patient will follow Phase I monitoring till PAR is reached for Phase II. The Phase I may be done in procedure room or may call to secure a Phase I area. * If naloxone or flumazenil are used for reversal, hold in Phase I for an additional 60 -120 minutes before discharge to Phase II. Please call the Sedation Physician to re-evaluate and complete post-note for discharge to Phase II area. Do NOT discharge from procedure sedation or Phase 1 until post- sedation evaluation note is complete by procedure /sedation MD Sedation Discharge Instructions to be given to the patient at discharge to home.
--- NOTE | 2017-10-18 09:40 | Bronchoscopy Procedure Note ---
Bronchoscopy Procedure Note Procedure: Bronchoscopy, conscious sedation, bronchial lavage Consent: Obtained through the patient placed into the chart Pre-procedural diagnosis: Chronic cough unresponsive to therapy Post-procedural diagnosis: Chronic cough unresponsive to therapy Start time: 919 End time: 932 Total time: 13minutes Analgesia: 2% liquid lidocaine: Via nebulizer 4% gel lidocaine: Via right naris 2% liquid lidocaine: Via bronchoscopy Sedation: Versed IV: 3 mg Fentanyl IV: 50 g Procedure: The Olympus video bronchoscope was used for this procedure and passed down through the right naris Right naris/posterior naris/posterior oropharynx: Anatomically within normal limits, diffuse nasal erythema Glottis: Anatomically within normal limits Vocal cords: Proper abduction and abduction, anatomically within normal limits Subglottis/trachea/Johnna: Anatomically within normal limits Right bronchial tree: Right mainstem bronchus: Anatomically within normal limits Right upper lobe: Anatomically within normal limits Bronchus intermedius: Anatomically within normal limits Right middle lobe: Anatomically within normal limits Right lower lobe: Anatomically within normal limits Findings: No significant findings noted Left bronchial tree: Left mainstem bronchus: Anatomically within normal limits Left upper lobe: Anatomically within normal limits Lingula: Anatomically within normal limits Left lower lobe: Anatomically within normal limits Findings: No significant findings noted Bronchial alveolar lavage: Right middle lobe EBL: None Complications: None Follow-up: ASU
--- NOTE | 2017-10-18 09:42 | Discharge Instructions ---
Discharge Instructions Date of Service Oct 18, 2017. Admission Reason for Admission: Bronchiectasis Discharge Discharge Diagnosis / Problem: Chronic cough Discharge Goals Goal(s): Diagnostic testing Activity Recommendations Activity Limitations: resume your previous activity Exercise/Sports Limitations: as tolerated Driving or Machine Use: resume 1 day after discharge . Instructions / Follow-Up Instructions / Follow-Up Follow-up with provider Evangelina Valero in the pulmonary clinic Current Hospital Diet Patient's current hospital diet: Discharge Diet Recommended Diet: Regular Diet Procedures Procedures Performed: Bronchoscopy, conscious sedation, bronchial lavage of the right middle lobe Pending Studies Studies pending at discharge: no Medical Emergencies . Who to Call and When: Medical Emergencies: If at any time you feel your situation is an emergency, please call 911 immediately. . Non-Emergent Contact Non-Emergency issues call your: Dairy Lab Technician Call Non-Emergent contact if: temperature is above 101 . . "Provider Documentation" section prepared by Gato Magaña. .
[2017-10-18] MEDS ORDERED: LIDOCAINE 4% INH SOLN 4 ML BTL TOP ONE (09:50)
[2017-10-18] MEDS ORDERED: FENTANYL CITRATE INJ 50 MCG/1 ML 2 ML VIAL IV ONE (09:50)
[2017-10-18] MEDS ORDERED: MIDAZOLAM HCL 5 MG/ML 1 ML VIAL IV ONE (09:50)
[2017-10-18] MEDS ORDERED: LIDOCAINE HCL 2% LOCAL 50ML VIAL INSTIL ONE (09:50)
[2017-10-18] MEDS ORDERED: LIDOCAINE VISCOUS 2% 100ML TOP ONE (09:50)
== END 2017-10-18 12:01 | disposition home or self-care (01) ==
LOC: C.ACU 07:05
PROVIDERS: ATTEND Internal Medicine Critical Care Medicine
DX: J42 Unspecified chronic bronchitis (principal); J44.9 Chronic obstructive pulmonary disease, unspecified; G47.30 Sleep apnea, unspecified; F17.200 Nicotine dependence, unspecified, uncomplicated; E78.5 Hyperlipidemia, unspecified; F10.21 Alcohol dependence, in remission; Z87.01 Personal history of pneumonia (recurrent); Z79.899 Other long term (current) drug therapy; Z83.3 Family history of diabetes mellitus; Z82.49 Family history of ischemic heart disease and other diseases of the circulatory system; Z81.1 Family history of alcohol abuse and dependence